=== PATIENT | female | born 1980 | race Two or more races ===

== ENCOUNTER 2020-09-19 17:23 | Outpatient (REF) | payer OTHER, SELFPAY | END 2020-09-19 17:24 | disposition home or self-care (01) | LOC: HO.LAB 17:23 | PROVIDERS: PCP Internal Medicine; Visit Provider Internal Medicine | DX: Z20.828 Contact with and (suspected) exposure to other viral communicable diseases (principal) | CPT/HCPCS: C9803; U0003 ==

== ENCOUNTER 2020-11-30 11:39 | Outpatient (REF) | payer OTHER, SELFPAY ==
--- NOTE | 2020-11-30 | MM_ITS ---
EXAMINATION: MM SCREENING DIGITAL BREAST TOMOSYNTHESIS, BILATERAL CLINICAL INFORMATION: Screening. Asymptomatic. The lifetime risk of breast cancer based on the Tyrer-Cuzick Model is 7.8%. COMPARISON: Mammography: April 29, 2018 TECHNIQUE: Digital breast tomosynthesis is performed in both the craniocaudal and mediolateral oblique views along with computer-aided detection (CAD). Synthesized 2D images are generated from the tomosynthesis. FINDINGS: There are scattered areas of fibroglandular density (ACR BI-RADS breast composition Category b). There are no significant masses, abnormal calcifications, or other abnormalities. MM/MM tomosynthesis screening BI IMPRESSION: There are no significant changes from prior study. ASSESSMENT: BI-RADS 1: Negative RECOMMENDATION: Routine annual mammography screening. This patient's information was entered into a reminder system with a target due date for their next mammogram.
== END 2020-11-30 11:40 | disposition home or self-care (01) ==
LOC: HO.MAMMO 11:39
PROVIDERS: PCP Internal Medicine; Visit Provider Internal Medicine
DX: Z12.31 Encounter for screening mammogram for malignant neoplasm of breast (principal)
CPT/HCPCS: 77063; 77067

== ENCOUNTER 2021-01-10 13:29 | Outpatient (REF) | payer OTHER, SELFPAY ==
--- NOTE | ~2021-01-10 | XR_ITS ---
EXAMINATION: XR LUMBOSACRAL SPINE CLINICAL INFORMATION: Pain COMPARISON: Previous x-ray January 2016 TECHNIQUE: Three views of the lumbosacral spine. FINDINGS: Bone alignment is normal. No fracture or dislocation is seen. There is soft tissue calcification posterior to the L5-S1 disc space that is stable. Disc spaces are otherwise normal. There is lower lumbar spine facet arthritis, left greater than right. XR/XR lumbar spine 2-3V IMPRESSION: Lower lumbar spine facet arthritis, left greater than right. Soft tissue calcification posterior to the L5-S1 disc space.
[2021-01-10 14:33] LABS: MANUAL DIFF FLAG NO
[2021-01-10 14:36] LABS: Basophils Absolute Auto 0.1 X10*3/uL (0.0-0.2); Basophils Percent Auto 0.7 % (0-2); Eosinophils Absolute Auto 0.1 X10*3/uL (0.0-0.4); Eosinophils Percent Auto 0.7 % (0-4); Hematocrit 25.8 % (37-47); Imm Gran Abs Auto 0.02 X10*3/uL (0.00-0.03); Imm Gran Pct Auto 0.3 % (0.0-0.4); Lymphocytes Absolute Auto 1.8 X10*3/uL (1.2-4.9); Lymphocytes Percent Auto 26.6 % (20-40); Mean Corpuscular HGB Conc 25.6 g/dl (31.0-35.0); Mean Platelet Volume 9.8 fL (9.4-12.3); Monocytes Absolute Auto 0.5 X10*3/uL (0.1-1.2); Monocytes Percent Auto 7.8 % (2-11); Neutrophils Absolute Auto 4.4 X10*3/uL (2.0-8.3); Neutrophils Percent Auto 63.9 % (45-73); Platelet Count 742 X10*3/uL (160-400); Red Blood Count 4.13 X10*6/uL (4.20-5.50); Red Cell Distribution Width 21.3 % (11.0-16.0); White Blood Count 6.9 X10*3/uL (4.8-10.8)
[2021-01-10 14:49] LABS: Hemoglobin 6.6 g/dl (12.0-16.0); Mean Corpuscular Volume 62.5 fL (80-98)
[2021-01-10 14:59] LABS: Alanine Aminotransferase 11 U/L (0-31); Albumin Level 4.2 g/dL (3.5-5.0); Alkaline Phosphatase 54 U/L (39-117); Anion Gap 14 (12-20); Aspartate Amino Transferase 13 U/L (5-31); Bilirubin Total 0.4 mg/dL (0.0-1.0); Blood Urea Nitrogen 11 mg/dL (9-16); Calcium 8.9 mg/dL (8.4-10.2); Carbon Dioxide 22 mmol/L (22-29); Chloride 108 mmol/L (96-108); Cholesterol 127 mg/dL; Estimated Glomerular Filt Rate > 60; Glucose Fasting 87 mg/dL (60-99); HDL Cholesterol 35 mg/dL; LDL Cholesterol Calculated 74 mg/dl; Potassium 4.1 mmol/L (3.3-5.1); Sodium 140 mmol/L (135-145); Total Protein 7.4 g/dL (6.5-8.0); Triglycerides 92 mg/dL
[2021-01-10 15:20] LABS: Thyroid Stimulating Hormone 1.73 uIU/mL (0.32-4.0)
== END 2021-01-10 13:30 | disposition home or self-care (01) ==
LOC: HO.LAB 13:29
PROVIDERS: PCP Internal Medicine; Visit Provider Internal Medicine
DX: Z00.00 Encounter for general adult medical examination without abnormal findings (principal); E11.9 Type 2 diabetes mellitus without complications; M54.5 Low back pain; E03.9 Hypothyroidism, unspecified; Z79.899 Other long term (current) drug therapy
CPT/HCPCS: 36415; 72100; 80053; 80061; 84443; 85025; 85060

== ENCOUNTER 2021-01-10 16:03 | Inpatient (IN) | payer OTHER, SELFPAY ==
[2021-01-10] VITALS (7 sets, daily range): BP systolic 113–147; BP diastolic 69–77; PULSE 67–96; RESP 15–18; TEMP 36.4–37.1; O2SAT 99–100; BMI 35.3
[2021-01-10] MEDS: 0.9 % Sodium Chloride 1,000 ML 999 ML IV (17:15)
[2021-01-10 17:20] LABS: MANUAL DIFF FLAG NO
[2021-01-10 17:22] LABS: Basophils Absolute Auto 0.1 X10*3/uL (0.0-0.2); Basophils Percent Auto 0.7 % (0-2); Eosinophils Absolute Auto 0.1 X10*3/uL (0.0-0.4); Hematocrit 24.2 % (37-47); Imm Gran Abs Auto 0.03 X10*3/uL (0.00-0.03); Imm Gran Pct Auto 0.4 % (0.0-0.4); Lymphocytes Absolute Auto 2.1 X10*3/uL (1.2-4.9); Lymphocytes Percent Auto 30.8 % (20-40); Mean Corpuscular HGB Conc 26.4 g/dl (31.0-35.0); Mean Corpuscular Hemoglobin 16.3 pg (27.0-33.0); Mean Corpuscular Volume 61.6 fL (80-98); Mean Platelet Volume 8.7 fL (9.4-12.3); Monocytes Absolute Auto 0.5 X10*3/uL (0.1-1.2); Monocytes Percent Auto 7.5 % (2-11); Neutrophils Absolute Auto 4.1 X10*3/uL (2.0-8.3); Neutrophils Percent Auto 59.6 % (45-73); Platelet Count 640 X10*3/uL (160-400); Red Blood Count 3.93 X10*6/uL (4.20-5.50); Red Cell Distribution Width 20.6 % (11.0-16.0); White Blood Count 6.8 X10*3/uL (4.8-10.8)
[2021-01-10 17:30] LABS: Hemoglobin 6.4 g/dl (12.0-16.0)
[2021-01-10 17:50] LABS: Alanine Aminotransferase 9 U/L (0-31); Alkaline Phosphatase 51 U/L (39-117); Anion Gap 13 (12-20); Aspartate Amino Transferase 13 U/L (5-31); Bilirubin Total 0.3 mg/dL (0.0-1.0); Blood Urea Nitrogen 10 mg/dL (9-16); Calcium 8.6 mg/dL (8.4-10.2); Carbon Dioxide 23 mmol/L (22-29); Chloride 109 mmol/L (96-108); Creatinine Clr Calc Pharmacy 103.8; Estimated Glomerular Filt Rate > 60; Glucose Random 108 mg/dL (60-115); Potassium 4.1 mmol/L (3.3-5.1); Sodium 141 mmol/L (135-145)
[2021-01-10 17:51] LABS: INTERNATIONAL NORM RATIO 1.2 (0.9-1.1); Prothrombin Time 14.8 SEC (10.8-13.0)
[2021-01-10 17:53] LABS: Partial Thromboplastin Time 32.8 SEC (24.1-38.0)
[2021-01-10 17:57] LABS: HCG Quantitative < 2 mIU/mL
[2021-01-10 19:14] LABS: OBS Int Ctl Valid YES; OBS1 POS (NEG)
--- NOTE | 2021-01-10 19:42 | ED.RECABL ---
HPI - Recheck/Abnormal Lab/Rx General Chief Complaint: Recheck/Abnormal Lab/Rx Stated Complaint: abnormal labs Time Seen by Provider: 01/10/21 16:55 Source: patient Mode of arrival: ambulatory Limitations: no limitations History of Present Illness HPI narrative: Patient presents to the ED for low hemoglobin/hematocrit. Patient was referred by PCP for low blood level. Patient's complaint is dizziness and lightheadedness. Patient denies any rectal bleeding, vomiting blood, black stool, or abdominal pain. Patient states having heavy menstruation for the past 5 months. Patient denies any history of alcohol abuse. Patient states history of anemia. Patient denies ever receiving blood transfusion. Related Data Allergies Allergy/AdvReac Type Severity Reaction Status Date / Time No Known Allergies Allergy Verified 01/10/21 16:06 Review of Systems Review of Systems: Yes all other systems are reviewed and are negative Constitutional: Constitutional: Reports as per HPI, Reports no additional constitutional complaints and Reports weakness Comments: Dizziness Eyes: Eyes: Reports as per HPI and Reports no additional eye complaints ENT: Reports system reviewed and no additional complaints, except as documented and Reports as per HPI Cardiovascular: Cardiovascular: Reports as per HPI, Reports no additional cardiovascular complaints and Reports lightheadedness Respiratory: Respiratory: Reports as per HPI and Reports no additional respiratory complaints Gastrointestinal: Gastrointestinal: Reports as per HPI and Reports no additional gastrointestinal complaints Genitourinary: Genitourinary: Reports no additional female genitourinary complaints and Reports as per HPI Comments: Vaginal bleeding Musculoskeletal: Musculoskeletal: Reports no additional musculoskeletal complaints and Reports as per HPI Integumentary/Breasts: Skin/Breast: Reports system reviewed and no additional complaints, except as docu and Reports as per HPI Neurologic: Reports system reviewed and no additional complaints, except as documented, Reports as per HPI and Reports weakness Psychiatric: Psychiatric: Reports no additional psychiatric complaints and Reports as per HPI Endocrine: Endocrine: Reports no additional endocrine complaints and Reports as per HPI PMFSH Past Medical History Medical History (Updated 01/10/21 @ 21:11 by SHAKIRA Gibson) History of kidney stones Surgical History History of Family History Family History (Updated 01/10/21 @ 13:13 by Meggan Calderón) Mother Diabetes High blood pressure High cholesterol Father High blood pressure Social History Social History (Updated 01/10/21 @ 13:13 by Meggan Calderón) Alcohol intake: never Smoking Status: Never smoker Smoked in Last 30 Days: No Use of substances other than those prescribed or required for medical reasons: No Advance Directives: No Advance Directives Information Provided: No Physical Exam Vital Signs: Vital Signs: Last Vital Signs Temp 98.6 F 01/10/21 20:30 Pulse 67 01/10/21 20:30 Resp 15 01/10/21 20:30 BP 125/74 01/10/21 20:30 Pulse Ox 100 01/10/21 20:04 Body Mass Index 35.3 Const: General: cooperative, healthy appearing, comfortable, no acute distress, well developed, alert, awake and Physically active Orientation/consciousness: patient oriented x3 HENMT: Head: Yes normal to inspection, Yes No palpable skull fracture present, Yes normocephalic, Yes atraumatic, No abrasion, No Andrews's sign, No contusion, No cranial bruits, No hematoma, No laceration, No occipital foramen tenderness, No palpable skull fracture, No raccoon eyes, No scalp lesion, No scalp tenderness, No Temporal artery tenderness present and No periorbital ecchymosis Eyes: General: appearance normal, both eyes and all related structures Neck: Neck: Yes normal visual inspection, Yes full ROM, Yes no lymphadenopathy, Yes no meningeal signs, Yes trachea midline, Yes supple and No tender Chest: Chest palpation & inspection: normal inspection of the chest and normal palpation of entire chest wall Breast/axilla inspection: normal inspection of the breasts Resp: Effort & Inspection: normal respiratory effort and able to speak in complete sentences Auscultation: clear to auscultation bilaterally Cardio: Jugular venous distension: no JVD Heart sounds: S1 normal heart sound present and S2 normal heart sound present GI: Inspection: Yes normal to inspection and No abdominal wall ecchymosis Palpation (GI): Soft to palpation, not firm, nontender, no guarding and not rigid : Other: Rectal exam negative for efrain blood or black stool. Stool is brown General: No CVA tenderness and Yes no CVA tenderness External Female Exam: normal external appearance Speculum Exam - Vagina: vaginal bleeding (Mild. Not hemorrhaging.) Speculum Exam - Cervix: normal appearance of the cervix Bimanual exam- vagina & uterus: normal bimanual exam OB/external & speculum: vaginal bleeding (Mild. Not hemorrhaging.) Back/Spine/Pelvis: Back: no CVA tenderness, No CVA tenderness and No back tenderness Skin: General skin exam: no rashes or lesions noted and elasticity normal Neuro: General: patient oriented x3, no meningeal signs and CN's II-XI intact bilaterally Cranial nerves: Yes CN's II-XII intact bilaterally Extrem: General: Yes normal to inspection and Yes full ROM Psych: Appearance: grossly normal, well kempt and not disheveled Course Course Course Narrative: Patient will have repeat hemoglobin hematocrit, type and screen, and rest of labs. Reevaluation(s) Reevaluation #1: Patient vital signs stable. Patient's hemoglobin/hematocrit came back lower. Two packs of red blood cells ordered. Patient signed consent agreeable to blood transfusion. Stool guaiac came back positive. This indicates more GI bleed and not vaginal bleeding cause of anemia. Once again patient denies any abdominal pain, vomiting blood, rectal bleeding, black stool. Patient denies any history of hemorrhoids. Rectal exam negative for external hemorrhoids. Contacted Dr. Hess of Gastroenterology in a waiting for response. Time: 19:54 Reevaluation #2: Spoke with Dr. Hess of gastroenterology who recommends patient be admitted to the hospital and received Protonix. He agrees with plan for patient to receive 2 L of red blood cells. He also states patient will have endoscope in the morning. Spoke with hospitalist Dr. Boyer who agreed to accept the case. Patient presently have stable vital signs. Most likely patient is having GI bleed and anemia not caused by small amount of vaginal bleeding. Time: 21:09 MDM - Recheck/Abnormal Lab/Rx MDM Narrative Medical decision making narrative: GI bleed Lab Data Result diagrams: 01/10/21 17:14 01/10/21 17:14 Labs: Lab Results 01/10/21 01/10/21 01/10/21 Range/Units 17:14 17:14 17:14 WBC 6.8 (4.8-10.8) X10*3/uL RBC 3.93 L (4.20-5.50) X10*6/uL Hgb 6.4 L* (12.0-16.0) g/dl Hct 24.2 L (37-47) % MCV 61.6 L (80-98) fL MCH 16.3 L (27.0-33.0) pg MCHC 26.4 L (31.0-35.0) g/dl RDW 20.6 H (11.0-16.0) % Plt Count 640 H (160-400) X10*3/uL MPV 8.7 L (9.4-12.3) fL Immature Gran % (Auto) 0.4 (0.0-0.4) % Neut % (Auto) 59.6 (45-73) % Lymph % (Auto) 30.8 (20-40) % [place] % (Auto) 7.5 (2-11) % Eos % (Auto) 1.0 (0-4) % Baso % (Auto) 0.7 (0-2) % Lymph # (Auto) 2.1 (1.2-4.9) X10*3/uL [place] # (Auto) 0.5 (0.1-1.2) X10*3/uL Eos # (Auto) 0.1 (0.0-0.4) X10*3/uL Baso # (Auto) 0.1 (0.0-0.2) X10*3/uL Abs Immat Gran (auto) 0.03 (0.00-0.03) X10*3/uL Absolute Neuts (auto) 4.1 (2.0-8.3) X10*3/uL Absolute Nucleated RBC 0.000 (0.0-0.012) X10*3/uL Nucleated RBC % (auto) 0.0 (0.0-0.2) /100WBC PT 14.8 H (10.8-13.0) SEC INR 1.2 H (0.9-1.1) APTT 32.8 (24.1-38.0) SEC Sodium 141 (135-145) mmol/L Potassium 4.1 (3.3-5.1) mmol/L Chloride 109 H (96-108) mmol/L Carbon Dioxide 23 (22-29) mmol/L Anion Gap 13 (12-20) BUN 10 (9-16) mg/dL Creatinine 0.67 (0.5-1.4) mg/dL Estim Creat Clear Calc 103.8 Estimated GFR > 60 Random Glucose 108 (60-115) mg/dL Calcium 8.6 (8.4-10.2) mg/dL Total Bilirubin 0.3 (0.0-1.0) mg/dL AST 13 (5-31) U/L ALT 9 (0-31) U/L Alkaline Phosphatase 51 (39-117) U/L Total Protein 7.0 (6.5-8.0) g/dL Albumin 4.0 (3.5-5.0) g/dL Beta HCG, Quant mIU/mL Stool Occult Blood (NEG) Blood Type Antibody Screen Crossmatch 01/10/21 01/10/21 01/10/21 Range/Units 17:14 18:35 18:35 WBC (4.8-10.8) X10*3/uL RBC (4.20-5.50) X10*6/uL Hgb (12.0-16.0) g/dl Hct (37-47) % MCV (80-98) fL MCH (27.0-33.0) pg MCHC (31.0-35.0) g/dl RDW (11.0-16.0) % Plt Count (160-400) X10*3/uL MPV (9.4-12.3) fL Immature Gran % (Auto) (0.0-0.4) % Neut % (Auto) (45-73) % Lymph % (Auto) (20-40) % [place] % (Auto) (2-11) % Eos % (Auto) (0-4) % Baso % (Auto) (0-2) % Lymph # (Auto) (1.2-4.9) X10*3/uL [place] # (Auto) (0.1-1.2) X10*3/uL Eos # (Auto) (0.0-0.4) X10*3/uL Baso # (Auto) (0.0-0.2) X10*3/uL Abs Immat Gran (auto) (0.00-0.03) X10*3/uL Absolute Neuts (auto) (2.0-8.3) X10*3/uL Absolute Nucleated RBC (0.0-0.012) X10*3/uL Nucleated RBC % (auto) (0.0-0.2) /100WBC PT (10.8-13.0) SEC INR (0.9-1.1) APTT (24.1-38.0) SEC Sodium (135-145) mmol/L Potassium (3.3-5.1) mmol/L Chloride (96-108) mmol/L Carbon Dioxide (22-29) mmol/L Anion Gap (12-20) BUN (9-16) mg/dL Creatinine (0.5-1.4) mg/dL Estim Creat Clear Calc Estimated GFR Random Glucose (60-115) mg/dL Calcium (8.4-10.2) mg/dL Total Bilirubin (0.0-1.0) mg/dL AST (5-31) U/L ALT (0-31) U/L Alkaline Phosphatase (39-117) U/L Total Protein (6.5-8.0) g/dL Albumin (3.5-5.0) g/dL Beta HCG, Quant < 2 mIU/mL Stool Occult Blood POS (NEG) Blood Type A Positive Antibody Screen NEGATIVE Crossmatch See Detail Discharge Plan Discharge Clinical Impression: Acute GI bleeding Patient Disposition: Admitted As Inpatient
--- NOTE | 2021-01-10 20:32 | P.HPHOSP_ITS ---
History of Present Illness Date of Service: 01/10/21 Chief Complaint: Anemia 40-year-old female with the no significant past medical history except for kidney stones; presented to the hospital with a chief complaint of abnormal labs. Noted to have low hemoglobin on routine labs by the PCP and subsequently sent to the hospital for further evaluation. Patient denies any blood in the stool or blood in the vomitus. Denies any signs of active bleeding. Denies any lightheadedness dizziness. Denies any chest pain palpitations. Denies any fever chills cough. Patient mentions that she has been having heavy menstruations lately. And this time she just started her menstruation today denies any gross bleeding. Review of all other systems is negative except mentioned above ER course: Per ER team patient clinically appears stable, vitals stable, hemoglobin noted to be 6.4. Ordered 2 units of PRBC. On rectal exam patient was guaiac positive. Discussed with Dr. Hess from Gastroenterology who recommended to keep NPO for possible endoscopy tomorrow morning. ER team also mentioned that a pelvic exam that is found minimal blood-attributed to 1st day of menstrual cycle. [facility] Medical History (Updated 01/18/21 @ 00:01 by Tricia Calvillo) Acute GI bleeding Anemia Back pain History of kidney stones Thrombocytosis Family History Mother Diabetes High blood pressure High cholesterol Father High blood pressure Surgical History History of History of lithotripsy S/P cystoscopy with ureteral stent placement S/P tubal ligation Social History Household Members: Family Housing: House Alcohol intake: never Smoking Status: Never smoker service: No Meds Allergies Allergy/AdvReac Type Severity Reaction Status Date / Time No Known Allergies Allergy Verified 01/16/21 14:40 Active Medications: Current Medications Generic Name Dose Route Start Last Admin Trade Name Freq PRN Reason Stop Dose Admin Acetaminophen 650 mg 01/10/21 20:29 Acetaminophen 325 Mg Tablet PO Q6H PRN Pain, Mild (Pain Scale 1-3) Dextrose/Sodium Chloride 1,000 mls @ 100 mls/hr 01/10/21 20:30 D51/2ns IVCONT .Q10H FARZAD Sodium Chloride 3 ml 01/11/21 00:00 0.9 % Sodium Chloride Flush 3 Ml Syringe IVFLUSH QSHIFT [facility] Physical Exam Vital Signs and Narrative: Vital Signs: Last Vital Signs Temp 98.6 F 01/10/21 20:15 Pulse 74 01/10/21 20:15 Resp 15 01/10/21 20:15 BP 134/74 01/10/21 20:15 Pulse Ox 100 01/10/21 20:04 Body Mass Index 35.3 Gen: Appears be in no acute distress HEENT: NCAT, Moist mucosa. Pulmonary: Vesicular breath sounds, fair air entry CVS: Normal S1-S2 Abdomen: BS+, Soft, Nontender Extremities: Warm well perfused Neuro: Alert and awake. Results Labs CBC and Chem 7: 01/12/21 08:23 01/11/21 05:44 Labs: Laboratory Results - last 24 hr 01/10/21 01/10/21 01/10/21 17:14 17:14 17:14 MCV 61.6 L MCH 16.3 L MCHC 26.4 L RDW 20.6 H Plt Count 640 H MPV 8.7 L Immature Gran % (Auto) 0.4 Neut % (Auto) 59.6 Lymph % (Auto) 30.8 Bureau % (Auto) 7.5 Eos % (Auto) 1.0 Baso % (Auto) 0.7 Lymph # (Auto) 2.1 Bureau # (Auto) 0.5 Eos # (Auto) 0.1 Baso # (Auto) 0.1 Abs Immat Gran (auto) 0.03 Absolute Neuts (auto) 4.1 Absolute Nucleated RBC 0.000 Nucleated RBC % (auto) 0.0 PT 14.8 H INR 1.2 H APTT 32.8 Anion Gap 13 Estim Creat Clear Calc 103.8 Estimated GFR > 60 Random Glucose 108 Calcium 8.6 Total Bilirubin 0.3 AST 13 ALT 9 Alkaline Phosphatase 51 Total Protein 7.0 Albumin 4.0 Beta HCG, Quant Stool Occult Blood Blood Type Antibody Screen Crossmatch 01/10/21 01/10/21 01/10/21 17:14 18:35 18:35 MCV MCH MCHC RDW Plt Count MPV Immature Gran % (Auto) Neut % (Auto) Lymph % (Auto) Bureau % (Auto) Eos % (Auto) Baso % (Auto) Lymph # (Auto) Bureau # (Auto) Eos # (Auto) Baso # (Auto) Abs Immat Gran (auto) Absolute Neuts (auto) Absolute Nucleated RBC Nucleated RBC % (auto) PT INR APTT Anion Gap Estim Creat Clear Calc Estimated GFR Random Glucose Calcium Total Bilirubin AST ALT Alkaline Phosphatase Total Protein Albumin Beta HCG, Quant < 2 Stool Occult Blood POS Blood Type A Positive Antibody Screen NEGATIVE Crossmatch See Detail Assessment and Plan (1) Anemia: Problem details: S/p blood transfusion Status: Acute 40-year-old female with a past medical history of kidney stones presented to the hospital with a chief complaint of abnormal labs-noted to have anemia. Admitted for further management. Anemia: Patient is guaiac positive. Also reports heavy menstruations. Today is her 1st day of menstrual cycle for this month. Patient's hemoglobin on presentation was 6.4. Ordered 2 units of PRBC in the ER. Follow-up CBC post transfusion. Gastroenterology consult was notified. Will keep her NPO IV fluids Monitor vitals Seevere Microcytic anemia: will send Iron studies; folate, b12, TSH, LDH,Retic count; Electrophoresis. DVT prophylaxis: SCD boots Code status: Full code
[2021-01-10 21:33] LABS: COVID-19 Test Negative (Negative)
[2021-01-11] VITALS (11 sets, daily range): BP systolic 118–142; BP diastolic 68–81; PULSE 59–72; RESP 16–20; TEMP 36.2–36.9; O2SAT 97–100; BMI 35.3
[2021-01-11] MEDS: 0.9 % Sodium Chloride Flush 3 ML SYRINGE IVFLUSH ×4 (00:02→22:53)
--- NOTE | 2021-01-11 00:05 | PC.NURSE ---
call placed to give report.
[2021-01-11] MEDS: Acetaminophen 325 MG TABLET 650 MG PO ×2 (02:47→17:02)
[2021-01-11] MEDS: Dextrose 5 % and 0.45 % NaCl 1,000 ML 100 ML IVCONT (03:09)
[2021-01-11 06:10] LABS: MANUAL DIFF FLAG NO
[2021-01-11 06:14] LABS: Basophils Absolute Auto 0.1 X10*3/uL (0.0-0.2); Basophils Percent Auto 0.7 % (0-2); Eosinophils Absolute Auto 0.1 X10*3/uL (0.0-0.4); Eosinophils Percent Auto 1.5 % (0-4); Hematocrit 30.3 % (37-47); Hemoglobin 8.6 g/dl (12.0-16.0); Imm Gran Abs Auto 0.02 X10*3/uL (0.00-0.03); Imm Gran Pct Auto 0.3 % (0.0-0.4); Lymphocytes Absolute Auto 2.4 X10*3/uL (1.2-4.9); Lymphocytes Percent Auto 33.1 % (20-40); Mean Corpuscular HGB Conc 28.4 g/dl (31.0-35.0); Mean Corpuscular Hemoglobin 19.4 pg (27.0-33.0); Mean Corpuscular Volume 68.2 fL (80-98); Mean Platelet Volume 9.2 fL (9.4-12.3); Monocytes Absolute Auto 0.6 X10*3/uL (0.1-1.2); Monocytes Percent Auto 8.6 % (2-11); NRBC Pct Auto 0.3 /100WBC (0.0-0.2); Neutrophils Absolute Auto 4.1 X10*3/uL (2.0-8.3); Neutrophils Percent Auto 55.8 % (45-73); Platelet Count 560 X10*3/uL (160-400); Red Blood Count 4.44 X10*6/uL (4.20-5.50); Red Cell Distribution Width 27.3 % (11.0-16.0); White Blood Count 7.3 X10*3/uL (4.8-10.8)
[2021-01-11] MEDS: Pantoprazole Sodium 40 MG/10 ML VIAL IVPUSH ×2 (06:27→17:02)
[2021-01-11 06:49] LABS: Anion Gap 12 (12-20); Blood Urea Nitrogen 6 mg/dL (9-16); Calcium 8.1 mg/dL (8.4-10.2); Carbon Dioxide 23 mmol/L (22-29); Chloride 110 mmol/L (96-108); Creatinine Clr Calc Pharmacy 126.5; Estimated Glomerular Filt Rate > 60; Glucose Random 78 mg/dL (60-115); Iron 152 mcg/dL (30-160); Percent Iron Saturation 37 % (15-50); Sodium 141 mmol/L (135-145); Total Iron Binding Capacity 414 mcg/dL (228-428); Unsaturated Iron Binding 262 ug/dL
[2021-01-11 07:11] LABS: Ferritin 5 ng/mL (10-250)
--- NOTE | 2021-01-11 07:54 | PM.GICN ---
History of Present Illness Data of Consult Service Date: 01/11/21 Requesting physician: Dariusz Ceballos Primary Care Provider: Ellis Diego MD HPI Reason for consult: anemia 40-year-old female with hx kidney stones who I am seeing for assessment of anemia. PCP checked labs and found her HGB to be 6 g/dl so sent to ED. Patient denies any blood in the stool, melena, hematuria, nose bleeds or other signs of overt GI bleeding. Denies any lightheadedness dizziness. Denies any chest pain palpitations. Denies any fever chills cough. She does admit to regular menses may have been heavy 6 months ago but not now. Her appetite is fine and weight is stable Review of Systems Review of Systems: Yes all other systems are reviewed and are negative [facility] Past Medical History Medical History (Updated 01/10/21 @ 21:11 by SHAKIRA Gibson) History of kidney stones Family History Family History (Updated 01/10/21 @ 13:13 by Meggan Calderón) Mother Diabetes High blood pressure High cholesterol Father High blood pressure Surgical History Surgical History History of Social History Social History (Updated 01/10/21 @ 13:13 by Meggan Calderón) Household Members: Family Housing: House Do you presently have visiting nurse or other home services: No Alcohol intake: never Smoking Status: Never smoker Smoked in Last 30 Days: No Use of substances other than those prescribed or required for medical reasons: No Currently Displaying Signs/Symptoms of Drug Intoxication Withdrawal: No Any prior treatment program specific to substance use: No Have you been hit, kicked, punched, or otherwise hurt by someone within the past year? If so, by whom?: No Do you feel safe in your current relationship?: Yes Is there a partner from a previous relationship who is making you feel unsafe now?: No Are you made to feel afraid or neglected: No Advance Directives: No Advance Directives Information Provided: No Do you have thoughts of harming others: None Do you have a plan to hurt others: No Plan Recently lost weight without trying: No service: No Meds Allergies Allergy/AdvReac Type Severity Reaction Status Date / Time No Known Allergies Allergy Verified 01/10/21 16:06 Active Medications: Current Medications Generic Name Dose Route Start Last Admin Trade Name Santo PRN Reason Stop Dose Admin Acetaminophen 650 mg 01/10/21 20:29 01/11/21 02:47 Acetaminophen 325 Mg Tablet PO 650 mg Q6H PRN Administration Pain, Mild (Pain Scale 1-3) Dextrose/Sodium Chloride 1,000 mls @ 100 mls/hr 01/10/21 20:30 01/11/21 06:27 D51/2ns IVCONT 100 mls/hr .Q10H FARZAD Infusion Pantoprazole Sodium 40 mg 01/11/21 06:30 01/11/21 06:27 Pantoprazole Sodium 40 Mg/10 Ml Vial IVPUSH 40 mg BID@0630,1630 [facility] Administration Pharmacy Consult 1 each 01/10/21 20:50 Consult Rx Perform Med Rec MISCELLANE ONCE PRN Consult order Sodium Chloride 3 ml 01/11/21 00:00 01/11/21 00:02 0.9 % Sodium Chloride Flush 3 Ml Syringe IVFLUSH 3 ml QSHIFT [facility] Administration Home Medications Medication Instructions Recorded Confirmed Last Taken Type No Known Home Meds 01/10/21 01/10/21 Unknown History Physical Exam Vital Signs: Vital Signs: Last Vital Signs Temp 98.1 F 01/11/21 07:09 Pulse 72 01/11/21 07:09 Resp 17 01/11/21 07:09 BP 123/72 01/11/21 07:09 Pulse Ox 99 01/11/21 07:09 Body Mass Index 35.3 EXAM: GENERAL: The patient is well developed and nontoxic. VITAL SIGNS:see above HEENT: Nonicteric sclerae, PERRLA, EOMI. Oropharynx clear. Moist mucous membranes. Conjunctivae appear pale. No thyroid mass. CHEST: Chest wall is nontender. HEART: Regular rate and rhythm without murmurs. LUNGS: Clear to auscultation bilaterally. ABDOMEN: Soft, positive bowel sounds, nontender, no organomegaly.no flank tenderness GENITAL:not done RECTAL: not done SKIN: No rash, no excessive bruising, petechiae, or purpura. NEUROLOGIC: Cranial nerves II-XII intact without motor/sensory deficit. Neck: Neck: Yes normal visual inspection Extrem: General: Yes normal to inspection Psych: Appearance: grossly normal Results Labs CBC & Chem 7: 01/11/21 05:44 01/11/21 05:44 Labs: Short CBC 01/10/21 01/11/21 Range/Units 17:14 05:44 WBC 6.8 7.3 (4.8-10.8) X10*3/uL Hgb 6.4 L* 8.6 L D (12.0-16.0) g/dl Hct 24.2 L 30.3 L D (37-47) % Plt Count 640 H 560 H (160-400) X10*3/uL BMP 01/10/21 01/11/21 17:14 05:44 Sodium 141 141 Potassium 4.1 4.0 Chloride 109 H 110 H Carbon Dioxide 23 23 BUN 10 6 L Creatinine 0.67 0.55 Calcium 8.6 8.1 L Liver Function 01/10/21 Range/Units 17:14 Total Bilirubin 0.3 (0.0-1.0) mg/dL AST 13 (5-31) U/L ALT 9 (0-31) U/L Alkaline Phosphatase 51 (39-117) U/L Albumin 4.0 (3.5-5.0) g/dL Assessment and Plan (1) Acute GI bleeding: Status: Acute (2) Anemia: Status: Acute 1/ Asymptomatic anemia with iron def, no overt signs of GI bleeding ddx; small bowel enteropathy, occult GI blood loss e.g neoplasia, polyp, mass crohns, AVM PLAN: 1 EGD and colonoscopy for further assessment 2/ transfuse for HGB target 8 g/dl 3/ will need iron supplements longer term, possible field auto appraiser review if GI w/u is negative, check UA as well
[2021-01-11 08:58] LABS: Folate 10.1 ng/mL (> or = 4.0); Vitamin B12 309 pg/mL (200-900)
--- NOTE | 2021-01-11 09:10 | P.CDIC_ITS ---
CDI Concurrent Query Service Date: 01/11/21 Documentation Clarification: Please clarify if you are treating a proba ble/suspected/likely or confirmed: Acute blood loss anemia poa Please specify if known Provider Response: Acute Blood Loss Anemia PLEASE DO NOT DELETE/MODIFY EXISTING CONTENT Additional information is needed in order to code to the highest accuracy and appropriate Severity of Illness (SOI). Please clarify the information noted below in your progress notes and discharge summary. Risk Factors/Clinical Indicators/Treatments Ed: rectal exam guaiac positive indicates more GI bleed not vaginal bleed causing anemia. HGB 6.6 6.4 HCT 25.8 24.2 Transfused 2 units PRBC H&P: Severe microcytic anemia CDS: Anjelica Frank CCS, CDIS Contact Number: [phone] Please Review the information above and exercise your independent professional judgment in responding to the query. If you concur, pleas document in the PROGRESS NOTES and DISCHARGE SUMMARY. If you do not agree with the query, please document in the query above. THIS QUERY IS PART OF THE PERMANENT MEDICAL RECORD
--- NOTE | 2021-01-11 09:50 | MHC.CM.PN ---
met with pt who is indepedent she does not anticipate neeing ana morgan pt has own transportaion home
--- NOTE | 2021-01-11 13:35 | P.PNIM_ITS ---
Subjective Subjective Date of Service: 01/11/21 Interval History: Patient seen and examined at bedside Patient was reporting weakness Constitutional Constitutional: Reports as per HPI, Reports no additional constitutional complaints and Reports weakness Eyes Eyes: Reports as per HPI and Reports no additional eye complaints ENT Ears, Nose, Mouth, and Throat: Reports system reviewed and no additional complaints, except as documented and Reports as per HPI Cardiovascular Cardiovascular: Reports as per HPI, Reports no additional cardiovascular complaints and Reports lightheadedness Respiratory Respiratory: Reports as per HPI and Reports no additional respiratory complaints Gastrointestinal Gastrointestinal: Reports as per HPI and Reports no additional gastrointestinal complaints Musculoskeletal Musculoskeletal: Reports no additional musculoskeletal complaints and Reports as per HPI Integumentary/Breasts Skin/Breast: Reports no additional skin complaints and Reports as per HPI Neurologic Neurologic: Reports system reviewed and no additional complaints, except as documented, Reports as per HPI and Reports weakness Psychiatric Psychiatric: Reports no additional psychiatric complaints and Reports as per HPI Endocrine Endocrine: Reports no additional endocrine complaints and Reports as per HPI Physical Exam Vital Signs: Vital Signs: Last Vital Signs Temp 97.7 F 01/11/21 11:23 Pulse 63 01/11/21 11:23 Resp 18 01/11/21 11:23 BP 134/81 01/11/21 11:23 Pulse Ox 99 01/11/21 11:23 Body Mass Index 35.3 Const: General: cooperative, healthy appearing, comfortable, no acute distress, well developed, alert, awake and Physically active Orientation/consciousness: patient oriented x3 HENMT: Head: Yes normal to inspection, Yes No palpable skull fracture present, Yes normocephalic, Yes atraumatic, No abrasion, No Andrews's sign, No contusion, No cranial bruits, No hematoma, No laceration, No occipital foramen tenderness, No palpable skull fracture, No raccoon eyes, No scalp lesion, No scalp tenderness, No Temporal artery tenderness present and No periorbital ecchymosis Eyes: General: appearance normal, both eyes and all related structures Neck: Neck: Yes normal visual inspection, Yes full ROM, Yes no lymphadenopathy, Yes no meningeal signs, Yes trachea midline, Yes supple and No tender Chest: Chest palpation & inspection: normal inspection of the chest and normal palpation of entire chest wall Breast/axilla inspection: normal inspection of the breasts Resp: Effort & Inspection: normal respiratory effort and able to speak in complete sentences Auscultation: clear to auscultation bilaterally Cardio: Jugular venous distension: no JVD Heart sounds: S1 normal heart sound present and S2 normal heart sound present GI: Inspection: Yes normal to inspection and No abdominal wall ecchymosis Palpation (GI): Soft to palpation, not firm, nontender, no guarding and not rigid : Other: Rectal exam negative for efrain blood or black stool. Stool is brown General: No CVA tenderness and Yes no CVA tenderness External Female Exam: normal external appearance Speculum Exam - Vagina: vaginal bleeding (Mild. Not hemorrhaging.) Speculum Exam - Cervix: normal appearance of the cervix Bimanual exam- vagina & uterus: normal bimanual exam OB/external & speculum: vaginal bleeding (Mild. Not hemorrhaging.) Back/Spine/Pelvis: Back: no CVA tenderness, No CVA tenderness and No back tenderness Skin: General skin exam: no rashes or lesions noted and elasticity normal Neuro: General: patient oriented x3, no meningeal signs and CN's II-XI intact bilaterally Cranial nerves: Yes CN's II-XII intact bilaterally Extrem: General: Yes normal to inspection and Yes full ROM Psych: Appearance: grossly normal, well kempt and not disheveled Objective Data Current Medications Generic Name Dose Route Start Last Admin Trade Name Freq PRN Reason Stop Dose Admin Acetaminophen 650 mg 01/10/21 20:29 01/11/21 02:47 Acetaminophen 325 Mg Tablet PO 650 mg Q6H PRN Administration Pain, Mild (Pain Scale 1-3) Pantoprazole Sodium 40 mg 01/11/21 06:30 01/11/21 06:27 Pantoprazole Sodium 40 Mg/10 Ml Vial IVPUSH 40 mg BID@0602,4430 [facility] Administration Pharmacy Consult 1 each 01/10/21 20:50 Consult Rx Perform Med Rec MISCELLANE ONCE PRN Consult order Sodium Chloride 3 ml 01/11/21 00:00 01/11/21 09:52 0.9 % Sodium Chloride Flush 3 Ml Syringe IVFLUSH 3 ml QSHIFT [facility] Administration Labs CBC & Chem 7: 01/11/21 05:44 01/11/21 05:44 Assessment and Plan (1) Anemia: Status: Acute Assessment and Plan: 40-year-old female with a past medical history of kidney stones presented to the hospital with a chief complaint of abnormal labs-noted to have anemia. Admitted for further management. Acute blood loss anemia likely combination of possible GI bleed and menstrutation Gastroenterology consult was notified. Continue PPI Received 2 units of PRBCs hemoglobin improved from 6.8-8.6 Seen by GI plan for EGD and colonoscopy tomorrow NPO from midnight DVT prophylaxis: SCD boots given anemia requiring transfusion
[2021-01-11] MEDS: PEG 3350/Na Sulf,Bicarb,Cl/KCL 4,000 ML SOLN.RECON 4000 ML PO (21:02)
[2021-01-12] VITALS (8 sets, daily range): BP systolic 98–140; BP diastolic 54–86; PULSE 50–84; RESP 16–20; TEMP 36.1–36.9; O2SAT 97–100; BMI 35.3
[2021-01-12] MEDS: Pantoprazole Sodium 40 MG/10 ML VIAL IVPUSH (06:25)
[2021-01-12 08:41] LABS: MANUAL DIFF FLAG NO
[2021-01-12 08:44] LABS: Basophils Percent Auto 0.4 % (0-2); Eosinophils Absolute Auto 0.1 X10*3/uL (0.0-0.4); Eosinophils Percent Auto 1.4 % (0-4); Hematocrit 32.7 % (37-47); Hemoglobin 9.3 g/dl (12.0-16.0); Imm Gran Abs Auto 0.04 X10*3/uL (0.00-0.03); Imm Gran Pct Auto 0.4 % (0.0-0.4); Lymphocytes Absolute Auto 1.9 X10*3/uL (1.2-4.9); Lymphocytes Percent Auto 20.6 % (20-40); Mean Corpuscular HGB Conc 28.4 g/dl (31.0-35.0); Mean Corpuscular Hemoglobin 19.3 pg (27.0-33.0); Mean Corpuscular Volume 67.7 fL (80-98); Mean Platelet Volume 9.2 fL (9.4-12.3); Monocytes Absolute Auto 0.7 X10*3/uL (0.1-1.2); Monocytes Percent Auto 7.3 % (2-11); Neutrophils Absolute Auto 6.4 X10*3/uL (2.0-8.3); Neutrophils Percent Auto 69.9 % (45-73); Platelet Count 622 X10*3/uL (160-400); Red Blood Count 4.83 X10*6/uL (4.20-5.50); Red Cell Distribution Width 27.2 % (11.0-16.0); White Blood Count 9.2 X10*3/uL (4.8-10.8)
--- NOTE | 2021-01-12 09:12 | PC.NURSE ---
To EGD/colonoscpy procedure via WC at 0900. pt aware and agrees with plan of care.
--- NOTE | 2021-01-12 09:30 | HO.ANESPROP2 ---
[facility] Active Problems Active Problems: All Active Problems (Updated 01/10/21 @ 21:11 by SHAKIRA Gibson) Acute GI bleeding (Acute) Anemia (Acute) Physical exam (Acute) Back pain (Acute) Past Medical History Medical History (Updated 01/12/21 @ 09:58 by Michelle aDvis) Acute GI bleeding Anemia Back pain History of kidney stones Thrombocytosis Family History Family History Mother Diabetes High blood pressure High cholesterol Father High blood pressure Family history of problems with anesthesia: No Surgical History Surgical History (Updated 01/12/21 @ 09:48 by Michelle Davis) History of History of lithotripsy S/P cystoscopy with ureteral stent placement S/P tubal ligation History of Problems with Anesthesia: Yes (PONV) Social History Social History Household Members: Family Housing: House Do you presently have visiting nurse or other home services: No Alcohol intake: never Smoking Status: Never smoker Smoked in Last 30 Days: No Use of substances other than those prescribed or required for medical reasons: No Currently Displaying Signs/Symptoms of Drug Intoxication Withdrawal: No Any prior treatment program specific to substance use: No Have you been hit, kicked, punched, or otherwise hurt by someone within the past year? If so, by whom?: No Do you feel safe in your current relationship?: Yes Is there a partner from a previous relationship who is making you feel unsafe now?: No Are you made to feel afraid or neglected: No Advance Directives: No Advance Directives Information Provided: No Do you have thoughts of harming others: None Do you have a plan to hurt others: No Plan Recently lost weight without trying: No service: No Meds Allergies Allergy/AdvReac Type Severity Reaction Status Date / Time No Known Allergies Allergy Verified 01/10/21 16:06 Active Medications: Current Medications Generic Name Dose Route Start Last Admin Trade Name Freq PRN Reason Stop Dose Admin Acetaminophen 650 mg 01/10/21 20:29 01/11/21 17:02 Acetaminophen 325 Mg Tablet PO 650 mg Q6H PRN Administration Pain, Mild (Pain Scale 1-3) Pantoprazole Sodium 40 mg 01/11/21 06:30 01/12/21 06:25 Pantoprazole Sodium 40 Mg/10 Ml Vial IVPUSH 40 mg BID@1804,2714 [facility] Administration Pharmacy Consult 1 each 01/10/21 20:50 Consult Rx Perform Med Rec MISCELLANE ONCE PRN Consult order Sodium Chloride 3 ml 01/11/21 00:00 01/11/21 22:53 0.9 % Sodium Chloride Flush 3 Ml Syringe IVFLUSH 3 ml QSHIFT [facility] Administration Home Medications Medication Instructions Recorded Confirmed Last Taken Type No Known Home Meds 01/10/21 01/10/21 Unknown History Exam Exam Date and Time: January 12, 2021 0930 Height,Weight and Vital Signs: Height 5 ft Weight 82.1 kg Last Vital Signs Temp 97.8 F 01/12/21 08:57 Pulse 78 01/12/21 08:57 Resp 18 01/12/21 08:57 BP 129/67 01/12/21 08:57 Pulse Ox 100 01/12/21 08:57 Pertinent Lab Results Pertinent Lab Results: Laboratory Tests 01/10/21 01/10/21 01/10/21 17:14 17:14 17:14 WBC 6.8 RBC 3.93 L Hgb 6.4 L* Hct 24.2 L MCV 61.6 L MCH 16.3 L MCHC 26.4 L RDW 20.6 H Plt Count 640 H MPV 8.7 L Immature Gran % (Auto) 0.4 Neut % (Auto) 59.6 Lymph % (Auto) 30.8 [place] % (Auto) 7.5 Eos % (Auto) 1.0 Baso % (Auto) 0.7 Lymph # (Auto) 2.1 [place] # (Auto) 0.5 Eos # (Auto) 0.1 Baso # (Auto) 0.1 Abs Immat Gran (auto) 0.03 Absolute Neuts (auto) 4.1 Absolute Nucleated RBC 0.000 Nucleated RBC % (auto) 0.0 Smear Path Review Cancelled PT 14.8 H INR 1.2 H APTT 32.8 Sodium 141 Potassium 4.1 Chloride 109 H Carbon Dioxide 23 Anion Gap 13 BUN 10 Creatinine 0.67 Estim Creat Clear Calc 103.8 Estimated GFR > 60 Random Glucose 108 Calcium 8.6 Iron TIBC % Saturation Unsat Iron Binding Ferritin Total Bilirubin 0.3 AST 13 ALT 9 Alkaline Phosphatase 51 Total Protein 7.0 Albumin 4.0 Vitamin B12 Folate Beta HCG, Quant Stool Occult Blood COVID-19 ([facility]) COVID-19 Clin Com Blood Type Antibody Screen Crossmatch 01/10/21 01/10/21 01/10/21 17:14 18:35 18:35 WBC RBC Hgb Hct MCV MCH MCHC RDW Plt Count MPV Immature Gran % (Auto) Neut % (Auto) Lymph % (Auto) [place] % (Auto) Eos % (Auto) Baso % (Auto) Lymph # (Auto) [place] # (Auto) Eos # (Auto) Baso # (Auto) Abs Immat Gran (auto) Absolute Neuts (auto) Absolute Nucleated RBC Nucleated RBC % (auto) Smear Path Review PT INR APTT Sodium Potassium Chloride Carbon Dioxide Anion Gap BUN Creatinine Estim Creat Clear Calc Estimated GFR Random Glucose Calcium Iron TIBC % Saturation Unsat Iron Binding Ferritin Total Bilirubin AST ALT Alkaline Phosphatase Total Protein Albumin Vitamin B12 Folate Beta HCG, Quant < 2 Stool Occult Blood POS COVID-19 ([facility]) COVID-19 Clin Com Blood Type A Positive Antibody Screen NEGATIVE Crossmatch See Detail 01/10/21 01/11/21 01/11/21 21:08 05:44 05:44 WBC 7.3 RBC 4.44 Hgb 8.6 L D Hct 30.3 L D MCV 68.2 L D MCH 19.4 L MCHC 28.4 L RDW 27.3 H Plt Count 560 H MPV 9.2 L Immature Gran % (Auto) 0.3 Neut % (Auto) 55.8 Lymph % (Auto) 33.1 [place] % (Auto) 8.6 Eos % (Auto) 1.5 Baso % (Auto) 0.7 Lymph # (Auto) 2.4 [place] # (Auto) 0.6 Eos # (Auto) 0.1 Baso # (Auto) 0.1 Abs Immat Gran (auto) 0.02 Absolute Neuts (auto) 4.1 Absolute Nucleated RBC 0.020 H Nucleated RBC % (auto) 0.3 H Smear Path Review PT INR APTT Sodium 141 Potassium 4.0 Chloride 110 H Carbon Dioxide 23 Anion Gap 12 BUN 6 L Creatinine 0.55 Estim Creat Clear Calc 126.5 Estimated GFR > 60 Random Glucose 78 Calcium 8.1 L Iron TIBC % Saturation Unsat Iron Binding Ferritin Total Bilirubin AST ALT Alkaline Phosphatase Total Protein Albumin Vitamin B12 Folate Beta HCG, Quant Stool Occult Blood COVID-19 ([facility]) Negative COVID-19 Clin Com See Note Blood Type Antibody Screen Crossmatch 01/11/21 01/11/21 01/12/21 05:44 05:44 08:23 WBC 9.2 RBC 4.83 Hgb 9.3 L Hct 32.7 L MCV 67.7 L MCH 19.3 L MCHC 28.4 L RDW 27.2 H Plt Count 622 H MPV 9.2 L Immature Gran % (Auto) 0.4 Neut % (Auto) 69.9 Lymph % (Auto) 20.6 [place] % (Auto) 7.3 Eos % (Auto) 1.4 Baso % (Auto) 0.4 Lymph # (Auto) 1.9 [place] # (Auto) 0.7 Eos # (Auto) 0.1 Baso # (Auto) 0.0 Abs Immat Gran (auto) 0.04 H Absolute Neuts (auto) 6.4 Absolute Nucleated RBC 0.000 Nucleated RBC % (auto) 0.0 Smear Path Review PT INR APTT Sodium Potassium Chloride Carbon Dioxide Anion Gap BUN Creatinine Estim Creat Clear Calc Estimated GFR Random Glucose Calcium Iron 152 TIBC 414 % Saturation 37 Unsat Iron Binding 262 Ferritin 5 L Total Bilirubin AST ALT Alkaline Phosphatase Total Protein Albumin Vitamin B12 309 Folate 10.1 Beta HCG, Quant Stool Occult Blood COVID-19 ([facility]) COVID-19 Clin Com Blood Type Antibody Screen Crossmatch Airway Mallampati Class: II TM Dist: >3cm Neck ROM: Full Heart: RRR Lungs: CTAB Assessment and Plan Assessment Anesthesia Assessment: Anesthesia Plan Discussed and Chart Reviewed Final Anesthetic Review NPO: Yes ASA Class: III and Emergency Final Preanesthetic Review: No Changes in Pt Med Stat, Meds/Allgs Chart Reviewed, Consent Obtained/Reviewed and Anes Risks/Benef Reviewed Patient Risk: Intermediate Procedure Risk: Low Assessment/Block/Sedation in SS: Assess/Block/Sedation-SS Anesthetic Plan Anesthetic Plan: MAC: Disposition: Standard PACU
--- NOTE | 2021-01-12 09:32 | P.OP_ITS ---
Operative Note Operative Note Date of Service: 01/12/21 Narrative: Operative Information Procedure Description: EGD, Colonoscopy FLEXIBLE TRANSORAL UPPER GASTROINTESTINAL ENDOSCOPY AND COLONOSCOPY PROCEDURE NOTE UPPER ENDOSCOPY Consent: Indications for the procedure and potential complications of bleeding, perforation, reaction to medications and missed diagnosis were discussed with the patient and informed consent was obtained. Instrument: Olympus GIF H 190 J mid size upper endoscope Monitoring: Vital signs and clinical assessment, continuous EKG monitoring, Pulse oximetry, Carbon Dioxide monitoring and blood pressure monitoring were done throughout the procedure. Procedure: The patient was placed in the left lateral decubitis position and pre-procedure medications were administered and a bite block was placed. The endoscope was inserted into the mouth and advanced under direct vision to the third part of duodenum. A careful inspection was made as the upper endoscope was withdrawn including a retroflexed examination of the proximal stomach; Findings and interventions are described below. Findings: Larynx:normal Esophagus: GE junction at 35 cm, diaphragm hiatus at 35 cm, normal mucosa, non obstructive schatzki ring noted Stomach: Patchy erythema in proximal stomach. Biopsies were obtained. Grade 2 flap valve on retroflexed examination of the cardia. Duodenum: Normal bulb and descending duodenum, bx taken Intervention: Biopsies as noted above COLONOSCOPY Instrument: Olympus variable stiffness pediatric scope 190L Colonoscopy Monitoring: Vital signs and clinical assessment, continuous EKG monitoring, Pulse oximetry, Carbon Dioxide monitoring and blood pressure monitoring were done throughout the procedure. Colon withdrawal time was 8 minutes. Procedure: The patient was placed in the left lateral decubitis position and pre-procedure medications were administered. After a digital rectal examination of the ano-rectum, the video colonoscope was inserted into the rectum and advanced through the colon to the cecum/TI. The colonoscope was slowly withdrawn in a retrograde panoramic fashion and the colon mucosa was carefully examined including a retroflexed view of the rectum. Findings and interventions are described below. Procedure Difficulty:easy Findings: Terminal Ileum-normal Cecum:normal Ascending Colon: normal Transverse Colon -normal Descending Colon:normal Sigmoid Colon: normal Rectum: Retroflexion with small internal hemorrhoids, grade I Anorectum - normal Colon preparation: [place] Bowel Preparation Scale Right colon; 3 Transverse colon: 3 Left colon; 3 (0 = Unprepared colon segment with mucosa not seen due to solid stool that cannot be cleared. 1 = Portion of mucosa of the colon segment seen, but other areas of the colon segment not well seen due to staining, residual stool and/or opaque liquid. 2 = Minor amount of residual staining, small fragments of stool and/or opaque liquid, but mucosa of colon segment seen well. 3 = Entire mucosa of colon segment seen well with no residual staining, small fragments of stool or opaque liquid) Impression and Post Procedure Diagnosis: Endoscopy Findings: gastritis' schatzki ring Colonoscopy Findings: internal hemorrhoids Plan: Await Pathology results Repeat Colonoscopy in 10 years or earlier if clinically indicated High fiber diet leaflet avoid straining at stool, epsom salts and sitz bath, anusol supps or cream as needed o/p capsule endoscopy telecommunications manager review iron replacement can go home today if no other medical issues Above findings were reviewed with the patient and relevant handouts were provided if indicated.
--- NOTE | 2021-01-12 09:32 | MHC.SHP ---
Pre-Procedural Eval Section A The patient is an INPATIENT: Yes The History & Physical has been completed within 30 days and I have reviewed it.: Yes Section B Chief Complaint: Anemia Allergies: Allergies Allergy/AdvReac Type Severity Reaction Status Date / Time No Known Allergies Allergy Verified 01/10/21 16:06 Plan Diagnosis/Plan: Unchanged I have reviewed the history and physical and performed a pertinent physical examination on my patient. No changes have occurred unless specified.
--- NOTE | 2021-01-12 09:32 | PM.OP ---
Brief Operative Note Date of Service: 01/12/21 Pre-op diagnosis: anemia Post-op diagnosis: same Procedure: see op note Surgeon: Bekah Hess MD Anesthesia: MAC Estimated blood loss (mL): 0 Condition: stable Disposition: PACU
--- NOTE | 2021-01-12 11:40 | PC.NURSE ---
returned from procedure. no complaints at this time. awake and alert. no complaints.
[2021-01-12] MEDS: 0.9 % Sodium Chloride Flush 3 ML SYRINGE IVFLUSH (11:41)
--- NOTE | 2021-01-12 12:26 | P.DS_ITS ---
DS: Providers Provider Date of Service: 01/13/21 Date of admission: 01/10/21 20:29 Primary care physician: Ellis Diego MD Consults: 01/10/21 20:30 Consult to Gastroenterology Routine Consulting Provider: Bekah Hess Reason for consultation: Anemia/GI bleed DS: Diagnosis Discharge Diagnosis (1) Acute GI bleeding: Status: Acute (2) Anemia: Status: Acute Problem details: S/p blood transfusion DS: Medications Discharge Medications Home Medications: Previous Rx's Medication Instructions Recorded ferrous sulfate 324 mg PO BID #60 tab 01/12/21 omeprazole 20 mg PO DAILY #20 tab 01/12/21 DS: Summary Hospital Course Hospital Course: HPI 40-year-old female with the no significant past medical history except for kidney stones; presented to the hospital with a chief complaint of abnormal labs. Noted to have low hemoglobin on routine labs by the PCP and subsequently sent to the hospital for further evaluation. Patient denies any blood in the stool or blood in the vomitus. Denies any signs of active bleeding. Denies any lightheadedness dizziness. Denies any chest pain palpitations. Denies any fever chills cough. Patient mentions that she has been having heavy menstruations lately. And this time she just started her menstruation today denies any gross bleeding. Review of all other systems is negative except mentioned above ER course: Per ER team patient clinically appears stable, vitals stable, hemoglobin noted to be 6.4. Ordered 2 units of PRBC. On rectal exam patient was guaiac positive. Discussed with Dr. Hess from Gastroenterology who recommended to keep NPO for possible endoscopy tomorrow morning. ER team also mentioned that a pelvic exam that is found minimal blood-attributed to 1st day of menstrual cycle. Hospital course 40-year-old female admitted with acute blood loss anemia with hemoglobin 6.4 on admission, patient was started on PPI, patient was also reported heavy periods , Patient was seen by Gastroenterology patient underwent EGD and colonoscopy, EGD was unremarkable colonoscopy shows small hemorrhoid, GI recommended supportive management, patient received 2 units of PRBCs hemoglobin improved to 9 and remained stable, patient was stable discharged home on iron tab, patient will follow up obstetrics and gynecology professor as outpatient Time Spent with Patient Time attestation: Total time spent providing and/or coordinating discharge services: Discharge coordination time: Greater than 30 minutes Physical Exam Vital Signs: Vital Signs: Last Vital Signs Temp 97.1 F 01/12/21 11:12 Pulse 50 01/12/21 11:12 Resp 16 01/12/21 11:12 BP 140/64 H 01/12/21 11:12 Pulse Ox 100 01/12/21 11:30 Body Mass Index 35.3 DS: Data Data Completed and Pending Pending studies at discharge: Pending at discharge 01/12/21 10:03 Surgical [PTH] Routine Labs on day of discharge: Laboratory Results - last 24 hr 01/12/21 08:23 WBC 9.2 RBC 4.83 Hgb 9.3 L Hct 32.7 L MCV 67.7 L MCH 19.3 L MCHC 28.4 L RDW 27.2 H Plt Count 622 H MPV 9.2 L Immature Gran % (Auto) 0.4 Neut % (Auto) 69.9 Lymph % (Auto) 20.6 [place] % (Auto) 7.3 Eos % (Auto) 1.4 Baso % (Auto) 0.4 Lymph # (Auto) 1.9 [place] # (Auto) 0.7 Eos # (Auto) 0.1 Baso # (Auto) 0.0 Abs Immat Gran (auto) 0.04 H Absolute Neuts (auto) 6.4 Absolute Nucleated RBC 0.000 Nucleated RBC % (auto) 0.0 Discharge Plan Discharge Anticipated Discharge Date/Time: 01/12/21 12:21 Patient Disposition: Home, Self-Care Referrals: Ellis Diego MD [Primary Care Provider] - Discharge Medications: New ferrous sulfate 324 mg (65 mg iron) tablet,delayed release (DR/EC) 324 mg PO BID Qty: 60 RF: 0 omeprazole 20 mg tablet,delayed release (DR/EC) 20 mg PO DAILY Qty: 20 RF: 0 Discharge Orders: Discharge Order (Routine); Ordered 01/12/21 Ordered By: Dariusz Ceballos Diet: advance to usual diet Activity on Discharge: As tolerated Stand Alone Forms: Patient Portal Discharge page Care Plan Goals: treat anemia Health Concerns: anemia Plan of Treatment: see above Discharge Date/Time: 01/12/21 14:14
--- NOTE | 2021-01-12 12:33 | MHC.CM.PN ---
Patient has been medically cleared for dc to home today, no services.
[2021-01-13 21:32] LABS: Hematocrit 30.7 % (35.0-45.0); Hemoglobin 8.8 g/dL (11.7-15.5); MCH 19.3 pg (27.0-33.0); MCV 67.5 fL (80.0-100.0); RBC 4.55 Million/uL (3.80-5.10); RDW 27.4 % (11.0-15.0)
== END 2021-01-12 14:14 | disposition home or self-care (01) | DRG 241 ==
LOC: HO.ED 21:11 → HO.EDOVER 21:16 → HO.IMC 23:59
PROVIDERS: Internal Medicine Gastroenterology; Physician Assistant; Admitting Provider Hospitalist; Emergency Provider Student in an Organized Health Care Education/Training Program; PCP Internal Medicine; Visit Provider Internal Medicine
DX: K29.71 Gastritis, unspecified, with bleeding (principal); D62 Acute posthemorrhagic anemia; K22.2 Esophageal obstruction; K64.8 Other hemorrhoids; N92.0 Excessive and frequent menstruation with regular cycle; Z20.822 Contact with and (suspected) exposure to COVID-19; Z87.442 Personal history of urinary calculi
CPT/HCPCS: 36415; 80048; 80053; 82272; 82607; 82728; 82746; 83021; 83540; 84702; 85014; 85018; 85025; 85041; 85610; 85730; 86850; 86900; 86923; 87635; 88305; 88342; 96361; 96374; 99285; J2405; P9016

== ENCOUNTER 2021-01-16 15:04 | Outpatient (REF) | payer OTHER, SELFPAY ==
[2021-01-16 15:29] LABS: MANUAL DIFF FLAG NO
[2021-01-16 15:36] LABS: Basophils Percent Auto 0.7 % (0-2); Eosinophils Absolute Auto 0.1 X10*3/uL (0.0-0.4); Eosinophils Percent Auto 2.4 % (0-4); Hematocrit 32.1 % (37-47); Hemoglobin 9.2 g/dl (12.0-16.0); Imm Gran Abs Auto 0.02 X10*3/uL (0.00-0.03); Imm Gran Pct Auto 0.3 % (0.0-0.4); Lymphocytes Absolute Auto 1.6 X10*3/uL (1.2-4.9); Lymphocytes Percent Auto 26.1 % (20-40); Mean Corpuscular HGB Conc 28.7 g/dl (31.0-35.0); Mean Corpuscular Hemoglobin 19.7 pg (27.0-33.0); Mean Corpuscular Volume 68.7 fL (80-98); Mean Platelet Volume 9.9 fL (9.4-12.3); Monocytes Absolute Auto 0.3 X10*3/uL (0.1-1.2); Monocytes Percent Auto 5.6 % (2-11); Neutrophils Absolute Auto 3.9 X10*3/uL (2.0-8.3); Neutrophils Percent Auto 64.9 % (45-73); Platelet Count 506 X10*3/uL (160-400); Red Blood Count 4.67 X10*6/uL (4.20-5.50); Red Cell Distribution Width 28.5 % (11.0-16.0); White Blood Count 5.9 X10*3/uL (4.8-10.8)
[2021-01-16 16:20] LABS: Ferritin 16 ng/mL (10-250)
== END 2021-01-16 15:05 | disposition home or self-care (01) ==
LOC: HO.LAB 15:04
PROVIDERS: PCP Internal Medicine; Visit Provider Internal Medicine
DX: Z00.00 Encounter for general adult medical examination without abnormal findings (principal); D64.9 Anemia, unspecified
CPT/HCPCS: 36415; 82728; 85025

== ENCOUNTER 2021-01-24 08:39 | Outpatient (REF) | payer OTHER, SELFPAY ==
[2021-01-24 14:21] LABS: CT PCR NOT DETECTED (Not Detect.); NG PCR NOT DETECTED (Not Detect.)
[2021-01-25 09:39] LABS: BV Int Neg Control Negative (Negative); BV Int Pos Control Positive (Positive)
[2021-01-27 01:26] LABS: HPV mRNA E6/E7 rflx Not Detected (Not Detected)
== END 2021-01-24 08:40 | disposition home or self-care (01) ==
LOC: HO.LAB 08:39
PROVIDERS: PCP Internal Medicine; Visit Provider Advanced Practice Midwife
DX: Z01.419 Encounter for gynecological examination (general) (routine) without abnormal findings (principal); Z12.4 Encounter for screening for malignant neoplasm of cervix; Z11.51 Encounter for screening for human papillomavirus (HPV); D64.9 Anemia, unspecified; Z20.2 Contact with and (suspected) exposure to infections with a predominantly sexual mode of transmission; Z87.42 Personal history of other diseases of the female genital tract
CPT/HCPCS: 36415; 87480; 87491; 87510; 87591; 87624; 87660; 88141; 88142

== ENCOUNTER 2021-01-30 13:54 | Outpatient (REF) | payer OTHER, SELFPAY ==
--- NOTE | ~2021-01-30 | US_ITS ---
EXAMINATION: ULTRASOUND OF THE PELVIS CLINICAL INFORMATION: Irregular bleeding. COMPARISON: None. TECHNIQUE: Transabdominal and transvaginal pelvic ultrasound. A transvaginal study was performed in addition to the transabdominal study which did not yield an adequate examination of the uterus and ovaries due to superimposed distended gas-filled loops of bowel. FINDINGS: The uterus is normal in size and appearance, measuring 10.7 x 5.8 x 6.4 cm longitudinally, anteroposteriorly and transversely. The endometrial stripe thickness is enlarged, measuring 2.1 cm in thickness. No focal myometrial mass is seen. The ovaries bilaterally are visualized and appear normal, with the right ovary measuring 3.3 x 1.8 x 2.5 cm and the left ovary measuring 3.5 x 2.5 x 3.2 cm. Dominant left ovarian follicle measures 1.9 cm. No adnexal mass or free fluid collection seen. US/US transvaginal IMPRESSION: Abnormal thickening of the endometrium. No uterine or adnexal mass..
--- NOTE | ~2021-01-30 | US_ITS ---
EXAMINATION: ULTRASOUND OF THE PELVIS CLINICAL INFORMATION: Irregular bleeding. COMPARISON: None. TECHNIQUE: Transabdominal and transvaginal pelvic ultrasound. A transvaginal study was performed in addition to the transabdominal study which did not yield an adequate examination of the uterus and ovaries due to superimposed distended gas-filled loops of bowel. FINDINGS: The uterus is normal in size and appearance, measuring 10.7 x 5.8 x 6.4 cm longitudinally, anteroposteriorly and transversely. The endometrial stripe thickness is enlarged, measuring 2.1 cm in thickness. No focal myometrial mass is seen. The ovaries bilaterally are visualized and appear normal, with the right ovary measuring 3.3 x 1.8 x 2.5 cm and the left ovary measuring 3.5 x 2.5 x 3.2 cm. Dominant left ovarian follicle measures 1.9 cm. No adnexal mass or free fluid collection seen. US/US pelvic complete IMPRESSION: Abnormal thickening of the endometrium. No uterine or adnexal mass..
== END 2021-01-30 13:55 | disposition home or self-care (01) ==
LOC: HO.US 13:54
PROVIDERS: PCP Internal Medicine; Visit Provider Advanced Practice Midwife
DX: Z01.419 Encounter for gynecological examination (general) (routine) without abnormal findings (principal); Z87.42 Personal history of other diseases of the female genital tract
CPT/HCPCS: 76830; 76856

== ENCOUNTER 2021-02-09 20:05 | Emergency (ER) | payer OTHER, SELFPAY ==
--- NOTE | ~2021-02-09 | CT_ITS ---
EXAMINATION: CT HEAD WITHOUT CONTRAST CLINICAL INFORMATION: Right-sided headache. COMPARISON: None. TECHNIQUE: Contiguous helical images of the brain were obtained without IV contrast. Multiplanar reconstructions were performed. DLP: 600 mGy-cm. FINDINGS: There are no pathologic extra-axial fluid collections. The lateral, third, fourth ventricles are nondilated and concordant with the appearance of the sulci. There is no evidence for acute intraparenchymal hemorrhage or infarct. There is neither mass nor mass effect. There is no shift of midline structures. The paranasal sinuses and mastoid air cells are clear. There are no osseous lesions. CT/CT head/brain wo con IMPRESSION: No evidence for acute intracranial injury. Automated exposure control (Care Dose) Adjustment of the mA and/or kv according to patient size (this includes techniques or standardized protocols for targeted exams where dose is matched to indication / reason for exam; i.e. extremities or head).
[2021-02-09 20:35] VITALS: BP 167/89; PULSE 83; RESP 18; TEMP 37.1; O2SAT 99; BMI 35.9
[2021-02-09 21:58] LABS: Basophils Percent Auto 0.4 % (0-2); Eosinophils Absolute Auto 0.2 X10*3/uL (0.0-0.4); Eosinophils Percent Auto 1.9 % (0-4); Hematocrit 32.4 % (37-47); Hemoglobin 9.4 g/dl (12.0-16.0); Imm Gran Abs Auto 0.03 X10*3/uL (0.00-0.03); Imm Gran Pct Auto 0.3 % (0.0-0.4); Lymphocytes Absolute Auto 2.3 X10*3/uL (1.2-4.9); MANUAL DIFF FLAG NO; Mean Corpuscular Hemoglobin 20.8 pg (27.0-33.0); Mean Corpuscular Volume 71.5 fL (80-98); Mean Platelet Volume 9.3 fL (9.4-12.3); Monocytes Percent Auto 9.5 % (2-11); Neutrophils Absolute Auto 6.5 X10*3/uL (2.0-8.3); Neutrophils Percent Auto 64.9 % (45-73); Platelet Count 565 X10*3/uL (160-400); Red Blood Count 4.53 X10*6/uL (4.20-5.50); Red Cell Distribution Width 29.2 % (11.0-16.0)
[2021-02-09 22:33] LABS: Alanine Aminotransferase 13 U/L (0-31); Albumin Level 3.8 g/dL (3.5-5.0); Alkaline Phosphatase 61 U/L (39-117); Anion Gap 13 (12-20); Aspartate Amino Transferase 11 U/L (5-31); Bilirubin Total 0.2 mg/dL (0.0-1.0); Blood Urea Nitrogen 9 mg/dL (9-16); Calcium 8.7 mg/dL (8.4-10.2); Carbon Dioxide 21 mmol/L (22-29); Chloride 108 mmol/L (96-108); Creatinine Clr Calc Pharmacy 125.3; Estimated Glomerular Filt Rate > 60; Glucose Random 126 mg/dL (60-115); Potassium 4.1 mmol/L (3.3-5.1); Sodium 138 mmol/L (135-145); Total Protein 7.1 g/dL (6.5-8.0)
[2021-02-09 22:39] VITALS: BP 139/80; PULSE 75; RESP 16; O2SAT 99
--- NOTE | 2021-02-09 23:32 | ED_ITS ---
HPI - General Adult General Chief complaint: General Medical Stated complaint: head numbness Time Seen by Provider: 02/09/21 23:26 Source: patient Mode of arrival: ambulatory Limitations: no limitations History of Present Illness HPI narrative: Patient presents to slight right-sided headache and tingling/numbess on the right side of head. Patient states it has been occurring for the past 2 days. Patient denies any slurred speech, loss of vision, paralysis of extremities, , nausea, vomiting, fever, chills, or any recent head trauma. Patient states no chest pain or shortness of breath. Related Data Previous Rx's Medication Instructions Recorded ferrous sulfate 324 mg PO BID #60 tab 01/12/21 omeprazole 20 mg PO DAILY #20 tab 01/12/21 bismuth subsalicylate 262 mg 2 tab PO QID 14 Days #112 tab 01/18/21 chewable tablet metronidazole 500 mg tablet 500 mg PO TID 14 Days #42 tab 01/18/21 pantoprazole 40 mg tablet,delayed 40 mg PO BID 14 Days #28 tab 01/18/21 release tetracycline 500 mg capsule 500 mg PO Q6H 14 Days #56 cap 01/18/21 bmtqbtagua-aqileumdjgitn-zrqf 1 cap PO Q6H PRN #28 cap 02/10/21 [Fioricet] Allergies Allergy/AdvReac Type Severity Reaction Status Date / Time No Known Allergies Allergy Verified 01/24/21 08:52 Review of Systems Review of Systems: Yes all other systems are reviewed and are negative Constitutional: Constitutional: Reports as per HPI, Reports no additional constitutional complaints and Reports headache(s) Eyes: Eyes: Reports as per HPI and Reports no additional eye complaints ENT: Reports system reviewed and no additional complaints, except as documented, Reports as per HPI and Reports headache(s) Cardiovascular: Cardiovascular: Reports as per HPI and Reports no additional cardiovascular complaints Respiratory: Respiratory: Reports as per HPI and Reports no additional respiratory complaints Gastrointestinal: Gastrointestinal: Reports as per HPI and Reports no additional gastrointestinal complaints Genitourinary: Genitourinary: Reports no additional female genitourinary complaints and Reports as per HPI Musculoskeletal: Musculoskeletal: Reports no additional musculoskeletal complaints, Reports as per HPI and Reports numbness (Right side of forehead) Integumentary/Breasts: Skin/Breast: Reports system reviewed and no additional complaints, except as docu and Reports as per HPI Neurologic: Reports system reviewed and no additional complaints, except as documented, Reports as per HPI, Reports headache(s) and Reports numbness (Right side of forehead) Psychiatric: Psychiatric: Reports no additional psychiatric complaints and Reports as per HPI [facility] Past Medical History Medical History (Updated 02/10/21 @ 01:43 by SHAKIRA Gibson) Acute GI bleeding Anemia Back pain History of kidney stones Iron deficiency Thrombocytosis Surgical History History of History of lithotripsy S/P cystoscopy with ureteral stent placement S/P tubal ligation Family History Family History Mother Diabetes High blood pressure High cholesterol Father High blood pressure Social History Social History (Updated 01/24/21 @ 08:55 by Fredy Driscoll CMA) Household Members: Family Housing: House Alcohol intake: never Smoking Status: Never smoker Use of substances other than those prescribed or required for medical reasons: No Advance Directives: No Advance Directives Information Provided: No service: No Gender identity: female Physical Exam Vital Signs: Vital Signs: Last Vital Signs Temp 98.7 F 02/09/21 20:35 Pulse 69 02/10/21 01:09 Resp 16 02/10/21 01:09 BP 134/68 02/10/21 01:09 Pulse Ox 99 02/10/21 01:09 Body Mass Index 35.9 Const: General: cooperative, healthy appearing, comfortable, no acute distress, well developed, alert, awake and Physically active Orientation/consciousness: patient oriented x3 HENMT: Head: Yes normal to inspection, Yes No palpable skull fracture present, Yes normocephalic, Yes atraumatic, No abrasion, No Acrocyanosis present, No Andrews's sign, No contusion, No cranial bruits, No hematoma, No laceration, No occipital foramen tenderness, No palpable skull fracture, No raccoon eyes, No scalp lesion, No scalp tenderness, No Temporal artery tenderness present and No periorbital ecchymosis Eyes: General: appearance normal, both eyes and all related structures Neck: Neck: Yes normal visual inspection, Yes full ROM, Yes no lymphadenopathy, Yes no meningeal signs, Yes trachea midline, Yes supple and No tender Chest: Chest palpation & inspection: normal inspection of the chest and normal palpation of entire chest wall Resp: Effort & Inspection: normal respiratory effort and able to speak in complete sentences Auscultation: clear to auscultation bilaterally Cardio: Jugular venous distension: no JVD Heart sounds: S1 normal heart sound present and S2 normal heart sound present GI: Inspection: Yes normal to inspection and No abdominal wall ecchymosis Palpation (GI): Soft to palpation, not firm, nontender, no guarding and not rigid : General: No CVA tenderness and Yes no CVA tenderness Back/Spine/Pelvis: Back: no CVA tenderness, No CVA tenderness and No back tenderness Skin: General skin exam: no rashes or lesions noted and elasticity normal Neuro: Other: Negative facial droop. Negative slurred speech. Negative pronator drift. All extremities equal strength and 5+. Gobzaa-wh-vrpc rapid hand movement intact. Negative Romberg General: patient oriented x3, no meningeal signs and CN's II-XI intact bilaterally Cranial nerves: Yes CN's II-XII intact bilaterally Extrem: General: Yes normal to inspection and Yes full ROM Psych: Appearance: grossly normal, well kempt and not disheveled Course Course Course Narrative: History physical exam indicates tension headache versus migraine. Very unlikely patient having stroke. We will do basic labs. Was sent patient's head CT to rule out any bleed although very unlikely. not suspecting meningitis Reevaluation(s) Reevaluation #1: Patient labs are baseline. Patient sent for head CT scan which came back negative for bleed. Patient given Fioricet. Diagnosis migraine vs tension headache. Not suspecting temporal arthritis. Not suspecting atypical PR. Patient is not having any nausea, chest pain, shortness of breath, dizziness, vomiting, or epigastric pain Medical Decision Making MDM Narrative Medical decision making narrative: Migraine tension headache Lab Data Result diagrams: 02/09/21 21:50 02/09/21 21:50 Labs: Lab Results 02/09/21 02/09/21 Range/Units 21:50 21:50 WBC 10.0 (4.8-10.8) X10*3/uL RBC 4.53 (4.20-5.50) X10*6/uL Hgb 9.4 L (12.0-16.0) g/dl Hct 32.4 L (37-47) % MCV 71.5 L (80-98) fL MCH 20.8 L (27.0-33.0) pg MCHC 29.0 L (31.0-35.0) g/dl RDW 29.2 H (11.0-16.0) % Plt Count 565 H (160-400) X10*3/uL MPV 9.3 L (9.4-12.3) fL Immature Gran % (Auto) 0.3 (0.0-0.4) % Neut % (Auto) 64.9 (45-73) % Lymph % (Auto) 23.0 (20-40) % Ritchie % (Auto) 9.5 (2-11) % Eos % (Auto) 1.9 (0-4) % Baso % (Auto) 0.4 (0-2) % Lymph # (Auto) 2.3 (1.2-4.9) X10*3/uL Ritchie # (Auto) 1.0 (0.1-1.2) X10*3/uL Eos # (Auto) 0.2 (0.0-0.4) X10*3/uL Baso # (Auto) 0.0 (0.0-0.2) X10*3/uL Abs Immat Gran (auto) 0.03 (0.00-0.03) X10*3/uL Absolute Neuts (auto) 6.5 (2.0-8.3) X10*3/uL Absolute Nucleated RBC 0.000 (0.0-0.012) X10*3/uL Nucleated RBC % (auto) 0.0 (0.0-0.2) /100WBC Sodium 138 (135-145) mmol/L Potassium 4.1 (3.3-5.1) mmol/L Chloride 108 (96-108) mmol/L Carbon Dioxide 21 L (22-29) mmol/L Anion Gap 13 (12-20) BUN 9 (9-16) mg/dL Creatinine 0.56 (0.5-1.4) mg/dL Estim Creat Clear Calc 125.3 Estimated GFR > 60 Random Glucose 126 H D (60-115) mg/dL Calcium 8.7 D (8.4-10.2) mg/dL Magnesium 2.1 (1.6-2.6) mg/dL Total Bilirubin 0.2 (0.0-1.0) mg/dL AST 11 (5-31) U/L ALT 13 (0-31) U/L Alkaline Phosphatase 61 (39-117) U/L Total Protein 7.1 (6.5-8.0) g/dL Albumin 3.8 (3.5-5.0) g/dL Beta HCG, Quant < 2 mIU/mL Discharge Plan Discharge Clinical Impression: Migraine, Paresthesia Patient Disposition: Home, Self-Care Instructions: Migraine Headache (ED), Acute Headache (ED), Paresthesia (ED) Additional Instructions: Return to the ED for slurred speech, facial droop, paralysis of extremities, loss of vision, severe headache, nausea, vomiting, chest pain, shortness of breath, dizziness, or any other concerning symptoms. Prescriptions: New mvfdtznizt-ossepfojfsfst-hwrv [Fioricet] 50-300-40 mg capsule 1 cap PO Q6H PRN (Reason: headache) Qty: 28 RF: 0 No Action tetracycline 500 mg capsule 500 mg PO Q6H 14 Days Qty: 56 RF: 0 metronidazole 500 mg tablet 500 mg PO TID 14 Days Qty: 42 RF: 0 pantoprazole 40 mg tablet,delayed release (DR/EC) 40 mg PO BID 14 Days Qty: 28 RF: 0 bismuth subsalicylate 262 mg tablet,chewable 2 tab PO QID 14 Days Qty: 112 RF: 0 ferrous sulfate 324 mg (65 mg iron) tablet,delayed release (DR/EC) 324 mg PO BID Qty: 60 RF: 0 omeprazole 20 mg tablet,delayed release (DR/EC) 20 mg PO DAILY Qty: 20 RF: 0 Referrals: Ellis Diego MD [Primary Care Provider] - 2 days (Labs came back at baseline. Head CT scan negative for mass or stroke. Electrolytes are normal. Hemoglobin/hematocrit at baseline.) Discharge Date/Time: 02/10/21 02:00 Print Language: Slovenian
[2021-02-09 23:56] LABS: HCG Quantitative < 2 mIU/mL
[2021-02-10 01:05] LABS: Magnesium 2.1 mg/dL (1.6-2.6)
[2021-02-10 01:09] VITALS: BP 134/68; PULSE 69; RESP 16; O2SAT 99
[2021-02-10] MEDS: Butalb/Acetamin/Caff 50/325/40 TABLET 1 TAB PO (01:52)
--- NOTE | 2021-02-10 01:56 | PC.NURSE ---
Pt medicated per MAR, awaiting discharge.
== END 2021-02-10 02:00 | disposition home or self-care (01) ==
PROVIDERS: Physician Assistant; Emergency Provider Internal Medicine; PCP Internal Medicine
DX: G43.909 Migraine, unspecified, not intractable, without status migrainosus (principal); R20.2 Paresthesia of skin
CPT/HCPCS: 36415; 70450; 80053; 83735; 84702; 85025; 99284

== ENCOUNTER → 2021-02-14 14:48 | Outpatient (BNVA) | payer OTHER, SELFPAY | PROVIDERS: Visit Provider Advanced Practice Midwife ==

== ENCOUNTER 2021-02-22 13:52 | Outpatient (REF) | payer OTHER, SELFPAY ==
--- NOTE | ~2021-02-22 | US_ITS ---
EXAMINATION: US PELVIS TRANSVAGINAL CLINICAL INFORMATION: Abnormal thickening of the endometrium seen on previous ultrasound study of 01/30/2021. COMPARISON: 01/30/2021 TECHNIQUE: Transcutaneous and transvaginal pelvic ultrasound. Transvaginal scanning was performed after voiding to better evaluate the endometrium and adnexa. FINDINGS: The uterus measures 11.7 x 5.3 x 5.8 cm. The uterus is anteverted. No suspicious abnormalities region of the cervix. Nabothian cysts are present. The uterine contour is smooth. The endometrium measures 2.0 cm. No focal abnormalities within the myometrium. The right ovary measures approximately 3.6 x 2.3 x 1.7 cm. The calculated right ovarian volume is approximately 7.4 mL. No suspicious right adnexal findings identified. Normal vascular flow present. The left ovary measures 3.1 x 2.3 x 1.8 cm. The calculated left ovarian volume is approximately 6.7 mL. No abnormal left adnexal findings. Small calcification present. There is a small amount of free pelvic fluid. US/US pelvic and transvaginal IMPRESSION: Abnormally thickened endometrium without significant change from study of 12/30/2020.
== END 2021-02-22 13:53 | disposition home or self-care (01) ==
LOC: HO.US 13:52
PROVIDERS: Visit Provider Advanced Practice Midwife
DX: R93.89 Abnormal findings on diagnostic imaging of other specified body structures (principal); Z87.42 Personal history of other diseases of the female genital tract
CPT/HCPCS: 76830; 76856

== ENCOUNTER → 2021-02-28 10:41 | Outpatient (BNVA) | payer OTHER, SELFPAY | PROVIDERS: Referring Provider Internal Medicine; Visit Provider Internal Medicine Gastroenterology ==

== ENCOUNTER 2021-02-28 11:50 | Outpatient (REF) | payer OTHER, SELFPAY ==
[2021-03-02 14:52] LABS: H Pylori Breath Test NOT DETECTED (NOT DETECTED)
== END 2021-02-28 11:51 | disposition home or self-care (01) ==
LOC: HO.LNP 11:50
PROVIDERS: Visit Provider Physician Assistant
DX: A04.8 Other specified bacterial intestinal infections (principal); K21.9 Gastro-esophageal reflux disease without esophagitis
CPT/HCPCS: 83013

== ENCOUNTER → 2021-03-01 12:54 | Outpatient (BNVA) | payer OTHER, SELFPAY | PROVIDERS: Visit Provider Advanced Practice Midwife ==

== ENCOUNTER 2021-03-13 10:59 | Outpatient (REF) | payer OTHER, SELFPAY | END 2021-03-13 11:00 | disposition home or self-care (01) | LOC: HO.LAB 10:59 | PROVIDERS: PCP Internal Medicine; Visit Provider Advanced Practice Midwife | DX: R93.89 Abnormal findings on diagnostic imaging of other specified body structures (principal); N93.9 Abnormal uterine and vaginal bleeding, unspecified; Z87.42 Personal history of other diseases of the female genital tract | CPT/HCPCS: 58100; 81025; 88305; 88341; 88342; 88360; 99212 ==

== ENCOUNTER → 2021-03-17 13:24 | Outpatient (BNVA) | payer OTHER, SELFPAY | PROVIDERS: Visit Provider Obstetrics & Gynecology | DX: C54.1 Malignant neoplasm of endometrium (principal) | CPT/HCPCS: 99212 ==

== ENCOUNTER 2021-03-24 14:10 | Outpatient (REF) | payer OTHER, SELFPAY ==
--- NOTE | ~2021-03-24 | XR_ITS ---
EXAMINATION: XR CHEST CLINICAL INFORMATION: Malignant neoplasm of endometrium. COMPARISON: None TECHNIQUE: Frontal view of the chest was obtained. FINDINGS: No significant abnormality is noted involving the heart, lungs, mediastinum, bony thorax or soft tissues. There is a very mild upper thoracic dextroscoliosis. XR/XR chest 1V IMPRESSION: Unremarkable examination.
[2021-03-25 09:25] LABS: CA-125 11 U/mL (<35)
== END 2021-03-24 14:11 | disposition home or self-care (01) ==
LOC: HO.LAB 14:10
PROVIDERS: PCP Internal Medicine; Visit Provider Obstetrics & Gynecology
DX: C54.1 Malignant neoplasm of endometrium (principal)
CPT/HCPCS: 36415; 71045; 86304

== ENCOUNTER 2021-04-03 13:18 | Outpatient (REF) | payer OTHER, SELFPAY ==
[2021-04-03 14:57] LABS: Blood Urea Nitrogen 11 mg/dL (9-16); Estimated Glomerular Filt Rate > 60
== END 2021-04-03 13:19 | disposition home or self-care (01) ==
LOC: HO.LAB 13:18
PROVIDERS: PCP Internal Medicine; Visit Provider Obstetrics & Gynecology
DX: C54.1 Malignant neoplasm of endometrium (principal)
CPT/HCPCS: 36415; 82565; 84520

== ENCOUNTER 2021-04-06 09:13 | Outpatient (REF) | payer OTHER, SELFPAY | END 2021-04-06 09:14 | disposition home or self-care (01) | LOC: HO.CT 09:13 | PROVIDERS: PCP Internal Medicine; Visit Provider Obstetrics & Gynecology | DX: Z13.89 Encounter for screening for other disorder (principal) ==

== ENCOUNTER 2021-07-18 13:11 | Outpatient (REF) | payer OTHER, SELFPAY ==
[2021-07-18 13:58] LABS: MANUAL DIFF FLAG NO
[2021-07-18 14:04] LABS: Basophils Percent Auto 0.4 % (0-2); Eosinophils Absolute Auto 0.1 X10*3/uL (0.0-0.4); Eosinophils Percent Auto 1.2 % (0-4); Hematocrit 34.1 % (37-47); Hemoglobin 10.3 g/dl (12.0-16.0); Imm Gran Abs Auto 0.02 X10*3/uL (0.00-0.03); Imm Gran Pct Auto 0.2 % (0.0-0.4); Lymphocytes Percent Auto 25.5 % (20-40); Mean Corpuscular HGB Conc 30.2 g/dl (31.0-35.0); Mean Corpuscular Hemoglobin 22.9 pg (27.0-33.0); Mean Corpuscular Volume 75.9 fL (80-98); Monocytes Absolute Auto 0.6 X10*3/uL (0.1-1.2); Monocytes Percent Auto 7.5 % (2-11); Neutrophils Absolute Auto 5.2 X10*3/uL (2.0-8.3); Neutrophils Percent Auto 65.2 % (45-73); Platelet Count 509 X10*3/uL (160-400); Red Blood Count 4.49 X10*6/uL (4.20-5.50); Red Cell Distribution Width 19.9 % (11.0-16.0)
[2021-07-18 14:34] LABS: Iron 48 mcg/dL (30-160); Percent Iron Saturation 10 % (15-50); Total Iron Binding Capacity 501 mcg/dL (228-428); Unsaturated Iron Binding 453 ug/dL
== END 2021-07-18 13:12 | disposition home or self-care (01) ==
LOC: HO.LAB 13:11
PROVIDERS: PCP Internal Medicine; Visit Provider Internal Medicine
DX: Z00.00 Encounter for general adult medical examination without abnormal findings (principal); C64.1 Malignant neoplasm of right kidney, except renal pelvis
CPT/HCPCS: 36415; 83540; 85025

== ENCOUNTER 2021-10-02 09:24 | Emergency (ER) | payer OTHER, SELFPAY ==
[2021-10-02 10:51] VITALS: BP 147/80; PULSE 64; RESP 18; TEMP 36.1; O2SAT 100; BMI 37.5
[2021-10-02] MEDS: Ketorolac Tromethamine 30 MG/ML VIAL IM (11:09)
--- NOTE | 2021-10-02 11:23 | ED.BACK ---
HPI - Back Pain/Injury General Chief Complaint: Back Pain/Injury Stated Complaint: Back pain Time Seen by Provider: 10/02/21 10:48 Source: patient Mode of arrival: ambulatory History of Present Illness HPI Narrative: 41-year-old female with a past medical history is abnormal uterine bleeding, anemia, back pain, , obesity, presenting to the ED complaining of acute on chronic thoracic/low back pain x years worsening over the past few months. Reports pain radiates up back and down legs. Denies known injury/trauma or fall. Denies numbness, tingling, weakness, urinary incontinence/retention, hematuria/dysuria MD elicited complaint: back pain Onset (ago): year(s) Timing: constant Severity: moderate Similar Symptoms Previously: Yes Associated symptoms: denies other symptoms Related Data Previous Rx's Medication Instructions Recorded ferrous sulfate 324 mg (65 mg 324 mg PO BID #60 tab 01/12/21 iron) tablet,delayed release gomabvsxwj-mwhpzyjcgtoxz-srpgndrr 1 cap PO Q6H PRN #28 cap 02/10/21 50 mg-300 mg-40 mg capsule (Fioricet) acetaminophen 500 mg tablet 500 mg PO Q6H PRN #20 tab 10/02/21 (Tylenol Extra Strength) cyclobenzaprine 5 mg tablet 5 mg PO Q8H PRN 5 Days #14 tab 10/02/21 lidocaine 5 % topical patch 1 patch TOPICAL DAILY PRN #30 ea 10/02/21 (Lidoderm) MDD remove after 12 hours naproxen 500 mg tablet 500 mg PO BID PRN 10 Days #20 tab 10/02/21 Allergies Allergy/AdvReac Type Severity Reaction Status Date / Time No Known Allergies Allergy Verified 07/26/21 11:25 Review of Systems Review of Systems: Constitutional: No Fever, No Chills ENT/Mouth: No Ear Pain, No sore throat, No Rhinorrhea Cardiovascular: No Chest Pain, No SOB Respiratory: No Cough Gastrointestinal: No Nausea, No Vomiting, No Abdominal pain Genitourinary: No Dysuria, No Urinary Frequency, No Hematuria, No Urinary Incontinence/retention Musculoskeletal: + joint pain, No Myalgias, No Joint Swelling Skin: No Skin Lesions, No rash Neuro: No Weakness, No Numbness, No Paresthesias Yes all other systems are reviewed and are negative Neurologic: Denies Sensory deficit (Neuro) [facility] Past Medical History Attestation statement: The following information was validated with the patient. Medical History Abnormal uterine bleeding (AUB) Acid reflux Acute GI bleeding Anemia Back pain Endometrial adenocarcinoma History of kidney stones Iron deficiency Obesity Thrombocytosis Surgical History History of History of lithotripsy S/P cystoscopy with ureteral stent placement S/P tubal ligation Family History Family History Mother Diabetes High blood pressure High cholesterol Father High blood pressure Social History Social History Household Members: Family Housing: House Do you presently have visiting nurse or other home services: No Alcohol intake: never Patient Tobacco Use Status: Never used Tobacco e-Cigarette/Vaping Use: Never Used Second Hand Smoke Exposure: No Advance Directives: No Advance Directives Information Provided: No Patient : No service: No Current occupational status: unemployed Gender identity: Female Physical Exam Vital Signs: Vital Signs: Last Vital Signs Temp 97.0 F 10/02/21 10:51 Pulse 64 10/02/21 10:51 Resp 18 10/02/21 10:51 BP 147/80 H 10/02/21 10:51 Pulse Ox 100 10/02/21 10:51 BMI result Body Mass Index 37.5 Const: General: cooperative, healthy appearing and no acute distress Orientation/consciousness: patient oriented x3 Limitations: no limitations HENMT: Head: Yes normal to inspection, Yes normocephalic and Yes atraumatic Ears: hearing grossly normal bilaterally General nose exam: Normal external nose present Face and sinus: Yes normal facial exam Eyes: General: appearance normal, both eyes and all related structures EOM: EOMs intact bilaterally Neck: Neck: Yes normal visual inspection and Yes no meningeal signs Resp: Effort & Inspection: normal respiratory effort and no respiratory distress Cardio: Rate: regular rate Heart sounds: S1 normal heart sound present and S2 normal heart sound present GI: Inspection: Yes normal to inspection Palpation (GI): Soft to palpation, nontender, no guarding and not rigid : General: Yes no CVA tenderness Back/Spine/Pelvis: Other: No midline thoracic/lumbar spinous tenderness/step-off or deformity. Bilateral thoracic MSK tenderness to palpation. Back: no CVA tenderness Skin: Rashes: no rashes Wounds: no wounds Neuro: Other: No saddle anesthesia. Ambulating with steady gait. Strength intact throughout General: patient oriented x3, gait normal, tone normal, moves all extremities, no meningeal signs and no focal motor deficits Gait exam (Neuro): Normal gait present Motor exam (neuro): 5/5 motor strength present throughout Sensory Exam: No Sensory deficit (Neuro) Extrem: General: Yes normal to inspection MDM - Back Pain/Injury MDM Narrative Medical decision making narrative: 41-year-old female with a past medical history is abnormal uterine bleeding, anemia, back pain, , obesity, presenting to the ED complaining of acute on chronic thoracic/low back pain x years worsening over the past few months. On exam vital signs stable, NAD/nontoxic, physical exam as above, no midline spinous tenderness, no red flag symptoms. Likely MSK pain/muscle spasming. Low concern for cauda equina/cord compression or fracture Medical Records Attestation: I reviewed the patient's medical records. Lab Data Attestation: I reviewed the patient's lab results. Discharge Plan Discharge Clinical Impression: Thoracic back pain Patient Disposition: Home, Self-Care Instructions: Back Pain (ED) Additional Instructions: Your pain is likely musculoskeletal Flexeril is a muscle relaxer, take at night as it makes you drowsy, do not drive, drink alcohol, or operate machinery while taking it Naproxen as an anti-inflammatory / pain medication, take with food Lidoderm patches are numbing patches, apply to painful area In addition take Tylenol at home If symptoms persist or worsen, pain becomes unbearable, you developed urinary retention or incontinence, or weakness return to the ED Prescriptions: New acetaminophen [Tylenol Extra Strength] 500 mg tablet 500 mg PO Q6H PRN (Reason: pain or fever) Qty: 20 RF: 0 lidocaine [Lidoderm] 5 % adhesive patch,medicated 1 patch topical DAILY MDD remove after 12 hours PRN (Reason: pain) Qty: 30 RF: 0 naproxen 500 mg tablet 500 mg PO BID PRN (Reason: pain) 10 Days Qty: 20 RF: 0 cyclobenzaprine 5 mg tablet 5 mg PO Q8H PRN (Reason: pain (scale score 7-10)) 5 Days Qty: 14 RF: 0 No Action ferrous sulfate 324 mg (65 mg iron) tablet,delayed release (DR/EC) 324 mg PO BID Qty: 60 RF: 0 yapepjzkru-ljemeimyfpzpk-vtuz [Fioricet] 50-300-40 mg capsule 1 cap PO Q6H PRN (Reason: headache) Qty: 28 RF: 0 Referrals: Ellis Diego MD [Primary Care Provider] - 2 days
[2021-10-02 11:33] VITALS: RESP 17
== END 2021-10-02 11:34 | disposition home or self-care (01) ==
PROVIDERS: Emergency Provider Emergency Medicine; PCP Internal Medicine
DX: M54.6 Pain in thoracic spine (principal)
CPT/HCPCS: 96372; 99283; 99284; J1885

== ENCOUNTER 2021-10-12 13:15 | Emergency (ER) | payer OTHER, SELFPAY ==
--- NOTE | ~2021-10-12 | XR_ITS ---
EXAMINATION: XR CHEST CLINICAL INFORMATION: SOB COMPARISON: None TECHNIQUE: 2 views of the chest were obtained. FINDINGS: No significant abnormality is noted involving the heart, lungs, mediastinum, bony thorax or soft tissues. XR/XR chest 2V IMPRESSION: Unremarkable chest examination.
[2021-10-12 13:41] VITALS: BP 144/89; PULSE 82; RESP 18; TEMP 36.8; O2SAT 98; BMI 37.8
[2021-10-12 16:17] LABS: COVID-19 Test Positive (Negative); IDNOW Serial# 9DD0AD1C
--- NOTE | 2021-10-12 16:37 | ED.URI ---
HPI - URI/Sore Throat General Chief Complaint: Upper Respiratory Symptoms Stated Complaint: chest tightness fever chills headache Time Seen by Provider: 10/12/21 16:33 Source: patient Mode of arrival: ambulatory Limitations: no limitations History of Present Illness MD elicited complaint: fever, cough, sore throat and other Onset (ago): day(s) (2) Consistency: constant and progressively worsening Severity: mild Able to tolerate fluids by mouth: Yes Exacerbating factors: swallowing and deep breaths Relieving factors: nothing Context: other(s) with similar symptoms (Son started having a sore throat today he works at [employer] and she was recently at [employer] although no sick contacts that she is aware of) Associated symptoms: fever, chills, myalgias, headache, sore throat, cough and shortness of breath Treatments prior to arrival: none Related Data Previous Rx's Medication Instructions Recorded ferrous sulfate 324 mg (65 mg 324 mg PO BID #60 tab 01/12/21 iron) tablet,delayed release [id number]-bkmcfezvejpbd-[id number] 1 cap PO Q6H PRN #28 cap 02/10/21 50 mg-300 mg-40 mg capsule (Fioricet) acetaminophen 500 mg tablet 500 mg PO Q6H PRN #20 tab 10/02/21 (Tylenol Extra Strength) cyclobenzaprine 5 mg tablet 5 mg PO Q8H PRN 5 Days #14 tab 10/02/21 lidocaine 5 % topical patch 1 patch TOPICAL DAILY PRN #30 ea 10/02/21 (Lidoderm) MDD remove after 12 hours naproxen 500 mg tablet 500 mg PO BID PRN 10 Days #20 tab 10/02/21 azithromycin 250 mg tablet See Rx Instructions .ROUTE 10/12/21 .COMPLEX #6 tab codeine 10 mg-guaifenesin 100 mg/5 5 ml PO Q6H PRN #120 ml 10/12/21 mL oral liquid (Guaifenesin AC) cyclobenzaprine 10 mg tablet 10 mg PO Q8H PRN #14 tab 10/12/21 Allergies Allergy/AdvReac Type Severity Reaction Status Date / Time No Known Allergies Allergy Verified 07/26/21 11:25 Review of Systems Review of Systems: Constitutional : No Weight loss, + Fever, + Chills, No Night Sweats, + Fatigue, + Malaise ENT/Mouth : No Hearing loss, No Ear Pain, No Nasal Congestion, No Sinus Pain, No Hoarseness, + sore throat, No Rhinorrhea, No Swallowing Difficulty Eyes: No Eye Pain, No Swelling, No Redness, No Foreign Body, No Discharge, No Vision Changes Cardiovascular : No Chest Pain, + SOB, No Dyspnea on Exertion, No Orthopnea, No Edema, No Palpitations Respiratory : + Cough, No Sputum, No Wheezing, No Smoke Exposure, + Dyspnea Gastrointestinal : No Nausea, No Vomiting, No Diarrhea, No Constipation, No abdominal Pain, No Hematochezia, No Melena Genitourinary : no irregular bleeding, No Dysuria, No Urinary Frequency, No Hematuria, No Urinary Incontinence, No Urgency, No Flank Pain, No Urinary Flow Changes, No Hesitancy Musculoskeletal : No joint pain, + Myalgias, No Joint Swelling Skin : No Skin Lesions, No rash Neuro : No Weakness, No Numbness, No Paresthesias, No Loss of Consciousness, No Dizziness, No Headache Psych : No Anxiety/Panic, No Depression, No SI/HI/AH/VH, No Social Issues, Heme/Lymph: No Bruising, No Bleeding,No Lymphadenopathy Endocrine : No Polyuria, No Polydipsia, No Temperature Intolerance Yes all other systems are reviewed and are negative [facility] Past Medical History Attestation statement: The following information was validated with the patient. Medical History Abnormal uterine bleeding (AUB) Acid reflux Acute GI bleeding Anemia Back pain Endometrial adenocarcinoma History of kidney stones Iron deficiency Obesity Thrombocytosis Surgical History History of History of lithotripsy S/P cystoscopy with ureteral stent placement S/P tubal ligation Family History Family History Mother Diabetes High blood pressure High cholesterol Father High blood pressure Social History Social History Household Members: Family Housing: House Do you presently have visiting nurse or other home services: No Alcohol intake: never Patient Tobacco Use Status: Never used Tobacco e-Cigarette/Vaping Use: Never Used Second Hand Smoke Exposure: No Advance Directives: Yes Advance Directives Information Provided: Yes Advance Directives on File: No service: No Current occupational status: unemployed Gender identity: Female Physical Exam Vital Signs: Vital Signs: Last Vital Signs Temp 98.2 F 10/12/21 13:41 Pulse 82 10/12/21 13:41 Resp 18 10/12/21 13:41 BP 144/89 H 10/12/21 13:41 Pulse Ox 98 10/12/21 13:41 BMI result Body Mass Index 37.8 vital signs have been reviewed as normal and appeared to be correct. Blood pressure normal. Heart rate normal. Respiration rate normal. Temperature normal. Oxygen saturation normal. Appearance: Alert. Oriented X3. No acute distress. Head: Normal external exam. Normocephalic. Atraumatic. No Andrews signs noted. No raccoon eyes noted Eyes: PERRLA. EOMI. Conjunctiva and sclera normal. Eyelids normal. ENT: EAC normal. TM's Normal. Pharynx normal. Uvula midline. Moist mucous membranes. No trismus noted. No drooling noted. No muffled voice noted. Neck: Normal inspection. Neck supple. FROM. No adenopathy. Thyroid Normal. No meningeal signs. No neck mass noted. CVS: Normal heart rate and rhythm. Heart sound normal. Pulses normal throughout. No murmurs/rales/gallops. Respiratory: No respiratory distress. Painless inspiration. Breath sounds normal. No wheezes/rales/rhonchi noted. Chest nontender. No accessory muscle usage noted or decreased air movement noted. Abdomen: Soft and nontender. Bowel sounds normal in all 4 quadrants. No distention noted. No organomegaly noted. No visible injury noted. Back: No CVA tenderness. Full range of motion noted. No rashes/lesion/induration/fluctuance or signs of infection noted. Skin: Skin warm and dry. Normal skin color. Normal skin turgor. No rashes/lesions/lacerations noted. Extremities: No lower extremity edema. Extremities exhibit normal range of motion. Extremities nontender. Neuro: Oriented X 3. No motor deficit. No sensory deficit. Reflexes normal. Normal steady gait. No focal neuro deficits noted. Vascular: + radial pulses/+ 2 distal pedal pulses/+2 dorsalis pedis b/l. Normal cap refill. No cyanosis noted to upper extremity nails and lower extremity toes nails. Course Course Course Narrative: 41-year-old female presenting to the ED with URI symptoms for the past 2 days worse today which includes subjective fevers, chills, myalgias, fatigue, body aches, sore throat, dry cough and intermittent shortness of breath. Reports that she is fully vaccinated. Denies recent travel. Reports that she was recently at [employer] although is not aware of any sick contacts there. Her son works at [employer] and he started having a sore throat today. She denies any other symptoms complaints or concerns. She is positive for COVID. Negative for RSV/flu. Her chest x-ray is negative. Therefore I explained to her that she needs to self isolate for at least 10 days or at least 72 hours where her symptoms have improved and to return if any new or worsening symptoms to follow-up with her primary care provider. Patient understands agrees with this plan. MDM - URI/Sore Throat Medical Records Attestation: I reviewed the patient's medical records. Lab Data Attestation: I reviewed the patient's lab results. Labs: Lab Results 10/12/21 Range/Units 15:54 COVID-19 (AUBREY) Positive A (Negative) COVID-19 Clin Com See Note Discharge Plan Discharge Clinical Impression: COVID-19 Patient Disposition: Home, Self-Care Instructions: COVID-19 (Coronavirus Disease 2019) (ED) Additional Instructions: You can call [facility] monoclonal antibody therapy clinic see if you qualify for the antibody monoclonal therapy. If not just continue to monitor oxygen levels and return if any new or worsening symptoms follow up with her primary care provider Prescriptions: New cyclobenzaprine 10 mg tablet 10 mg PO Q8H PRN (Reason: Muscle spasm) Qty: 14 RF: 0 azithromycin 250 mg tablet See Rx Instructions .ROUTE .COMPLEX Qty: 6 RF: 0 codeine-guaifenesin [Guaifenesin AC] 10-100 mg/5 mL liquid 5 ml PO Q6H PRN (Reason: cold symptoms) Qty: 120 RF: 0 No Action ferrous sulfate 324 mg (65 mg iron) tablet,delayed release (DR/EC) 324 mg PO BID Qty: 60 RF: 0 [id number]-dkmvcgzitfubp-jvxs [Fioricet] 50-300-40 mg capsule 1 cap PO Q6H PRN (Reason: headache) Qty: 28 RF: 0 acetaminophen [Tylenol Extra Strength] 500 mg tablet 500 mg PO Q6H PRN (Reason: pain or fever) Qty: 20 RF: 0 lidocaine [Lidoderm] 5 % adhesive patch,medicated 1 patch topical DAILY MDD remove after 12 hours PRN (Reason: pain) Qty: 30 RF: 0 naproxen 500 mg tablet 500 mg PO BID PRN (Reason: pain) 10 Days Qty: 20 RF: 0 cyclobenzaprine 5 mg tablet 5 mg PO Q8H PRN (Reason: pain (scale score 7-10)) 5 Days Qty: 14 RF: 0 Referrals: Ellis Diego MD [Primary Care Provider] - 2 days Stand Alone Forms: Work/School Release Print Language: Georgian
== END 2021-10-12 16:54 | disposition home or self-care (01) ==
PROVIDERS: Emergency Provider Emergency Medicine; PCP Internal Medicine
DX: U07.1 COVID-19 (principal); R50.9 Fever, unspecified
CPT/HCPCS: 36415; 71046; 87635; 99283

== ENCOUNTER 2021-12-11 15:10 | Outpatient (REF) | payer OTHER, SELFPAY ==
--- NOTE | ~2021-12-11 | MM_ITS ---
EXAMINATION: MM SCREENING DIGITAL BREAST TOMOSYNTHESIS, BILATERAL CLINICAL INFORMATION: Screening. Asymptomatic. The lifetime risk of breast cancer based on the Tyrer-Cuzick Model is 7%. COMPARISON: Mammography: 11/30/2020, 04/29/2018 (baseline) TECHNIQUE: Digital breast tomosynthesis is performed in both the craniocaudal and mediolateral oblique views along with computer-aided detection (CAD). Synthesized 2D images are generated from the tomosynthesis. FINDINGS: There are scattered areas of fibroglandular density (ACR BI-RADS breast composition Category b). There are no significant masses, abnormal calcifications, or other abnormalities. Parenchymal pattern is similar to prior studies. Fine nodularity central anterior right breast unchanged. There are 2 low right axillary tail nodes also unchanged. No developing densities. No significant changes from prior studies. MM/MM tomosynthesis screening BI IMPRESSION: No mammographic evidence of malignancy. ASSESSMENT: BI-RADS 2: Benign RECOMMENDATION: Routine annual mammography screening. This patient's information was entered into a reminder system with a target due date for their next mammogram.
== END 2021-12-11 15:11 | disposition home or self-care (01) ==
LOC: HO.MAMMO 15:10
PROVIDERS: PCP Internal Medicine; Visit Provider Internal Medicine
DX: Z12.31 Encounter for screening mammogram for malignant neoplasm of breast (principal)
CPT/HCPCS: 77063; 77067

== ENCOUNTER 2021-12-29 08:54 | Emergency (ER) | payer MEDICAID, SELFPAY ==
--- NOTE | ~2021-12-29 | US_ITS ---
EXAMINATION: US VENOUS ULTRASOUND WITH DOPPLER LOWER EXTREMITY, RIGHT CLINICAL INFORMATION: Pain COMPARISON: None TECHNIQUE: Ultrasound of the deep veins is performed from the hip to the calf with compression sonography and color and pulse Doppler assessment. Spectral analysis with color-flow imaging is performed. FINDINGS: There is normal venous compression and respiratory variation and augmented flow. The visualized common femoral vein, superficial femoral vein, profunda femoral vein, popliteal vein, and the trifurcation region shows no evidence of deep venous thrombosis. Palpable painful lump in the posterior fossa represents superficial thrombophlebitis/ thrombosed varicosity. There is no popliteal fossa cyst. US/US venous duplex LE RT IMPRESSION: No DVT demonstrated in the right lower extremity. Palpable lump in the popliteal fossa corresponds to the superficial thrombophlebitis/thrombosed varicosity.
--- NOTE | ~2021-12-29 | CT_ITS ---
EXAMINATION: CT ABDOMEN AND PELVIS WITHOUT CONTRAST CLINICAL INFORMATION: Back pain. History of cancer. Rule out mass. COMPARISON: Previous CT of the abdomen and pelvis September 2016 and pelvic ultrasound most recent January 2021 TECHNIQUE: Multidetector volumetric imaging was performed from the superior aspect of the liver through the pubic symphysis. Sagittal and coronal reformatted images were obtained on the technologist's workstation. This CT examination was performed using dose optimization techniques as appropriate, variously including the following: *Automated exposure control *Adjustment of mA and/or kV according to patient size (this includes techniques or standardized protocols for targeted exams where dose is matched to indication/reason for exam; i.e. extremities or head) *Use of iterative reconstruction technique DLP: 733 mGy-cm FINDINGS: LUNG BASES: The visualized lung bases are unremarkable. LIVER, GALLBLADDER, AND BILIARY TREE: The liver is normal in size, shape, and attenuation. No focal hepatic lesion or biliary ductal dilatation is present. The gallbladder is unremarkable with no evidence of radiopaque gallstones, gallbladder wall thickening, or obvious pericholecystic inflammatory changes. PANCREAS: Unremarkable. SPLEEN: Unremarkable. ADRENAL GLANDS: Unremarkable. KIDNEYS AND URETERS: There are small bilateral renal stones. Largest stone measures 3 mm in the lower pole of the left kidney. No hydronephrosis, ureteral dilatation or ureteral stone. BLADDER: Unremarkable. GASTROINTESTINAL TRACT: The small and large bowel are unremarkable. The appendix is unremarkable. ABDOMINAL WALL: There is a large umbilical hernia containing fat. Small right spigelian hernia containing fat. LYMPH NODES: Normal. VASCULAR: Unremarkable. PELVIC VISCERA: The uterus appears to have been removed. No pelvic mass. OSSEOUS STRUCTURES: Unremarkable. CT/CT abdomen pelvis wo con IMPRESSION: Small bilateral renal stones. Large umbilical hernia containing fat and small spigelian hernia containing fat. Fleischner guidelines were followed.
[2021-12-29 09:05] VITALS: BP 146/103; PULSE 71; RESP 18; TEMP 35.5; O2SAT 99; BMI 36.1
--- NOTE | 2021-12-29 11:44 | ED.GENADULT ---
HPI - General Adult General Chief complaint: Back Pain/Injury Stated complaint: Back pain Time Seen by Provider: 12/29/21 10:12 History of Present Illness HPI narrative: Patient complains of worsening back pain over the last several months, she does have is a history of mild back pain throughout years, she denies any numbness weakness or tingling no radiation of pain no abdominal pain no chest pain no changes to bowel or bladder She did have a hysterectomy for endometrial cancer in 2020 and was told that likely the cancer was fully removed In addition she also complains of a small swollen vein or lump behind her right knee which has been there for about a week she denies any calf swelling or pain Related Data Previous Rx's Medication Instructions Recorded ferrous sulfate 324 mg (65 mg 324 mg PO BID #60 tab 01/12/21 iron) tablet,delayed release [id number]-stmmsnwbjegjq-xbwxdsdi 1 cap PO Q6H PRN #28 cap 02/10/21 50 mg-300 mg-40 mg capsule (Fioricet) acetaminophen 500 mg tablet 500 mg PO Q6H PRN #20 tab 10/02/21 (Tylenol Extra Strength) lidocaine 5 % topical patch 1 patch TOPICAL DAILY PRN #30 ea 10/02/21 (Lidoderm) MDD remove after 12 hours naproxen 500 mg tablet 500 mg PO BID PRN 10 Days #20 tab 10/02/21 codeine 10 mg-guaifenesin 100 mg/5 5 ml PO Q6H PRN #120 ml 10/12/21 mL oral liquid (Guaifenesin AC) acetaminophen 500 mg tablet 1,000 mg PO QID PRN #30 tab 12/29/21 cyclobenzaprine 5 mg tablet 5 mg PO TID PRN #10 tab 12/29/21 ibuprofen 600 mg tablet 600 mg PO Q6H PRN #20 tab 12/29/21 oxycodone 5 mg tablet 5 mg PO Q6H PRN #14 tab 12/29/21 Allergies Allergy/AdvReac Type Severity Reaction Status Date / Time No Known Allergies Allergy Verified 12/29/21 09:05 Review of Systems Review of Systems: Positive for back pain negatives are no fever no chills no dizziness no weakness no fainting no feeling faint no neck pain no chest pain no shortness of breath no abdominal pain no nausea or vomiting no changes to bowel or bladder no incontinence no frequency no dysuria, no skin rash, no numbness weakness or tingling Yes all other systems are reviewed and are negative [facility] Past Medical History Source: nursing notes reviewed Medical History Abnormal uterine bleeding (AUB) Acid reflux Acute GI bleeding Anemia Back pain Endometrial adenocarcinoma History of kidney stones Iron deficiency Obesity Thrombocytosis Surgical History History of History of lithotripsy S/P cystoscopy with ureteral stent placement S/P tubal ligation Family History Family History Mother Diabetes High blood pressure High cholesterol Father High blood pressure Social History Social History Household Members: Family Housing: House Do you presently have visiting nurse or other home services: No Alcohol intake: never Patient Tobacco Use Status: Never used Tobacco e-Cigarette/Vaping Use: Never Used Second Hand Smoke Exposure: No Advance Directives: No Advance Directives Information Provided: No service: No Current occupational status: unemployed Gender identity: Female Physical Exam ED Vital Signs: Vital Signs - 24 hr 12/29/21 09:05 Temperature 96 F L Pulse Rate 71 Respiratory Rate 18 Blood Pressure 146/103 H Pulse Oximetry 99 BMI result Body Mass Index 36.1 General appearance is no acute distress Head is normocephalic atraumatic Neck is supple nontender Chest clear to auscultation bilateral Heart no murmur Abdomen soft nontender The back and lower lumbar bilateral tenderness no CVA tenderness no focal bony tenderness, pain is reproduced with movement No skin abnormalities Extremities full range of motion x4 , the right leg had no redness no significant swelling no calf swelling but behind the knee was a swollen vein, palpable cord, neurovascular intact distal Neuro no focal motor sensory deficits Course Course Course Narrative: Patient with the complaint of back pain with a history of endometrial cancer had no neurologic deficits no incontinence no fever Due to the history of cancer she was sent for CT scan to look for any obvious mass, none was seen and there were incidental findings of a MAC come Piela cul hernia and bilateral renal stones In addition or complaint of a small lump behind her right knee was identified as a superficial thrombosed varicosity Well-appearing patient was discharged home with treatment for back pain and recommended to follow with primary doctor Discharge Plan Discharge Clinical Impression: Back pain, Superficial thrombophlebitis Patient Disposition: Home, Self-Care Additional Instructions: CT scan did not show any spread of cancer or any other dangerous finding Follow with primary doctor for further evaluation and possible referral for physical therapy or other workup for your back pain Ultrasound of your leg showed a thrombosed varicose superficial vein which is treated with a warm cloth and Motrin As you do have a history of cancer which was treated with surgery you should check in with her cancer doctor just to be sure that you do not need any other treatment for this superficial thrombosed vein Because you are no longer being treated for cancer and are not believed to have any active cancer you probably do not need any further treatment for it but it is a good idea to check with the specialist Return to the ER any time any worse condition or any concerns Prescriptions: New cyclobenzaprine 5 mg tablet 5 mg PO TID PRN (Reason: muscle spasm) Qty: 10 0RF ibuprofen 600 mg tablet 600 mg PO Q6H PRN (Reason: pain) Qty: 20 0RF oxycodone 5 mg tablet 5 mg PO Q6H PRN (Reason: pain) Qty: 14 0RF Rx Instructions: Narcotic, no driving for 6 hours after taking this medication acetaminophen 500 mg tablet 1,000 mg PO QID PRN (Reason: pain) Qty: 30 0RF No Action ferrous sulfate 324 mg (65 mg iron) tablet,delayed release (DR/EC) 324 mg PO BID Qty: 60 0RF [id number]-nrpktamjvvbbd-opbt [Fioricet] 50-300-40 mg capsule 1 cap PO Q6H PRN (Reason: headache) Qty: 28 0RF acetaminophen [Tylenol Extra Strength] 500 mg tablet 500 mg PO Q6H PRN (Reason: pain or fever) Qty: 20 0RF lidocaine [Lidoderm] 5 % adhesive patch,medicated 1 patch topical DAILY MDD remove after 12 hours PRN (Reason: pain) Qty: 30 0RF Rx Instructions: leave on most painful area for up to 12 hrs naproxen 500 mg tablet 500 mg PO BID PRN (Reason: pain) 10 Days Qty: 20 0RF codeine-guaifenesin [Guaifenesin AC] 10-100 mg/5 mL liquid 5 ml PO Q6H PRN (Reason: cold symptoms) Qty: 120 0RF Interventions: ED Discharge Assessment Last Done: 12/29/21 12:40 Discharge Date/Time: 12/29/21 12:41
[2021-12-29 12:02] VITALS: BP 136/77; PULSE 69; RESP 18; TEMP 36.3
== END 2021-12-29 12:41 | disposition home or self-care (01) ==
PROVIDERS: Emergency Provider Emergency Medicine
DX: M54.50 Low back pain, unspecified (principal); R60.0 Localized edema; I80.9 Phlebitis and thrombophlebitis of unspecified site; Z79.899 Other long term (current) drug therapy
CPT/HCPCS: 74176; 93971; 99284

== ENCOUNTER 2022-03-22 09:44 | Outpatient (REF) | payer MEDICAID, SELFPAY ==
[2022-03-29 06:47] LABS: HPV mRNA E6/E7 rflx Not Detected (Not Detected)
== END 2022-03-22 09:45 | disposition home or self-care (01) ==
LOC: HO.LAB 09:44
PROVIDERS: Visit Provider Advanced Practice Midwife
DX: Z01.419 Encounter for gynecological examination (general) (routine) without abnormal findings (principal); Z11.51 Encounter for screening for human papillomavirus (HPV)
CPT/HCPCS: 87624; 88142

== ENCOUNTER 2022-04-25 12:49 | Emergency (ER) | payer MEDICAID, SELFPAY ==
--- NOTE | ~2022-04-25 | XR_ITS ---
EXAMINATION: XR KNEE, RIGHT CLINICAL INFORMATION: Right knee pain and swelling. COMPARISON: None TECHNIQUE: Four views of the right knee. FINDINGS: Mild medial femoral-tibial joint space narrowing is seen. There is no acute fracture, dislocation or joint effusion. The soft tissues are unremarkable. XR/XR knee RT 4V IMPRESSION: Mild medial femoral-tibial joint space narrowing suggesting mild osteoarthritis without acute abnormality.
[2022-04-25 13:40] VITALS: BP 137/85; PULSE 70; RESP 18; TEMP 36.2; O2SAT 96; BMI 36.9
--- NOTE | 2022-04-25 18:17 | ED.EXTPRO ---
HPI - Extremity Problem General Chief complaint: Extremity Problem Stated complaint: r knee pain swollen Source: patient Mode of arrival: ambulatory Limitations: no limitations History of Present Illness HPI Narrative: 42-year-old female presents with 5 days of worsening right knee pain. Pain is worse on the initiation of movement, or when she is sitting for long periods of time and then stands. She has had knee pain for several months but over the past 5 days she has been unable to control it with Tylenol. She has not lost balance, and does not experience any numbness or tingling. Does not report any twisting or injury. MD Complaint: extremity pain Onset (ago): day(s) (5) Pain Consistency: constant Location: right and knee Severity scale (1-10): 7 Quality: aching Radiation: none Relieving factors: rest Exacerbating factors: range of motion, weight bearing, walking and palpation Associated symptoms: denies other symptoms Related Data Previous Rx's Medication Instructions Recorded acetaminophen 500 mg tablet 500 mg PO Q6H PRN pain or fever 10/02/21 (Tylenol Extra Strength) #20 tabs lidocaine 5 % topical patch 1 patch topical DAILY PRN pain #30 10/02/21 (Lidoderm) ea ibuprofen 600 mg tablet 600 mg PO Q6H PRN pain #60 tabs 04/25/22 Allergies Allergy/AdvReac Type Severity Reaction Status Date / Time No Known Allergies Allergy Verified 03/22/22 09:45 Review of Systems Review of Systems: Constitutional: No Fever, No Chills ENT/Mouth: No Ear Pain, No Hoarseness, No sore throat Eyes: No Eye Pain, No Swelling, No Redness, No Foreign Body Cardiovascular: No Chest Pain, No SOB Respiratory: No Cough, No Dyspnea Gastrointestinal: No Nausea, No Vomiting, No Diarrhea, No abdominal Pain Genitourinary: No Dysuria, No Hematuria Musculoskeletal: positive right knee pain, No Myalgias, No Joint Swelling Skin: No Skin lacerations, No rash Neuro: No Weakness, No Numbness, No Paresthesias, No Loss of Consciousness, No Dizziness, No Headache Psych: No Anxiety/Panic, No Depression Heme/Lymph: no easy bruising, no Lymphadenopathy Endocrine: No Polyuria, No Polydipsia Yes all other systems are reviewed and are negative PMFSH Past Medical History Attestation statement: The following information was validated with the patient. Source: old records reviewed Medical History Abnormal uterine bleeding (AUB) Acid reflux Acute GI bleeding Anemia Back pain Endometrial adenocarcinoma History of kidney stones Iron deficiency Obesity Thrombocytosis Surgical History H/O: hysterectomy History of History of lithotripsy S/P cystoscopy with ureteral stent placement S/P tubal ligation Family History Family History Mother Diabetes High blood pressure High cholesterol Father High blood pressure Social History Social History Household Members: Family Housing: House Do you presently have visiting nurse or other home services: No Alcohol intake: never Patient Tobacco Use Status: Never used Tobacco e-Cigarette/Vaping Use: Never Used Second Hand Smoke Exposure: No Advance Directives: No Advance Directives Information Provided: No service: No Current occupational status: unemployed Gender identity: Female Physical Exam Vital Signs: Vital Signs: Last Vital Signs Temp 97.1 F 04/25/22 13:40 Pulse 70 04/25/22 13:40 Resp 18 04/25/22 13:40 BP 137/85 04/25/22 13:40 Pulse Ox 96 04/25/22 13:40 O2 Del Method 04/25/22 13:40 BMI result Body Mass Index 36.9 Appearance: Alert. Oriented X3. No acute distress. Eyes: Pupils equal, round and reactive to light. ENT: Pharynx normal. Neck: Normal inspection. Neck supple. CVS: Normal heart rate and rhythm. Pulses normal. Respiratory: No respiratory distress. Breath sounds normal. Abdomen: Soft and nontender. Skin: Skin warm and dry. Normal skin color. Normal skin turgor. Extremities: No lower extremity edema. Full range of motion to all extremities. Negative anterior-posterior drawer. Brisk capillary refill and equal pulses. Neuro: No motor deficit. No sensory deficit. Cranial nerves 2-12 intact. Course Course Course Narrative: 42-year-old female presents with worsening right knee pain over the past 5 days. Has had chronic knee pain for the past few months however worsened over the past days. She does not report any injury or trauma. Has full range of motion and is ambulatory. Denies fevers and chills. Site does not have any appreciable swelling or erythema. Negative Homans. Low likelihood of DVT. X-rays completed while she was in the emergency department waiting room. X-rays indicate osteoarthritis. Will refer to orthopedics for evaluation. Patient does understand that she must call and request an appointment. Plan is for Motrin rest ice and elevation. Patient verbalized understanding of and agrees to plan of care discharge home. Verbalized understanding of signs and symptoms indicating need for emergent intervention. MDM - Extremity (Nontraumatic) MDM Narrative Medical decision making narrative: Effusion, dislocation, tendon injury Differential Diagnosis Differential diagnosis: Likely cellulitis, deep venous thrombosis of upper extremity and lower extremity edema Medical Records Attestation: I reviewed the patient's medical records. Imaging Data Right knee x-ray: Attestation: I personally reviewed and interpreted this imaging study as follows: Radiologist's impression: EXAMINATION: XR KNEE, RIGHT? CLINICAL INFORMATION: Right knee pain and swelling.? COMPARISON: None? TECHNIQUE: Four views of the right knee. FINDINGS: Mild medial femoral-tibial joint space narrowing is seen. There is no acute fracture, dislocation or joint effusion. The soft tissues are unremarkable. XR/XR knee RT 4V IMPRESSION: Mild medial femoral-tibial joint space narrowing suggesting mild osteoarthritis without acute abnormality. Discharge Plan Discharge Clinical Impression: Osteoarthritis of right knee Patient Disposition: Home, Self-Care Instructions: Osteoarthritis (ED), R.I.C.E. Treatment (ED) Additional Instructions: You were evaluated for right knee pain. X-rays indicate right osteoarthritis. Please take Motrin 600 mg every 6 hours as needed for pain management. Rest, ice and elevate the extremity to help reduce pain and swelling. Follow-up with Orthopedics, I referred you to Gayathri ROSENBERG. please call and request an appointment for evaluation. Thank you for choosing this emergency department for evaluation. Please follow-up with primary care physician as needed. Return to the emergency department for any new, concerning, or worsening symptoms. Prescriptions: New ibuprofen 600 mg tablet 600 mg PO Q6H PRN (Reason: pain) Qty: 60 0RF No Action acetaminophen [Tylenol Extra Strength] 500 mg tablet 500 mg PO Q6H PRN (Reason: pain or fever) Qty: 20 0RF lidocaine [Lidoderm] 5 % adhesive patch,medicated 1 patch topical DAILY MDD remove after 12 hours PRN (Reason: pain) Qty: 30 0RF Rx Instructions: leave on most painful area for up to 12 hrs Referrals: Gayathri Gomez PA-C [Physician [facility]] - 1 week (Right knee osteoarthritis) Stand Alone Forms: Work/School Release
== END 2022-04-25 18:45 | disposition home or self-care (01) ==
PROVIDERS: Emergency Provider Emergency Medicine; PCP Internal Medicine
DX: M17.11 Unilateral primary osteoarthritis, right knee (principal); M25.561 Pain in right knee
CPT/HCPCS: 73564; 99282; 99283

== ENCOUNTER 2022-05-31 05:50 | Outpatient (REF) | payer MEDICAID, SELFPAY ==
--- NOTE | ~2022-05-31 | XR_ITS ---
EXAMINATION: XR KNEES, STANDING AP XR KNEE, RIGHT CLINICAL INFORMATION: Right knee pain COMPARISON: Radiographs right knee 04/25/2022 TECHNIQUE: Standing AP view of both knees is performed along with lateral and axial patella views of the right knee. FINDINGS: Right: Normal bony mineralization. No fracture, dislocation, destructive process, or suprapatellar effusion. Hoffa's fat pad appears normal. No focal definite joint narrowing and no erosive change or chondrocalcinosis. No lateralization patella. There may be mild lateral tilting. AP view shows serpiginous soft tissue densities lateral thigh suggesting varicose veins. Left: Normal bony mineralization. No joint narrowing or erosive change or chondrocalcinosis. XR/XR knee standing BI IMPRESSION: Right: -No definite joint narrowing. No erosive change or effusion. -Probable borderline lateral tilting patella. No lateralization. -Suspect varicose veins lateral thigh soft tissues. Left: -Unremarkable.
--- NOTE | ~2022-05-31 | XR_ITS ---
EXAMINATION: XR KNEES, STANDING AP XR KNEE, RIGHT CLINICAL INFORMATION: Right knee pain COMPARISON: Radiographs right knee 04/25/2022 TECHNIQUE: Standing AP view of both knees is performed along with lateral and axial patella views of the right knee. FINDINGS: Right: Normal bony mineralization. No fracture, dislocation, destructive process, or suprapatellar effusion. Hoffa's fat pad appears normal. No focal definite joint narrowing and no erosive change or chondrocalcinosis. No lateralization patella. There may be mild lateral tilting. AP view shows serpiginous soft tissue densities lateral thigh suggesting varicose veins. Left: Normal bony mineralization. No joint narrowing or erosive change or chondrocalcinosis. XR/XR knee RT 2V IMPRESSION: Right: -No definite joint narrowing. No erosive change or effusion. -Probable borderline lateral tilting patella. No lateralization. -Suspect varicose veins lateral thigh soft tissues. Left: -Unremarkable.
== END 2022-05-31 05:51 | disposition home or self-care (01) ==
LOC: HO.HOSX 05:50
PROVIDERS: Visit Provider Physician Assistant
DX: M21.062 Valgus deformity, not elsewhere classified, left knee (principal); M17.11 Unilateral primary osteoarthritis, right knee; M76.30 Iliotibial band syndrome, unspecified leg; M25.562 Pain in left knee
CPT/HCPCS: 73560; 73565; 99202

== ENCOUNTER 2022-07-10 17:52 | Emergency (ER) | payer MEDICAID, SELFPAY ==
[2022-07-10 21:47] VITALS: BP 122/74; PULSE 74; RESP 14; TEMP 36.5; O2SAT 100; BMI 34.9
--- NOTE | 2022-07-11 01:09 | ED.SKABFB ---
HPI - Skin/Abscess/Foreign Bdy General Chief complaint: Skin/Abscess/Foreign Body Stated complaint: rash all over body Time Seen by Provider: 07/11/22 01:06 Source: patient Mode of arrival: ambulatory Limitations: no limitations History of Present Illness HPI narrative: 42-year-old female presents with a rash x 1 day. The patient reports that upon waking up this morning she noticed an itchy, red rash on her thighs that spread to her entire body and became worse throughout the day. The patient denies using any new detergents, soaps, lotions, medications, eating new foods, contact with new plants/animals. She states that she has had a normal few days and has not a done anything out of the ordinary. Aside from the rash, the patient tells me that she is feeling well. She denies any difficulty breathing, difficulty swallowing, changes in voice, sore throat, chest pain, fevers, chills, abdominal pain, nausea, or vomiting. 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 Knee brace #1 ea 06/01/22 epinephrine 0.3 mg/0.3 mL 0.3 mg (0.3 mL) IM Q4H PRN 07/11/22 injection, auto-injector (EpiPen anaphylaxis #2 ea 2-Luis) hydroxyzine HCl 25 mg tablet 25 mg PO BID PRN itching #14 tabs 07/11/22 prednisone 20 mg tablet 40 mg PO DAILY 5 days #10 tabs 07/11/22 Allergies Allergy/AdvReac Type Severity Reaction Status Date / Time No Known Allergies Allergy Verified 05/31/22 11:44 Review of Systems Review of Systems: Constitutional : No Fever, No Chills, Cardiovascular : No Chest Pain, No SOB Respiratory : No Dyspnea Gastrointestinal : No abdominal pain Musculoskeletal : No Joint Swelling Skin : + rash, No skin laceration Neuro : No Weakness, No Numbness Psych : No SI/HI Yes all other systems are reviewed and are negative [facility] Past Medical History Attestation statement: The following information was validated with the patient. Source: old records reviewed and nursing notes reviewed Medical History Abnormal uterine bleeding (AUB) Acid reflux Acute GI bleeding Anemia Back pain Endometrial adenocarcinoma History of kidney stones Iron deficiency Obesity Thrombocytosis Surgical History H/O: hysterectomy History of History of lithotripsy S/P cystoscopy with ureteral stent placement S/P tubal ligation Family History Family History Mother Diabetes High blood pressure High cholesterol Father High blood pressure Social History Social History Household Members: Family Housing: House Do you presently have visiting nurse or other home services: No Alcohol intake: never Patient Tobacco Use Status: Never used Tobacco e-Cigarette/Vaping Use: Never Used Second Hand Smoke Exposure: No Use of substances other than those prescribed or required for medical reasons: No Patient : No service: No Current occupational status: unemployed Gender identity: Female Physical Exam Vital Signs: Vital Signs: Last Vital Signs Temp 97.1 F 07/11/22 01:19 Pulse 77 07/11/22 01:19 Resp 18 07/11/22 01:19 BP 126/96 H 07/11/22 01:19 Pulse Ox 97 07/11/22 01:19 O2 Del Method 07/11/22 01:19 BMI result Body Mass Index 34.9 vss Appearance: Alert.? Oriented X3.? No acute distress.? Patient speaking in full sentences, controlling secretions well. Appears to be in no acute distress. Head: Normocephalic, atraumatic, no step-offs or deformities Eyes: Pupils equal, round and reactive to light.? ENT: Pharynx normal.? No edema to lips, soft palate, hard palate, tongue, uvula. Neck: Normal inspection.? Neck supple.? CVS: Normal heart rate and rhythm.? Pulses normal.? Respiratory: No respiratory distress.? Breath sounds normal.? No stridor. Abdomen: Soft and nontender.? Skin: Skin warm and dry.? Normal skin color.? Normal skin turgor.? + diffuse rash throughout body appears to be urticaria. Spares palms and soles Extremities: No lower extremity edema.? No calf ttp. 5/5 strength to bilateral upper and lower extremities Neuro: Oriented X 3.? No motor deficit.? No sensory deficit. CN 2-12 intact Course Reevaluation(s) Reevaluation #1: Patient will be discharged home on prednisone and Atarax, will also send her home with epi pens. Advised her to follow-up with her PCP and return new or worsening symptoms. Sign out given to Dr. Meneses pending reevaluation Time: 01:11 MDM - Skin/Abscess/Foreign Bdy MDM Narrative Medical decision making narrative: 0110 42-year-old female presents for evaluation of rash throughout her body that started today, reports rash is itchy. Call physical examination significant for rash. Plan at this time is for patient to be discharged home. Medical Records Attestation: I reviewed the patient's medical records. Lab Data Attestation: I reviewed the patient's lab results. Critical Care Time Critical Care Time Critical Care Time: No Discharge Plan Discharge Clinical Impression: Urticaria, Allergic reaction Patient Disposition: Home, Self-Care Instructions: Acute Rash (ED), Cold Compress or Soak (ED) Additional Instructions: Take your medications as prescribed. If you were prescribed antibiotics today, it is important that you take your medication to their entirety, do not skip any doses, do not finish them early. Follow-up with your primary care provider this week. Return to the emergency department with new or worsening symptoms. Such as fevers, chills, chest pain, shortness of breath, nausea, vomiting, dizziness, headache, vision changes, lethargy In case of emergency call 911 I have educated you on proper use of an EpiPen, you experience difficulty speaking, shortness of breath, or you feel like her throat is closing, you should use this as instructed. Please note that if you use an EpiPen you should seek medical attention afterwards. If you have questions on proper use feel free to speak to the pharmacist about it. AIANE: [facility] Office [address] [place] [facility] [id number] Prescriptions: New prednisone 20 mg tablet 40 mg PO DAILY 5 Days Qty: 10 0RF hydroxyzine HCl 25 mg tablet 25 mg PO BID PRN (Reason: itching) Qty: 14 0RF epinephrine [EpiPen 2-Luis] 0.3 mg/0.3 mL auto-injector 0.3 mg IM Q4H PRN (Reason: anaphylaxis) Qty: 2 0RF No Action acetaminophen [Tylenol Extra Strength] 500 mg tablet 500 mg PO Q6H PRN (Reason: pain or fever) Qty: 20 0RF lidocaine [Lidoderm] 5 % adhesive patch,medicated 1 patch topical DAILY MDD remove after 12 hours PRN (Reason: pain) Qty: 30 0RF Rx Instructions: leave on most painful area for up to 12 hrs ibuprofen 600 mg tablet 600 mg PO Q6H PRN (Reason: pain) Qty: 60 0RF (DME) Medial Invoice Control Clerk Knee brace See Rx Instructions .ROUTE .MEDSUPPLY Qty: 1 0RF Rx Instructions: n/a Referrals: Physician,Unknown J [Primary Care Provider] - 2 days
[2022-07-11 01:19] VITALS: BP 126/96; PULSE 77; RESP 18; TEMP 36.2; O2SAT 97
[2022-07-11] MEDS: diphenhydrAMINE HCL 25 MG TABLET PO (01:25)
[2022-07-11] MEDS: dexAMETHasone sod phosphate 4 MG/ML VIAL 8 MG IVPUSH (01:25)
--- NOTE | 2022-07-11 01:33 | PC.NURSE ---
Assumed care of pt. from waiting room at 1:15. Pt. is alert and oriented with no SOB or difficulty breathing. Pt. c/o itchy and rash is present all over body. Medicated per MAR. Will continue to monitor.
--- NOTE | 2022-07-11 02:21 | PC.NURSE ---
Pt. sitting in bed in room. States that the itching is starting to calm down a bit.
--- NOTE | 2022-07-11 02:48 | PC.NURSE ---
Pt. resting quietly in bed. Reports more relief from the itching.
== END 2022-07-11 02:50 | disposition home or self-care (01) ==
PROVIDERS: Emergency Provider Internal Medicine; PCP Internal Medicine
DX: L50.0 Allergic urticaria (principal); R21 Rash and other nonspecific skin eruption; Z79.899 Other long term (current) drug therapy
CPT/HCPCS: 96374; 99284; J1100; Q0163

== ENCOUNTER 2022-11-19 11:51 | Emergency (ER) | payer MEDICAID, SELFPAY ==
[2022-11-19 11:57] VITALS: BP 147/94; PULSE 84; RESP 16; TEMP 37; O2SAT 95; BMI 35.5
--- NOTE | 2022-11-19 11:57 | ED_ITS ---
HPI - Back Pain/Injury General Chief Complaint: Back Pain/Injury <SHAKIRA Mccarthy - Last Filed: 11/19/22 12:00> Stated Complaint: Lower back pain <SHAKIRA Mccarthy - Last Filed: 11/19/22 12:00> Time Seen by Provider: 11/19/22 13:45 <SHAKIRA Mccarthy - Last Filed: 11/19/22 12:00> Source: patient <SHAKIRA Zuniga Last Filed: 11/19/22 16:07> Mode of arrival: ambulatory <SHAKIRA Zuniga Last Filed: 11/19/22 16:07> Limitations: no limitations <SHAKIRA Zuniga Last Filed: 11/19/22 16:07> History of Present Illness HPI Narrative: Patient is a 42 year old assigned female at with a history of anemia and chronic back pain presenting to the emergency department today with low back pain. Patient states that she has always had a bit of back pain over the last 12 years since having her son however it has started to get worse over the last few months. Patient denies any dizziness, lightheadedness, abdominal pain, nausea, vomiting, fever, chills, blurry vision, double vision, loss of vision, chest pain, difficulty breathing, shortness of breath, night sweats, pain with urination, increased urinary frequency, increased urinary urgency, blood in her urine or stool, syncope or a near syncopal episode, recent trauma or falls, bowel incontinence, bladder incontinence, bowel retention, bladder retention, or any other complaints at this time. <SHAKIRA Zuniga - Last Filed: 11/19/22 16:07> MD elicited complaint: back pain <SHAKIRA Zuniga - Last Filed: 11/19/22 16:07> Onset (ago): year(s) (12) <SHAKIRA Zuniga Last Filed: 11/19/22 16:07> Timing: intermittent <SHAKIRA Zuniga Last Filed: 11/19/22 16:07> Severity: mild <SHAKIRA Zuniga Last Filed: 11/19/22 16:07> Pain scale (0-10): 3 <SHAKIRA Zuniga Last Filed: 11/19/22 16:07> Similar Symptoms Previously: Yes <SHAKIRA Zuniga - Last Filed: 11/19/22 16:07> Quality: dull <SHAKIRA Zuniga - Last Filed: 11/19/22 16:07> Location: lumbar spine <SHAKIRA Zuniga - Last Filed: 11/19/22 16:07> Radiation: none <SHAKIRA Zuniga - Last Filed: 11/19/22 16:07> Exacerbating factors: none <SHAKIRA Zuniga - Last Filed: 11/19/22 16:07> Relieving factors: none <SHAKIRA Zuniga - Last Filed: 11/19/22 16:07> Associated symptoms: denies other symptoms <SHAKIRA Zuniga - Last Filed: 11/19/22 16:07> Work related injury: No <SHAKIRA Zuniga - Last Filed: 11/19/22 16:07> Related Data Home Medications: Previous Rx's Medication Instructions Recorded acetaminophen 500 mg tablet 500 mg PO Q6H PRN pain or fever 10/02/21 (Tylenol Extra Strength) #20 tabs lidocaine 5 % topical patch 1 patch topical DAILY PRN pain #30 10/02/21 (Lidoderm) ea ibuprofen 600 mg tablet 600 mg PO Q6H PRN pain #60 tabs 04/25/22 Medial [employer] Knee brace #1 ea 06/01/22 epinephrine 0.3 mg/0.3 mL 0.3 mg (0.3 mL) IM Q4H PRN 07/11/22 injection, auto-injector (EpiPen anaphylaxis #2 ea 2-Luis) hydroxyzine HCl 25 mg tablet 25 mg PO BID PRN itching #14 tabs 07/11/22 prednisone 20 mg tablet 40 mg PO DAILY 5 days #10 tabs 07/11/22 prednisone 20 mg tablet 20 mg PO DAILY 7 days #7 tabs 11/19/22 <SHAKIRA Mccarthy - Last Filed: 11/19/22 12:00> Allergies/Adverse Reactions: Allergies Allergy/AdvReac Type Severity Reaction Status Date / Time No Known Allergies Allergy Verified 11/19/22 11:59 <SHAKIRA Mccarthy - Last Filed: 11/19/22 12:00> Review of Systems Constitutional: Constitutional: Reports no additional constitutional complaints, Denies chills, Denies fever(s) and Denies night sweats <SHAKIRA Zuniga - Last Filed: 11/19/22 16:07> Eyes: Eyes: Reports no additional eye complaints, Denies blurry vision, Denies change in vision, Denies diplopia, Denies eye discharge, Denies loss of vision and Denies eye pain <SHAKIRA Zuniga - Last Filed: 11/19/22 16:07> ENT: Denies dizziness <SHAKIRA Zuniga - Last Filed: 11/19/22 16:07> Cardiovascular: Cardiovascular: Reports no additional cardiovascular complaints, Denies chest pain, Denies lightheadedness, Denies Loss of Consciousness and Denies dyspnea <SHAKIRA Zuniga - Last Filed: 11/19/22 16:07> Respiratory: Respiratory: Reports no additional respiratory complaints and Denies dyspnea <SHAKIRA Zuniga - Last Filed: 11/19/22 16:07> Gastrointestinal: Gastrointestinal: Reports no additional gastrointestinal complaints, Denies abdominal pain, Denies melena, Denies hematochezia, Denies change in bowel habits and Denies change in stool character <SHAKIRA Zuniga - Last Filed: 11/19/22 16:07> Genitourinary: Genitourinary: Denies hematuria, Denies urinary frequency, Denies dysuria, Denies urinary incontinence, Denies urinary hesitancy and Denies urinary urgency <SHAKIRA Zuniga - Last Filed: 11/19/22 16:07> Musculoskeletal: Musculoskeletal: Reports no additional musculoskeletal complaints, Reports back pain, Denies numbness and Denies tingling <SHAKIRA Zuniga - Last Filed: 11/19/22 16:07> Neurologic: Denies dizziness, Denies loss of vision, Denies numbness and Denies tingling <SHAKIRA Zuniga - Last Filed: 11/19/22 16:07> Psychiatric: Psychiatric: Reports no additional psychiatric complaints <SHAKIRA Zuniga - Last Filed: 11/19/22 16:07> Endocrine: Endocrine: Reports no additional endocrine complaints <SHAKIRA Zuniga - Last Filed: 11/19/22 16:07> Hematologic/Lymphatic: Hematologic/Lymphatic: Reports no additional hematologic/lymphatic complaints <SHAKIRA Zuniga - Last Filed: 11/19/22 16:07> Allergic/Immunologic: Allergic/Immunologic: Reports no additional allergic/immunologic complaints <SHAKIRA Zuniga - Last Filed: 11/19/22 16:07> [facility] Past Medical History Attestation statement: The following information was validated with the patient. <SHAKIRA Vivas - Last Filed: 11/19/22 16:07> Source: old records reviewed and nursing notes reviewed <SHAKIRA Zuniga - Last Filed: 11/19/22 16:07> Medical History: Medical History Abnormal uterine bleeding (AUB) Acid reflux Acute GI bleeding Anemia Back pain Endometrial adenocarcinoma History of kidney stones Iron deficiency Obesity Thrombocytosis <SHAKIRA Mccarthy - Last Filed: 11/19/22 12:00> Surgical History: Surgical History H/O: hysterectomy History of History of lithotripsy S/P cystoscopy with ureteral stent placement S/P tubal ligation <SHAKIRA Mccarthy - Last Filed: 11/19/22 12:00> Family History Family History: Family History Mother Diabetes High blood pressure High cholesterol Father High blood pressure <SHAKIRA Mccarthy - Last Filed: 11/19/22 12:00> Social History Social History: Social History Household Members: Family Housing: House Do you presently have visiting nurse or other home services: No Alcohol intake: never Patient Tobacco Use Status: Never used Tobacco e-Cigarette/Vaping Use: Never Used Second Hand Smoke Exposure: No Advance Directives: No Advance Directives Information Provided: Yes service: No Current occupational status: unemployed Gender identity: Female <SHAKIRA Mccarthy - Last Filed: 11/19/22 12:00> Physical Exam Vital Signs: Vital Signs: Last Vital Signs Temp 98.6 F 11/19/22 11:57 Pulse 84 11/19/22 11:57 Resp 16 01/23/23 11:57 BP 147/94 H 11/19/22 11:57 Pulse Ox 95 11/19/22 11:57 O2 Del Method 11/19/22 11:57 BMI result Body Mass Index 35.5 <SHAKIRA Mccarthy - Last Filed: 11/19/22 12:00> Vital Signs: Last Vital Signs Temp 98.6 F 11/19/22 11:57 Pulse 84 11/19/22 11:57 Resp 16 11/19/22 11:57 BP 147/94 H 11/19/22 11:57 Pulse Ox 95 11/19/22 11:57 O2 Del Method 11/19/22 11:57 BMI result Body Mass Index 35.5 <SHAKIRA Zuniga - Last Filed: 11/19/22 16:07> Const: General: cooperative, no acute distress, alert and awake <SHAKIRA Zuniga - Last Filed: 11/19/22 16:07> Nutritional Appearance: well nourished <SHAKIRA Zuniga - Last Filed: 11/19/22 16:07> Orientation/consciousness: patient oriented x3 <SHAKIRA Zuniga - Last Filed: 11/19/22 16:07> Limitations: no limitations <SHAKRIA Zuniga - Last Filed: 11/19/22 16:07> HEENT: Head: Yes normal to inspection and Yes atraumatic <SHAKIRA Zuniga - Last Filed: 11/19/22 16:07> Ears: hearing grossly normal bilaterally and external ears normal <SHAKIRA Zuniga - Last Filed: 11/19/22 16:07> General nose exam: Normal external nose present, no nasal discharge noted and no epistaxis <SHAKIRA Zuniga - Last Filed: 11/19/22 16:07> Face and sinus: Yes normal facial exam, No abrasion and No laceration <SHAKIRA Zuniga - Last Filed: 11/19/22 16:07> Mouth: Normal oral and palatal mucosa present, no drooling and no muffled voice <SHAKIRA Zuniga - Last Filed: 11/19/22 16:07> Eyes: General: appearance normal, both eyes and all related structures <SHAKIRA Zuniga - Last Filed: 11/19/22 16:07> Periorbital: periorbital findings normal <Danna Cobb [place] - Last Filed: 11/19/22 16:07> Eyelids: Yes eyelids normal <Danna Cobb [facility] Last Filed: 11/19/22 16:07> Conjunctivae: conjunctivae normal <Danna Cobb SC - Last Filed: 11/19/22 16:07> Pupils: Equal, round and reactive pupils present <Danna Cobb SC - Last Filed: 11/19/22 16:07> EOM: EOMs intact bilaterally <Danna Cobb SC - Last Filed: 11/19/22 16:07> Neck: Neck: Yes normal visual inspection, Yes full ROM and Yes no lymphadenopathy <Danna Cobb [facility] Last Filed: 11/19/22 16:07> Chest: Chest palpation & inspection: normal inspection of the chest <Danna Cobb [facility] Last Filed: 11/19/22 16:07> Resp: Effort & Inspection: normal respiratory effort and able to speak in complete sentences <Danna Cobb [facility] Last Filed: 11/19/22 16:07> Auscultation: clear to auscultation bilaterally <Danna Cobb SC - Last Filed: 11/19/22 16:07> Cardio: Rate: regular rate <Danna Cobb [facility] Last Filed: 11/19/22 16:07> Rhythm: regular rhythm <Danna Cobb [facility] Last Filed: 11/19/22 16:07> GI: Inspection: Yes normal to inspection <Danna Cobb [facility] Last Filed: 11/19/22 16:07> Palpation (GI): Soft to palpation, not firm, nontender, no guarding and not rigid <Danna Cobb SC - Last Filed: 11/19/22 16:07> : General: Yes no CVA tenderness <Danna Cobb SC - Last Filed: 11/19/22 16:07> Back/Spine/Pelvis: Back: no CVA tenderness <Danna Cobb SC - Last Filed: 11/19/22 16:07> Cervical Spine: normal cervical lordosis and cervical ROM normal <Danna Cobb SC - Last Filed: 11/19/22 16:07> Thoracic/Lumbar Spine: thoracic and lumbar spine normal to inspection and thoraco-lumbar ROM normal <Danna AshtonSHAKIRA denson - Last Filed: 11/19/22 16:07> Pelvis: no pain with anterior-posterior compression <Danna Ashtonjarett PA - Last Filed: 11/19/22 16:07> Neuro: General: patient oriented x3 and moves all extremities <Dannaalicia AshtonSHAKIRA denson - Last Filed: 11/19/22 16:07> Cranial nerves: Yes Equal, round and reactive pupils present <Danna Ashtonjarett PA - Last Filed: 11/19/22 16:07> Cognition (Neuro): normal cognition <Dannaalicia AshtonSHAKIRA denson - Last Filed: 11/19/22 16:07> Motor exam (neuro): 5/5 motor strength present throughout <Danna Ashtonjarett PA - Last Filed: 11/19/22 16:07> Sensory Exam: Normal double simultaneous stimulation for sensation <Danna Jordyn SC - Last Filed: 11/19/22 16:07> Coordination: [id number] test normal <Dannaalicia Ashtonjarett PA - Last Filed: 11/19/22 16:07> Extrem: General: Yes normal to inspection, Yes full ROM and Yes capillary refill normal <Danna AshtonSHAKIRA denson - Last Filed: 11/19/22 16:07> Psych: Appearance: grossly normal <Danna SHAKIRA Cobb - Last Filed: 0 11/19/22 16:07> Mental Status: mental status grossly normal <Danna SHAKIRA Cobb - Last Filed: 11/19/22 16:07> Affect: normal affect <Danna Jordyn PA - Last Filed: 11/19/22 16:07> Attitude: cooperative <SHAKIRA Zuniga - Last Filed: 11/19/22 16:07> Thought process: Normal thought process present <SHAKIRA Zuniga - Last Filed: 11/19/22 16:07> Thought content: Normal thought content present <SHAKIRA Zuniga - Last Filed: 11/19/22 16:07> Insight: Good insight present (Psych) <SHAKIRA Zuniga - Last Filed: 11/19/22 16:07> Course Course Course Narrative: RME - 42 yo female presenting with acute on chronic nontraumatic low back pain that has been going for 12 years after epidural. Pain is across the entire lower back, worse with movement. Hx kidney stones, does not feel the same. No red flag symptoms of LBP. Will check UA, plan to treat for MSK back pain if negative. <SHAKIRA Mccarthy - Last Filed: 11/19/22 12:00> Medical Decision Making Medical Decision Making [facility] Narrative: Patient is a 42 year old assigned female at with a history of anemia and chronic back pain presenting to the emergency department today with low back pain. Patient's physical exam was unremarkable. Patient's urine showed no acute process. I explained my physical exam findings as well as all test results to the patient. I answered all questions asked by the patient. I stressed the importance of the patient taking her medication as prescribed. I stressed the importance of the patient following up with her primary care provider and a recruiting specialist. I stressed the importance of the patient returning to the emergency department immediately if her symptoms were to worsen or if she were to develop any dizziness, shortness of breath, difficulty breathing, chest pain, blurry vision, loss of vision, nausea, vomiting, abdominal pain, fever, chills, back pain, or any other complaints. Patient verbalized agreement and understanding with this treatment plan and discharge. <SHAKIRA Zuniga - Last Filed: 11/19/22 16:07> Differential Diagnosis Differential Diagnoses: The differential diagnosis associated with the presentation includes <SHAKIRA Zuniga - Last Filed: 11/19/22 16:07> low back pain, chronic back pain <SHAKIRA Zuniga - Last Filed: 11/19/22 16:07> Lab Data [facility] Lab Attestation statement: I reviewed the patient's lab results. <SHAKIRA Zuniga - Last Filed: 11/19/22 16:07> Labs: Lab Results 11/19/22 Range/Units 13:30 Urine Color Yellow Urine Appearance Clear Urine pH 7.5 (5.0-9.0) Ur Specific [place] 1.020 (1.005-1.025) Urine Protein Negative (Neg-Trace) mg/dL Urine Glucose (UA) Negative (Negative) mg/dL Urine Ketones Negative (Negative) mg/dL Urine Blood Negative (Negative) Urine Nitrite Negative (Negative) Ur Leukocyte Esterase Small (1+) H (Negative) Urine RBC 0-2 (0-2) /HPF Urine WBC 0-5 (0-5) /HPF Ur Squamous Epith Cells 3-5 (0-2) /HPF Urine Bacteria None Seen (None Seen) Hyaline Casts 0-2 (0-2) /LPF <SHAKIRA Mccarthy - Last Filed: 11/19/22 12:00> Lab Results 11/19/22 Range/Units 13:30 Urine Color Yellow Urine Appearance Clear Urine pH 7.5 (5.0-9.0) Ur Specific [place] 1.020 (1.005-1.025) Urine Protein Negative (Neg-Trace) mg/dL Urine Glucose (UA) Negative (Negative) mg/dL Urine Ketones Negative (Negative) mg/dL Urine Blood Negative (Negative) Urine Nitrite Negative (Negative) Ur Leukocyte Esterase Small (1+) H (Negative) Urine RBC 0-2 (0-2) /HPF Urine WBC 0-5 (0-5) /HPF Ur Squamous Epith Cells 3-5 (0-2) /HPF Urine Bacteria None Seen (None Seen) Hyaline Casts 0-2 (0-2) /LPF <SHAKIRA Zuniga - Last Filed: 11/19/22 16:07> Discharge Plan Discharge Clinical Impression: Back pain <SHAKIRA Mccarthy - Last Filed: 11/19/22 12:00> Patient Disposition: Home, Self-Care <SHAKIRA Mccarthy - Last Filed: 11/19/22 12:00> Instructions: Chronic Back Pain (DC) <SHAKIRA Mccarthy - Last Filed: 11/19/22 12:00> Additional Instructions: Follow up with your primary care provider and a recruiting specialist. Return to the emergency department immediately if your symptoms worsen or if you develop any dizziness, shortness of breath, difficulty breathing, chest pain, blurry vision, loss of vision, nausea, vomiting, abdominal pain, fever, chills, back pain, or any other complaints. <SHAKIRA Mccarthy - Last Filed: 11/19/22 12:00> Prescriptions: New prednisone 20 mg tablet 20 mg PO DAILY 7 Days Qty: 7 0RF No Action acetaminophen [Tylenol Extra Strength] 500 mg tablet 500 mg PO Q6H PRN (Reason: pain or fever) Qty: 20 0RF lidocaine [Lidoderm] 5 % adhesive patch,medicated 1 patch topical DAILY MDD remove after 12 hours PRN (Reason: pain) Qty: 30 0RF Rx Instructions: leave on most painful area for up to 12 hrs ibuprofen 600 mg tablet 600 mg PO Q6H PRN (Reason: pain) Qty: 60 0RF prednisone 20 mg tablet 40 mg PO DAILY 5 Days Qty: 10 0RF hydroxyzine HCl 25 mg tablet 25 mg PO BID PRN (Reason: itching) Qty: 14 0RF epinephrine [EpiPen 2-Luis] 0.3 mg/0.3 mL auto-injector 0.3 mg IM Q4H PRN (Reason: anaphylaxis) Qty: 2 0RF (DME) Medial Farmer [employer] Knee brace See Rx Instructions .ROUTE .MEDSUPPLY Qty: 1 0RF Rx Instructions: n/a <SHAKIRA Mccarthy - Last Filed: 11/19/22 12:00> Referrals: [facility] [Provider Group] Zita Gibbs MD [Primary Care Provider] - <SHAKIRA Mccarthy - Last Filed: 11/19/22 12:00> Interventions: ED Discharge Assessment Last Done: 11/19/22 14:29 <SHAKIRA Mccarthy - Last Filed: 11/19/22 12:00> Discharge Date/Time: 11/19/22 14:30 <SHAKIRA Mccarthy - Last Filed: 11/19/22 12:00> Print Language: [place] <SHAKIRA Mccarthy - Last Filed: 11/19/22 12:00>
[2022-11-19 13:43] LABS: Appearance Urine Clear; Color Urine Yellow; Glucose Urine UA Negative (Negative); Leukocyte Esterase Urine Small (1+) (Negative); Nitrite Urine Negative (Negative); PH 7.5 (5.0-9.0); UMIC TRIGGER UACC YES; Urine Blood Negative (Negative); Urine Ketones Negative (Negative); Urine Protein Negative (Neg-Trace)
[2022-11-19 14:19] LABS: Bacteria Urine None Seen (None Seen); Hyaline Casts Urine 0-2 /LPF (0-2); RBC Urine 0-2 /HPF (0-2); UACC Culture Trigger YES; WBC Urine 0-5 /HPF (0-5)
== END 2022-11-19 14:30 | disposition home or self-care (01) ==
PROVIDERS: Physician Assistant; Emergency Provider Emergency Medicine; PCP Internal Medicine
DX: M54.50 Low back pain, unspecified (principal)
CPT/HCPCS: 81001; 87086; 99282; 99283

== ENCOUNTER → 2022-11-22 09:24 | Outpatient (BNVA) | payer MEDICAID, SELFPAY | PROVIDERS: PCP Internal Medicine; Visit Provider Physician Assistant | DX: M17.11 Unilateral primary osteoarthritis, right knee (principal) | CPT/HCPCS: 99212 ==

== ENCOUNTER 2022-11-27 12:33 | Outpatient (REF) | payer MEDICAID, SELFPAY ==
--- NOTE | ~2022-11-27 | XR_ITS ---
EXAMINATION: XR LUMBOSACRAL SPINE CLINICAL INFORMATION: Low back pain. COMPARISON: None. TECHNIQUE: 3 views of the lumbosacral spine. FINDINGS: There is normal lumbar lordosis. The vertebral heights, alignment and disc heights are normal. No visible acute fracture, dislocation or lytic process seen. The paravertebral soft tissues are normal. The SI joints are symmetrical and normal. XR/XR lumbar spine 2-3V IMPRESSION: Unremarkable lumbar spine exam.
== END 2022-11-27 12:34 | disposition home or self-care (01) ==
LOC: HO.XRAY 12:33
PROVIDERS: PCP Internal Medicine; Visit Provider Nurse Practitioner Primary Care
DX: M54.50 Low back pain, unspecified (principal)
CPT/HCPCS: 72100

== ENCOUNTER 2022-12-13 09:45 | Outpatient (REF) | payer MEDICAID, SELFPAY ==
--- NOTE | ~2022-12-13 | MM_ITS ---
EXAMINATION: MM SCREENING DIGITAL BREAST TOMOSYNTHESIS, BILATERAL CLINICAL INFORMATION: Screening. Asymptomatic. The lifetime risk of breast cancer based on the Tyrer-Cuzick Model is 6%. COMPARISON: Mammography: 12/11/2021, 11/30/2020, 04/29/2018 (baseline). TECHNIQUE: Digital breast tomosynthesis is performed in both the craniocaudal and mediolateral oblique views along with computer-aided detection (CAD). Synthesized 2D images are generated from the tomosynthesis. FINDINGS: There are scattered areas of fibroglandular density (ACR BI-RADS breast composition Category b). There are no significant masses, abnormal calcifications, or other abnormalities. No architectural abnormality or developing density or significant change from prior studies. There are 2 incidental nodes posterior upper right breast again noted. The skin contours are smooth. There are no significant changes. MM/MM tomosynthesis screening BI IMPRESSION: No mammographic evidence of malignancy. ASSESSMENT: BI-RADS 2: Benign RECOMMENDATION: Routine annual mammography screening. This patient's information was entered into a reminder system with a target due date for their next mammogram.
== END 2022-12-13 09:46 | disposition home or self-care (01) ==
LOC: HO.MAMMO 09:45
PROVIDERS: PCP Internal Medicine; Visit Provider Internal Medicine
DX: Z12.31 Encounter for screening mammogram for malignant neoplasm of breast (principal)
CPT/HCPCS: 77063; 77067

== ENCOUNTER 2023-05-15 15:05 | Outpatient (AMB) | payer MEDICAID, SELFPAY ==
[2023-05-15 15:31] VITALS: BP 130/73; PULSE 71; BMI 38.1
--- NOTE | 2023-05-15 15:31 | A.OFFVIS_ITS ---
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 cm, diaphragm hiatus at 35 cm, normal mucosa, non obstructive schatzki ring noted Stomach: Patchy erythema in proximal stomach. Biopsies were obtained. Grade 2 flap valve on retroflexed examination of the cardia. Duodenum: Normal bulb and descending duodenum, bx taken Intervention: Biopsies as noted above Findings: Terminal Ileum-normal Cecum:normal Ascending Colon: normal Transverse Colon -normal Descending Colon:normal Sigmoid Colon: normal Rectum: Retroflexion with small internal hemorrhoids, grade I Anorectum - normal Colon preparation: Jefferson Bowel Preparation Scale Right colon; 3 Transverse colon: 3 Left colon; 3 (0 = Unprepared colon segment with mucosa not seen due to solid stool that cannot be cleared. 1 = Portion of mucosa of the colon segment seen, but other areas of the colon segment not well seen due to staining, residual stool and/or opaque liquid. 2 = Minor amount of residual staining, small fragments of stool and/or opaque liquid, but mucosa of colon segment seen well. 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 Send to our office for colonoscopy. Colonoscopy was recommended to be repeated in 10 years. No polyps found. Patient at the same time was diagnosed with endometrial adenocarcinoma and underwent surgery and seen [facility]. Patient reports that she is constipated. Uses her bowels every 2-3 days. Patient denies melena, hematochezia, unintentional weight loss or ribbon like stools. Patient denies any dyspepsia, dysphagia or odynophagia. [facility] Medical History Abnormal uterine bleeding (AUB) Acid reflux Acute GI bleeding Anemia Back pain Endometrial adenocarcinoma History of kidney stones Iron deficiency Obesity Thrombocytosis Surgical History H/O: hysterectomy History of History of lithotripsy S/P cystoscopy with ureteral stent placement S/P tubal ligation Family History Mother Diabetes High blood pressure High cholesterol Father High blood pressure Social History Household Members: Family Housing: House Do you presently have visiting nurse or other home services: No Alcohol intake: never Patient Tobacco Use Status: Never used Tobacco e-Cigarette/Vaping Use: Never Used Second Hand Smoke Exposure: No service: No Current occupational status: unemployed Gender identity: Female Female Reproductive History Menstrual Age of Menarche: 11 Review of Systems Const Denies weight gain and Denies weight loss ENT Reports no additional complaints, Denies dysphagia and Denies odynophagia Card Reports no additional complaints Resp Reports no additional complaints GI Denies abdominal pain, Denies belching, Denies melena, Denies bloating, Reports constipation, Denies dysphagia, Denies excessive flatus, Denies dyspepsia, Denies heartburn, Denies diarrhea, Denies loose stools, Denies nausea, Denies odynophagia and Denies vomiting Reports no additional complaints Musc Reports no additional complaints Neuro Reports no additional complaints Psych Reports no additional complaints Endo Reports no additional complaints Physical Exam Vital Signs: Last Vital Signs Pulse 71 05/15/23 15:31 BP 130/73 05/15/23 15:31 BMI result Body Mass Index 38.1 Const General: healthy appearing, no acute distress and well developed Nutritional Appearance: obese Orientation/consciousness: patient oriented x3 HEENT Head: Yes normal to inspection, Yes normocephalic and Yes atraumatic Face and sinus: Yes normal facial exam Mouth: Normal oral and palatal mucosa present Throat: Yes posterior oropharynx normal, Yes tonsils normal and Yes uvula midline Eyes General: appearance normal, both eyes and all related structures Neck Neck: Yes normal visual inspection, Yes full ROM and Yes trachea midline Thyroid: Thyroid normal Resp Effort & Inspection: normal respiratory effort, able to speak in complete sentences, no tracheal deviation and symmetric chest movement Auscultation: clear to auscultation bilaterally Cardio Rate: regular rate Heart sounds: S1 normal heart sound present and S2 normal heart sound present GI Inspection: Yes normal to inspection and No distended Palpation (GI): Soft to palpation, not firm, nontender and No hepatosplenomegaly present Auscultation: normal bowel sounds General: Yes no CVA tenderness Back/Spine/Pelvis Back: no CVA tenderness Skin General skin exam: elasticity normal, turgor normal and dry skin Neuro General: patient oriented x3 Psych Appearance: grossly normal Mental Status: mental status grossly normal Speech and movement: Normal speech and movement present Affect: normal affect Assessment & Plan Assessment & Plan (1) Constipation: Code(s): K59.00 - Constipation, unspecified Qualifiers: Constipation type: slow transit constipation Qualified Code(s): K59.01 - Slow transit constipation Plan: Patient will start MiraLax daily. Patient will return for colorectal screen in 2030, sooner if clinically necessary. Patient will follow-up with our office on as needed basis. She is agreeable to this plan and verbalizes understanding of instructions. She was given the opportunity to ask questions and all questions answered. Thank you for allowing me to participate in her care Medications: New polyethylene glycol 3350 (Miralax) 17 grams PO DAILY 510 grams 2RF Coding Level of Care Code New Pt Level 3 (85487) Diagnoses Constipation K59.01 Constipation type: slow transit constipation Time Spent (min) 40 Comment 30 minutes spent with patient and additional 10 minutes spent reviewing her records
== END 2023-05-15 16:00 | disposition home or self-care (01) ==
PROVIDERS: PCP Internal Medicine; Visit Provider Nurse Practitioner Family
DX: K59.01 Slow transit constipation (principal)
CPT/HCPCS: 99203

== ENCOUNTER → 2023-05-15 15:05 | Outpatient (BNVA) | payer MEDICAID, SELFPAY | PROVIDERS: PCP Internal Medicine; Visit Provider Nurse Practitioner Family | DX: K92.2 Gastrointestinal hemorrhage, unspecified (principal); D64.9 Anemia, unspecified | CPT/HCPCS: 99203 ==

== ENCOUNTER 2023-05-28 14:35 | Outpatient (AMB) | payer MEDICAID, SELFPAY ==
--- NOTE | 2023-05-28 14:37 | A.OFFVIS_ITS ---
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 Right LE worse than Left LE. 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 Complaints include pain over varicosities, swelling of lower extremities, cramping, fatigue, and heaviness of the lower extremities. 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 It is noted more so in right leg. Patient denies any previous venous surgery or injections. Patient denies any history of DVT/ PE. Patient denies any history of phlebitis. Trial of compression includes - [id number] They now present for vascular evaluation regarding their varicose veins. [facility] Medical History Abnormal uterine bleeding (AUB) Acid reflux Acute GI bleeding Anemia Back pain Endometrial adenocarcinoma History of kidney stones Iron deficiency Obesity Thrombocytosis Surgical History H/O: hysterectomy History of History of lithotripsy S/P cystoscopy with ureteral stent placement S/P tubal ligation Family History Mother Diabetes High blood pressure High cholesterol Father High blood pressure Social History Household Members: Family Housing: House Do you presently have visiting nurse or other home services: No Alcohol intake: never Patient Tobacco Use Status: Never used Tobacco e-Cigarette/Vaping Use: Never Used Second Hand Smoke Exposure: No service: No Current occupational status: unemployed Gender identity: Female Female Reproductive History Menstrual Age of Menarche: 11 Review of Systems Const Reports as per HPI ENT Reports no additional complaints Card Denies chest pain, Denies chest pain at rest and Denies chest pain with activity Resp Denies chest congestion and Denies cough GI Reports no additional complaints Musc Details: pain over varicosities, aching of lower extremities, swelling, cramping, heaviness and tiredness, itching Denies abnormal gait Skin/Breast Reports pruritus and Denies wounds Neuro Reports no additional complaints and Denies abnormal gait Psych Denies no additional complaints Physical Exam Vital Signs: BMI result Body Mass Index 38.1 Const General: cooperative, healthy appearing and comfortable Orientation/consciousness: oriented to person, oriented to place and oriented to time Neck Carotids: no bruits Chest Chest palpation & inspection: normal inspection of the chest and normal palpation of entire chest wall Resp Effort & Inspection: normal respiratory effort and able to speak in complete sentences Cardio Rate: regular rate Heart sounds: S1 normal heart sound present and S2 normal heart sound present Peripheral pulses: Peripheral pulses 2+ throughout GI Inspection: Yes normal to inspection Skin Other: +2 edema, large rope-like varicosities greater than 4 mm right knee CEAP Classification C4 - skin color changes Ep - Etiology Primary As - superficial veins P - reflux General skin exam: dry skin Neuro General: oriented to person, oriented to place and oriented to time Extrem Right lower extremity: full ROM, normal capillary refill and edema Left lower extremity: full ROM, normal capillary refill and edema Psych Mental Status: mental status grossly normal Assessment & Plan Assessment & Plan (1) Varicose veins of right lower extremity with inflammation: Code(s): I83.11 - Varicose veins of right lower extremity with inflammation Plan: In short, the patient has evidence of venous insufficiency. I have discussed the pathophysiology with the patient. In addition I have provided informational material regarding venous disease to the patient. We have discussed conservative measures including compression, elevation, and exercise. I have also provided a handout regarding appropriate use of compression stockings and where to purchase good compression stockings as well. I have taken the liberty of ordering venous insufficiency testing with the patient. They will follow up with me after testing. The patient had an opportunity to ask questions regarding the treatment plan. All questions were answered. Imaging studies, laboratory studies and physical exam results were discussed and reviewed in detail. No major barriers to understanding were identified. The patient expressed understanding and agreeme nt with the above treatment plan. The patient is aware they should contact our office by phone for worsening of the current condition or the appearance of new symptoms. Thank you for allowing me to participate in the vascular care of this patient. If you have any questions or concerns regarding the treatment for the above condition please do not hesitate to contact me. The office telephone cont act is [phone]. This note is constructed using voice recognition software. While every effort has been made to ensure accuracy, culinary assistant errors may have been included. Thank you for allowing me to participate in the care of your patient. Yours sincerely, Elmo Garcia MD, FACS, R.P.V.I. Orders: Orders US venous duplex LE BI 1 Week I83.11 - Varicose veins of right lower extremity with inflammation Coding Level of Care Code New Pt Level 4 (19812) Diagnoses Varicose veins of right lower extremity with inflammation I83.11
[2023-05-28 14:38] VITALS: BMI 38.1
== END 2023-05-28 15:01 | disposition home or self-care (01) ==
PROVIDERS: PCP Internal Medicine; Visit Provider Surgery Vascular Surgery
DX: I83.11 Varicose veins of right lower extremity with inflammation (principal)
CPT/HCPCS: 99203

== ENCOUNTER → 2023-05-28 14:35 | Outpatient (BNVA) | payer MEDICAID, SELFPAY | PROVIDERS: PCP Internal Medicine; Visit Provider Surgery Vascular Surgery ==

== ENCOUNTER 2023-06-12 12:58 | Outpatient (REF) | payer MEDICAID, SELFPAY ==
--- NOTE | ~2023-06-12 | US_ITS ---
EXAMINATION: US LOWER EXTREMITY VENOUS (REFLUX EXAM), BILATERAL CLINICAL INDICATION: Varicose veins of the right lower extremity COMPARISON: None. TECHNIQUE: Color flow triplex imaging and compression Doppler was performed to evaluate both the deep and the superficial systems bilaterally. To evaluate the superficial system, the examination was performed in the upright position. Color-flow Doppler ultrasound and compression ultrasound were utilized. In addition, maneuvers were utilized to demonstrate reflux. FINDINGS: RIGHT: 1. DEEP VENOUS ULTRASOUND OF THE RIGHT LOWER EXTREMITY: Common Femoral Vein: Compressible, normal respiratory variation and augmented flow. Popliteal Vein: Compressible, normal augmentation. Deep Venous Reflux: There is no evidence of reflux in the deep system in either the common femoral vein or the popliteal vein. There is no evidence of a Conroy's cyst. 2. SUPERFICIAL ULTRASOUND WITH DOPPLER OF RIGHT LOWER EXTREMITY: RIGHT GREAT SAPHENOUS VEIN: Saphenofemoral Junction: 6 mm. No reflux. Proximal Thigh: 6 mm. No reflux. Mid Thigh: 5 mm. 964 ms reflux. Above Knee: 4 mm. No reflux. Below Knee: 4 mm. No reflux. Mid Calf: 2 mm. No reflux. Ankle: 2 mm. No reflux. DUPLICATED GREAT SAPHENOUS VEIN: None RIGHT SMALL SAPHENOUS VEIN: Proximal: 2 mm. No reflux. Distal: 2 mm. No reflux. PERFORATORS: None. LEFT: 1. DEEP VENOUS ULTRASOUND OF THE LEFT LOWER EXTREMITY: Common Femoral Vein: Compressible, normal respiratory variation and augmented flow. Popliteal Vein: Compressible, normal augmentation. Deep Venous Reflux: There is no evidence of reflux in the deep system in either the common femoral vein or the popliteal vein. There is no evidence of a Conroy's cyst. 2. SUPERFICIAL ULTRASOUND WITH DOPPLER OF LEFT LOWER EXTREMITY: LEFT GREAT SAPHENOUS VEIN: Saphenofemoral Junction: 7 mm. No reflux. Proximal Thigh: 9 mm. No reflux. Mid Thigh: 4 mm. No reflux. Above Knee: 4 mm. No reflux. Below Knee: 4 mm. No reflux. Mid Calf: 2 mm. No reflux. Ankle: 2 mm. 820 ms reflux. DUPLICATED GREAT SAPHENOUS VEIN: None LEFT SMALL SAPHENOUS VEIN: Proximal: 2 mm. No reflux. Distal: 2 mm. No reflux. PERFORATORS: None. US/US venous duplex LE BI IMPRESSION: 1. Prolonged segmental reflux within the left great saphenous vein at the level of the ankle and right great saphenous vein at the level of the mid thigh. 2. No evidence of lower extremity DVT. Abnormal lower extremity venous reflux times: Superficial and deep calf veins: >500 ms Femoropopliteal veins: >1000 ms Perforating veins: >350 ms Patrick N, Jose E J, Matteo L, Blade AK, Naseem SS, Wendie Moran, Marycarmen WH. Definition of venous reflux in lower-extremity veins.J Vasc Surg. 2003; [id number].
== END 2023-06-12 12:59 | disposition home or self-care (01) ==
LOC: HO.US 12:58
PROVIDERS: PCP Internal Medicine; Visit Provider Surgery Vascular Surgery
DX: I83.11 Varicose veins of right lower extremity with inflammation (principal)
CPT/HCPCS: 93970

== ENCOUNTER 2023-07-09 14:11 | Outpatient (AMB) | payer MEDICAID, SELFPAY ==
--- NOTE | 2023-07-09 14:12 | MHC.OFFVIS ---
Intake Vital Signs 07/09/23 14:14 Height 5 ft Weight 195 lb BMI 38.1 Intake Visit Reasons: follow up s/p US 06/12/23 Intake Note: follow up US 06/12/23 for bilateral LE VV Right LE worse than Left LE, does have a cluster of VV on Right calf. Pt states she gets LE swelling. States her legs feel worse when she is on her feet all day and elevation only helps slightly. Pt has been wearing compression stockings. Pt also has discoloration on her Right ankle that has been there for many years Accompanied by: Self / Same As Patient Allergies No Known Allergies Allergy (Verified 07/09/23 14:17) HPI follow up s/p US 06/12/23 HPI Details Very pleasant 43-year-old female presents for follow-up regarding lower extremity swelling and discomfort. She has had venous insufficiency testing. She has been using compression with minimal relief. 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 Also in particular she complains of focal pain on the right knee. She now presents for follow-up. [facility] Medical History Obesity Endometrial adenocarcinoma Abnormal uterine bleeding (AUB) Acid reflux Iron deficiency Thrombocytosis Acute GI bleeding Anemia Back pain History of kidney stones Surgical History H/O: hysterectomy History of lithotripsy S/P cystoscopy with ureteral stent placement S/P tubal ligation History of Family History Mother Diabetes High blood pressure High cholesterol Father High blood pressure Social History Household Members: Family Housing: House Do you presently have visiting nurse or other home services: No Alcohol intake: never Patient Tobacco Use Status: Never used Tobacco e-Cigarette/Vaping Use: Never Used Second Hand Smoke Exposure: No service: No Current occupational status: unemployed Gender identity: Female Female Reproductive History Menstrual Age of Menarche: 11 Review of Systems Const All systems reviewed & are unremarkable except as noted in HPI and below Reports no additional complaints ENT Reports Normal hearing present Card Denies chest pain, Denies chest pain at rest, Denies chest pain with activity and Denies pedal edema Resp Denies cough GI Denies abdominal pain Musc Denies abnormal gait, Denies muscle cramps and Denies radiating pain into limb Skin/Breast Denies skin ulcer and Denies wounds Neuro Reports Normal hearing present and Denies abnormal gait Psych Reports no additional complaints Physical Exam Vital Signs: BMI result Body Mass Index 38.1 Const General: cooperative, healthy appearing and comfortable Orientation/consciousness: oriented to person, oriented to place and oriented to time HEENT Head: Yes normal to inspection Neck Neck: Yes normal visual inspection Carotids: no bruits Chest Chest palpation & inspection: normal inspection of the chest Resp Effort & Inspection: normal respiratory effort and able to speak in complete sentences Auscultation: clear to auscultation bilaterally, no crackles, no rales, no rhonchi and no wheezes Cardio Rate: regular rate Rhythm: regular rhythm Heart sounds: S1 normal heart sound present and S2 normal heart sound present Bruits: no carotid bruits Peripheral pulses: Peripheral pulses 2+ throughout GI Inspection: Yes normal to inspection Skin Wounds: no wounds Hair: normal Neuro General: oriented to person, oriented to place and oriented to time Cranial nerves: Yes CN's II-XII intact bilaterally and Yes Normal hearing present Cognition (Neuro): normal cognition Motor exam (neuro): 5/5 motor strength present throughout Extrem Other: venous exam: No significant superficial varicosities or spider telangiectasias, minimal edema General: No clubbing, No cyanosis and No edema Psych Appearance: grossly normal Mental Status: mental status grossly normal Speech and movement: Normal speech and movement present Results Reviewed Results Reviewed: Brief summary of venous insufficiency testing is as follows: right great saphenous vein: negative right small saphenous vein: negative right accessory vein: none present left great saphenous vein: negative left small saphenous vein: negative left accessory vein: none present Please note there is no evidence of any venous aneurysms or significant tortuosity Assessment & Plan Assessment & Plan (1) Varicose veins of right lower extremity with inflammation: Code(s): I83.11 - Varicose veins of right lower extremity with inflammation Plan: In short patient is negative for any significant venous insufficiency. She does have some mild superficial varicosities. I do not believe this is the source of her pain. I do feel this is more related to the osteoarthritis of her right knee. We did discuss routine conservative measures including compression elevation and exercise. She will follow up with us on an as-needed basis. Thank you for allowing us to assist in her care. If there are any questions or concerns please do not hesitate to contact us. Coding Level of Care Code Est Pt Level 4 (36623) Diagnoses Varicose veins of right lower extremity with inflammation I83.11
[2023-07-09 14:14] VITALS: BMI 38.1
== END 2023-07-09 14:41 | disposition home or self-care (01) ==
PROVIDERS: PCP Internal Medicine; Visit Provider Surgery Vascular Surgery
DX: I83.11 Varicose veins of right lower extremity with inflammation (principal)
CPT/HCPCS: 99213

== ENCOUNTER → 2023-07-09 14:11 | Outpatient (BNVA) | payer MEDICAID, SELFPAY | PROVIDERS: PCP Internal Medicine; Visit Provider Surgery Vascular Surgery | DX: I83.11 Varicose veins of right lower extremity with inflammation (principal) | CPT/HCPCS: 99212 ==

== ENCOUNTER 2024-02-03 11:16 | Outpatient (REF) | payer MEDICAID, SELFPAY | END 2024-02-03 11:17 | disposition home or self-care (01) | LOC: HO.MAMMO 11:16 | PROVIDERS: PCP Internal Medicine; Visit Provider Internal Medicine | DX: Z12.31 Encounter for screening mammogram for malignant neoplasm of breast (principal) | CPT/HCPCS: 77063; 77067 ==

== ENCOUNTER → 2024-02-03 11:45 | Outpatient (BNV) | payer MEDICAID, SELFPAY | PROVIDERS: PCP Internal Medicine; Visit Provider Radiology Diagnostic Radiology | DX: Z12.31 Encounter for screening mammogram for malignant neoplasm of breast (principal) | CPT/HCPCS: 77063; 77067 ==

== ENCOUNTER 2024-02-07 10:39 | Outpatient (REF) | payer MEDICAID, SELFPAY ==
[2024-02-13 23:29] LABS: HPV mRNA E6/E7 rflx Not Detected (Not Detected)
== END 2024-02-07 10:40 | disposition home or self-care (01) ==
LOC: HO.LNP 10:39
PROVIDERS: PCP Internal Medicine; Visit Provider Advanced Practice Midwife
DX: Z12.4 Encounter for screening for malignant neoplasm of cervix (principal); Z11.51 Encounter for screening for human papillomavirus (HPV)
CPT/HCPCS: 87624; 88142; 99396

== ENCOUNTER 2024-02-07 10:39 | Outpatient (AMB) | payer MEDICAID, SELFPAY ==
[2024-02-07 10:46] VITALS: BP 126/80; BMI 37.9
--- NOTE | 2024-02-07 10:46 | A.OFFVIS_ITS ---
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 She is feeling well and doing well. She had hysterectomy in 2020 for endometrial carcinoma. The surgery was done at [facility] she says she just had a follow-up with the surgeon last week and she said that everything was good and she is going to be seeing her again in 6 months. She had a history of abnormal Pap smears the Pap smear with [facility]US was just prior to the endometrial biopsy that diagnosed her cancer. Last year's Pap smear was negative (vaginal cuff we will do a Pap again this year. She just had her mammogram on Saturday. She does need to work on losing weight her knee is giving her trouble but she can walk on it. She is going to be making another appointment with Dr. Steiner, her primary care provider she could not see her because her [facility] got messed up but now it is back. [facility] Medical History Obesity Endometrial adenocarcinoma Abnormal uterine bleeding (AUB) Acid reflux Iron deficiency Thrombocytosis Acute GI bleeding Anemia Back pain History of kidney stones Surgical History H/O: hysterectomy History of lithotripsy S/P cystoscopy with ureteral stent placement S/P tubal ligation History of Family History Mother Diabetes High blood pressure High cholesterol Father High blood pressure Social History Household Members: Family Housing: House Do you presently have visiting nurse or other home services: No Alcohol intake: never Patient Tobacco Use Status: Never used Tobacco e-Cigarette/Vaping Use: Never Used Second Hand Smoke Exposure: No service: No Current occupational status: unemployed Gender identity: Female Female Reproductive History Menstrual Age of Menarche: 11 control method: permanent sterilization Total pregnancies: 3 Full term: 2 Number of Living Children: 2 Ab spontaneous: 1 Date of last pap smear: 03/23/22 (negative) History of abnormal pap smear: Yes (2020 [facility]) Physical Exam Vital Signs: Last Vital Signs BP 126/80 02/07/24 10:46 BMI result Body Mass Index 37.9 Const General: healthy appearing, comfortable, no acute distress, well developed and alert Nutritional Appearance: average body habitus and obese (central) Orientation/consciousness: patient oriented x3 Limitations: no limitations HEENT Head: Yes normocephalic Neck Neck: Yes normal visual inspection Chest Chest palpation & inspection: normal inspection of the chest Breast/axilla inspection: normal inspection of the breasts and normal inspection of the axillae Breast/axilla palpation: normal palpation of the breasts and normal palpation of the axillae Resp Effort & Inspection: normal respiratory effort GI Inspection: Yes normal to inspection, No Abdominal wall edema and No distended Palpation (GI): Soft to palpation and nontender General: Yes bladder normal to palpation External Female Exam: normal external appearance and normal appearance of the urethra Speculum Exam - Vagina: normal appearance of the vagina, normal palpation and normal vaginal discharge Speculum Exam - Cervix: normal appearance of the cervix, normal palpation and nontender Bimanual exam- vagina & uterus: normal bimanual exam, normal palpation, uterine size normal, bladder normal to palpation, consistency normal, normal palpation, uterine mobility normal, uterine shape normal, No Cervical tenderness present, non-tender and no cervical motion tenderness Bimanual Exam- Adnexa, other: normal adnexae, no masses, normal and No adnexal tenderness Neuro General: patient oriented x3 Results Reviewed Results Reviewed: Name: Shaniqua Pardo Age/Sex: 40/F Attending: Antonietta Davis CNM : 1980 Submitted by: Antonietta Davis CNM Copies to: Ellis Diego MD MR #: [id number] Status: DEP REF Collected: 01/24/21 Location: .LAB Received: 01/25/21 Interpretation General Category: Epithelial cell abnormality. Adequacy: Endocervical component present. Interpretation: Atypical squamous cells of undetermined significance. HPV mRNA E6/E7: NOT DETECTED This assay detects E6/E7 viral messenger RNA (mRNA) from 14 high-risk HPV types (16, 18, 31, 33, 35, 39, 45, 51, 52, 56, 58, 59, 66, 68) HPV testing performed by [facility], [place], [place]. See reference laboratory portion of the EMR for entire report. Clinical Information LMP: 01/16/21 Previous PAP test: 2018, Unknown Findings Material Received ThinPrep Cervical Copies To Ellis Diego MD [address] [place] [address] Drive [address] [place] [address] Antonietta Davis CNM [address] [place] [address] Dr. [address] [place] [address] Electronically Signed By: Matheus Ma MD 02/01/21 4449 The Pap Test is a screening procedure with the inherent possibility of both false negative and false positive results. Results should be interpreted in the context of historic and current clinical findings. Reliability of the Pap Test is enhanced by performing the test on a regular repetitive basis. Patient: Shaniqua Pardo Age/Sex: 40/F MR#: [id number] Page 1 of 1 bartolome: Shaniqua Pardo Age/Sex: 42/F Attending: Antonietta Davis CNM : 1980 Submitted by: Antonietta Davis CNM Copies to: MR #: [id number] Status: DEP REF Collected: 03/22/22 Location: [facility] Received: 03/23/22 Interpretation Satisfactory for evaluation. Negative for intraepithelial lesion or malignancy. HPV mRNA E6/E7: NOT DETECTED This assay detects E6/E7 viral messenger RNA (mRNA) from 14 high-risk HPV types (16, 18, 31, 33, 35, 39, 45, 51, 52, 56, 58, 59, 66, 68) HPV testing performed by [facility], [place], [place]. See reference thierry campoverde of the EMR for entire report. Clinical Information LMP: Hysterectomy Previous PAP test: 01/15, Abnormal Material Received ThinPrep-Vaginal Electronically Signed By: GARRY Lopes (ASCP) 04/13/22 1153 The Pap Test is a screening procedure with the inherent possibility of both false negative and false positive results. Results should be interpreted in the context of historic and current clinical findings. Reliability of the Pap Test is enhanced by performing the test on a regular repetitive basis. Patient: Shaniqua Pardo Age/Sex: 42/F MR#: [id number] Page 1 of 1 Name: Shaniqua Pardo Age/Sex: 40/F Attending: Antonietta Davis CNM : 1980 Submitted by: Antonietta Davis CNM Copies to: Ellis Diego MD MR #: [id number] Status: DEP REF Collected: 03/13/21 Location: [facility] Received: 03/13/21 ADDENDUM REPORT Addendum Addendum #1 By immunohistochemistry, MLH1, PMS2, MSH2 and MSH6 are all reactive in the lesional cells; this is considered the wild-type protein expression pattern (proficient MMR status). This finding is highly predictive of a microsatellite stable tumor. Correlation with the patient's presentation and family history is recommended. Technical services for immunohistochemistry studies performed at [facility] [facility] [place], [place] Electronically Signed By: Matheus Ma MD 03/30/21 3548 Diagnosis Endometrium, biopsy: Endometrial adenocarcinoma, endometrioid type, FIGO grade 2. COMMENT: By immunohistochemistry, ER and [place] are variably reactive in the tumor cells, though less so in the solid component. Immunostudies for mismatch repair genes are pending; results will be addended. Clinical History Menorrhagia, thickened endometrium on u/s Microscopic Description Microscopic sections reviewed. Material Received Endometrial biopsy Gross Description The specimen is received in formalin in a single part labeled with patient's name, date of additionally labeled ?EMB?. It consists of an aggregate of poole hemorrhagic soft tissue fragments measuring 1.5 x 1.2 by up to 0.7 cm in aggregate. The specimen is filtered through a biopsy bag and entirely submitted in 1 cassette. Patient: Shaniqua Pardo Age/Sex: 40/F MR#: [id number] Page 1 of 2 Assessment & Plan Assessment & Plan (1) Endometrial adenocarcinoma: Comment: cont to f/u with optical mechanic.. dxd 03/17, hysterectomy 04/17 at [facility]. Code(s): C54.1 - Malignant neoplasm of endometrium (2) Cervical cancer screening: Comment: 01/24/21 pap= ascus, neg hpv.,per [facility]- repeat pap in 3 yrs.,.( see adenocarcinoma -->hysterectomy 04/17./// pap of vag cuff done 03/22/22.= neg w neg HPV Code(s): Z12.4 - Encounter for screening for malignant neoplasm of cervix (3) Well woman exam with routine gynecological exam: Code(s): Z01.419 - Encounter for gynecological examination (general) (routine) without abnormal findings Plan Reviewed self-care the challenges of weight gain and her follow-up with her primary care provider and also the surgeon who did her surgery at [facility]. Discussed that she can choose 1 optical mechanic provider and does not need to what ever is better for her and so she does not end up with more bills. I did a Pap smear of her vaginal cuff area at this time. Patient states the surgeon said her cuff was good last week as well but she did not do a Pap smear. Discussed the challenges of losing weight. She is going to be making an appointment as soon as she can with her primary care provider she has not had fasting blood work in a long time. RTC 1 year unless she seeing the providers at [facility]. Coding Level of Care Code Est Pt Prev Care 40-64y(66220) Diagnoses Endometrial adenocarcinoma C54.1 Cervical cancer screening Z12.4 Well woman exam with routine gynecological exam Z01.419
== END 2024-02-07 11:54 | disposition home or self-care (01) ==
LOC: HO.HWSM 10:39
PROVIDERS: PCP Internal Medicine; Visit Provider Advanced Practice Midwife
DX: C54.1 Malignant neoplasm of endometrium (principal); Z12.4 Encounter for screening for malignant neoplasm of cervix; Z01.419 Encounter for gynecological examination (general) (routine) without abnormal findings
CPT/HCPCS: 99396

== ENCOUNTER 2024-02-12 10:45 | Outpatient (REF) | payer MEDICAID, SELFPAY ==
--- NOTE | ~2024-02-12 | XR_ITS ---
EXAMINATION: XR KNEE, RIGHT CLINICAL INFORMATION: Medial pain of one year's duration. COMPARISON: None available. TECHNIQUE: AP, lateral and tunnel views of the right knee are submitted. FINDINGS: Bony mineralization is normal. There is marked asymmetric narrowing of the medial joint space compartment. The lateral and patellofemoral joint space compartments are well-maintained. There is mild peripheral osteophyte formation of the patellofemoral compartment. No fracture, dislocation or significant joint effusion is seen. There is no foreign body. XR/XR knee RT 3V IMPRESSION: 1. 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 2. No fracture, dislocation or significant joint effusion is seen.
== END 2024-02-12 10:46 | disposition home or self-care (01) ==
LOC: HO.HHCX 10:45
PROVIDERS: Visit Provider Emergency Medicine
DX: M25.561 Pain in right knee (principal); G89.29 Other chronic pain
CPT/HCPCS: 36415; 73562; 84550; 86618

== ENCOUNTER 2024-02-12 11:13 | Outpatient (REF) | payer MEDICAID, SELFPAY ==
[2024-02-12 14:12] LABS: Uric Acid 6.4 mg/dL (2.4-5.7)
[2024-02-13 10:33] LABS: Lyme Abs Screen <0.90 index
== END 2024-02-12 11:14 | disposition home or self-care (01) ==
LOC: HO.HHCL 11:13
PROVIDERS: Visit Provider Emergency Medicine
DX: M25.561 Pain in right knee (principal); G89.29 Other chronic pain
CPT/HCPCS: 36415; 84550; 86617; 86618

== ENCOUNTER 2024-03-10 10:55 | Outpatient (AMB) | payer MEDICAID, SELFPAY ==
[2024-03-10 10:56] VITALS: BMI 37.9
--- NOTE | 2024-03-10 10:56 | A.OFFVIS_ITS ---
Vital Signs 03/10/24 10:56 Height 5 ft Weight 194 lb BMI 37.9 Intake Visit Reasons: OV - Right Knee Pain Intake Note: Shaniqua is a 43 year old female who presents with complaints of progressively worsening right knee pain and giving way. The patient states that her symptoms have gotten worse over the last year in spite of continued non operative treatments. She has failed the last 6 weeks of conservative treatment as well. She has taken Tylenol and ibuprofen which gave her minimal relief. Most of the pain is along the medial aspect of her right knee. She states that her right knee will give out several times per day. She has also used topical creams and patches which gave her no relief. Allergies No Known Allergies Allergy (Verified 03/10/24 11:02) [facility] Medical History (Updated 03/10/24 @ 12:33 by Carlin Schmitz MD) Obesity Endometrial adenocarcinoma Abnormal uterine bleeding (AUB) Acid reflux Iron deficiency Thrombocytosis Acute GI bleeding Anemia Back pain History of kidney stones Surgical History H/O: hysterectomy History of lithotripsy S/P cystoscopy with ureteral stent placement S/P tubal ligation History of Family History Mother Diabetes High blood pressure High cholesterol Father High blood pressure Social History Household Members: Family Housing: House Do you presently have visiting nurse or other home services: No Alcohol intake: never Patient Tobacco Use Status: Never used Tobacco e-Cigarette/Vaping Use: Never Used Second Hand Smoke Exposure: No service: No Current occupational status: unemployed Gender identity: Female Female Reproductive History Menstrual Age of Menarche: 11 Physical Exam Vital Signs: BMI result Body Mass Index 37.9 Const Other: Well-nourished well-developed very friendly female awake alert and oriented x3 in no acute distress Extrem Other: Bilateral lower extremity examination shows good capillary refill, no skin le sions noted, normal sensation light touch Right knee examination shows a minimal effusion, minimal crepitus with range of motion, tenderness along her medial joint line, positive Niraj's test, no i nstability Results Reviewed Results Reviewed: Standing full weight-bearing x-rays of the patient's right knee show mild joint space narrowing, no acute bony abnormalities Assessment & Plan Assessment & Plan (1) Right knee pain: Code(s): M25.561 - Pain in right knee Category: Medical Plan Ms. Pardo presents with progressively worsening right knee pain and mechanical symptoms most likely due to a tear of her medial meniscus. Thus, I will send the patient for an MRI of her right knee for further evaluation. I will see her back once the MRI is completed to discuss the findings and treatment options. Feel free to call me at any time should questions regarding her orthopedic management arise. Thank you very much for asking me to see this very friendly patient. I spent 21 minutes in reviewing the patient's records and imaging studies, seeing the patient and documenting in the medical record. Orders: Orders MR knee RT wo con Today M25.561 - Pain in right knee Coding Level of Care Code New Pt Level 2 (37063) Diagnoses Right knee pain M25.561
== END 2024-03-10 11:15 | disposition home or self-care (01) ==
PROVIDERS: PCP Internal Medicine; Referring Provider Internal Medicine; Visit Provider Orthopaedic Surgery
DX: M25.561 Pain in right knee (principal)
CPT/HCPCS: 99203

== ENCOUNTER → 2024-03-10 10:55 | Outpatient (BNVA) | payer MEDICAID, SELFPAY | PROVIDERS: PCP Internal Medicine; Visit Provider Orthopaedic Surgery | DX: M25.561 Pain in right knee (principal) | CPT/HCPCS: 99202 ==

== ENCOUNTER 2024-04-22 10:29 | Outpatient (REF) | payer MEDICAID, SELFPAY ==
--- NOTE | ~2024-04-22 | MR_ITS ---
EXAMINATION: MR KNEE WITHOUT CONTRAST, RIGHT CLINICAL INFORMATION: Knee pain. Patient reports no prior right knee surgery. COMPARISON: X-ray 02/12/2024. TECHNIQUE: MRI of the knee without contrast was performed using routine sequences on a high-field scanner. FINDINGS: MENISCI: Medial Meniscus: Complex tear of the posterior horn, which is small in caliber and extruded from the joint. Mild fraying of the posterior root. The body is extruded from the joint, with slightly small caliber and inner margin blunting. Lateral Meniscus: Anterior horn degeneration with mild fraying. Fraying of the posterior root/central posterior horn. LIGAMENTS: Cruciate: Intact Collateral: Intact EXTENSOR MECHANISM: Intact ARTICULAR CARTILAGE/BONE: Patellofemoral Compartment: Small marginal osteophytes. Patellar chondral heterogeneity and fissuring foci . Chondral thinning and fissuring in the medial trochlea. Medial Compartment: Joint space loss, marginal osteophytes, nonuniform cartilage loss, including high-grade/full-thickness cartilage loss in the weightbearing compartment, subchondral edema. Lateral Compartment: Mild cartilage irregularity. JOINT FLUID AND BURSAE: Small effusion, with synovitis/debris. Conroy's cyst. MR/MR knee RT wo con IMPRESSION: 1. Complex tear of the posterior horn of the medial meniscus. Mild fraying of the posterior root. The body is extruded from the joint, with slightly small caliber and inner margin blunting. 2. Anterior horn degeneration with mild fraying. Fraying of the posterior root/central posterior horn. 3. Mild patellofemoral and severe medial compartment arthritis. Mild lateral compartment arthritis. 4. Small effusion, with synovitis/debris. Conroy's cyst.
== END 2024-04-22 10:30 | disposition home or self-care (01) ==
LOC: HO.MRI 10:29
PROVIDERS: PCP Internal Medicine; Visit Provider Orthopaedic Surgery
DX: M25.561 Pain in right knee (principal)
CPT/HCPCS: 73721

== ENCOUNTER 2024-05-05 10:53 | Outpatient (AMB) | payer MEDICAID, SELFPAY ==
--- NOTE | 2024-05-05 10:53 | MHC.OFFVIS ---
Intake Visit Reasons: ov- RT knee MRI review Intake Note: Shaniqua is a 43 year old female who presents with complaints of progressively worsening right knee pain and giving way. The patient states that her symptoms have gotten worse over the last year in spite of continued non operative treatments. She has failed the last 6 weeks of conservative treatment as well. She has taken Tylenol and ibuprofen which gave her minimal relief. Most of the pain is along the medial aspect of her right knee. She states that her right knee will give out several times per day. She has also used topical creams and patches which gave her no relief. Allergies No Known Allergies Allergy (Verified 05/05/24 10:54) Medication List - Last Reconciled 05/05/24 by Carlin Schmitz MD acetaminophen (Tylenol Extra Strength) 500 mg PO Q6H PRN [Medial Patternmaker All Around Knee brace n/a] PFSH Medical History Obesity Endometrial adenocarcinoma Abnormal uterine bleeding (AUB) Acid reflux Iron deficiency Thrombocytosis Acute GI bleeding Anemia Back pain History of kidney stones Surgical History H/O: hysterectomy History of lithotripsy S/P cystoscopy with ureteral stent placement S/P tubal ligation History of Family History Mother Diabetes High blood pressure High cholesterol Father High blood pressure Social History Household Members: Family Housing: House Do you presently have visiting nurse or other home services: No Alcohol intake: never Patient Tobacco Use Status: Never used Tobacco e-Cigarette/Vaping Use: Never Used Second Hand Smoke Exposure: No service: No Current occupational status: unemployed Gender identity: Female Female Reproductive History Menstrual Age of Menarche: 11 Physical Exam Const Other: Well-nourished well-developed very friendly female awake alert and oriented x3 in no acute distress Extrem Other: Bilateral lower extremity examination shows good capillary refill, no skin lesions noted, normal sensation light touch Right knee examination shows a minimal effusion, mild crepitus with range of motion, tenderness along her medial joint line, positive Niraj's test, no instability Results Reviewed Results Reviewed: MRI of the patient's right knee shows mild to moderate degenerative changes in the medial compartment, tearing of the medial meniscus, no acute bony abnormalities Assessment & Plan Assessment & Plan (1) Right knee pain: Code(s): M25.561 - Pain in right knee Category: Medical Plan Ms. Pardo presents with right knee pain and mechanical symptoms due to degenerative joint disease as well as a medial meniscus tear. I had a lengthy discussion with the patient regarding the treatment options. We did discuss the possibility of cortisone injection therapy, arthroscopic surgery versus knee replacement surgery such as a partial versus total knee replacement. The patient wishes to hold off on replacement surgery for as long as possible. I agree with this plan. The patient does understand that she may not get 100% relief from an arthroscopic procedure depending on the severity of her degenerative changes. I do feel that the patient's mechanical symptoms would improve following arthroscopic surgery. She wishes to think over her options. If she does decide to undergo arthroscopic surgery the surgery will likely involve right knee diagnostic arthroscopy with partial medial meniscectomy. The patient will continue with her activity modifications in the meantime. Feel free to call me at any time should questions regarding her orthopedic management arise. I spent 20 minutes in reviewing the patient's records and imaging studies, seeing the patient and documenting in the medical record. Coding Level of Care Code Est Pt Level 3 (35279) Diagnoses Right knee pain M25.561
== END 2024-05-05 11:16 | disposition home or self-care (01) ==
PROVIDERS: PCP Internal Medicine; Visit Provider Orthopaedic Surgery
DX: M25.561 Pain in right knee (principal); S83.241A Other tear of medial meniscus, current injury, right knee, initial encounter
CPT/HCPCS: 99213

== ENCOUNTER → 2024-05-05 10:53 | Outpatient (BNVA) | payer MEDICAID, SELFPAY | PROVIDERS: PCP Internal Medicine; Visit Provider Orthopaedic Surgery | DX: M17.11 Unilateral primary osteoarthritis, right knee (principal); S83.241A Other tear of medial meniscus, current injury, right knee, initial encounter | CPT/HCPCS: 99212 ==

== ENCOUNTER 2024-05-11 14:45 | Outpatient (REF) | payer MEDICAID, SELFPAY ==
[2024-05-11 16:09] LABS: MANUAL DIFF FLAG NO
[2024-05-11 16:12] LABS: Basophils Absolute Auto 0.1 X10*3/uL (0.0-0.2); Basophils Percent Auto 0.5 % (0-2); Eosinophils Absolute Auto 0.1 X10*3/uL (0.0-0.4); Eosinophils Percent Auto 1.4 % (0-4); Hematocrit 36.9 % (37.0-47.0); Hemoglobin 12.5 g/dl (12.0-16.0); Imm Gran Abs Auto 0.03 X10*3/uL (0.00-0.03); Imm Gran Pct Auto 0.3 % (0.0-0.4); Lymphocytes Absolute Auto 2.7 X10*3/uL (1.2-4.9); Lymphocytes Percent Auto 27.4 % (20-40); Mean Corpuscular HGB Conc 33.9 g/dl (31.0-35.0); Mean Corpuscular Hemoglobin 30.8 pg (27.0-33.0); Mean Corpuscular Volume 90.9 fL (80.0-98.0); Mean Platelet Volume 10.2 fL (9.4-12.3); Monocytes Absolute Auto 0.9 X10*3/uL (0.1-1.2); Monocytes Percent Auto 9.3 % (2-11); Neutrophils Absolute Auto 6.1 x10*3/uL (2.0-8.3); Neutrophils Percent Auto 61.1 % (45-73); Platelet Count 373 X10*3/uL (160-400); Red Blood Count 4.06 X10*6/uL (4.20-5.50); Red Cell Distribution Width 12.8 % (11.0-16.0)
[2024-05-11 16:42] LABS: Estimated Average Glucose 111 mg/dL; Hemoglobin A1c % 5.5 % (<6.0)
[2024-05-11 17:29] LABS: Alanine Aminotransferase 16 U/L (0-31); Alkaline Phosphatase 53 U/L (39-117); Anion Gap 14 (12-20); Aspartate Amino Transferase 13 U/L (5-31); Bilirubin Total 0.2 mg/dL (0.0-1.0); Blood Urea Nitrogen 10 mg/dL (9-16); Carbon Dioxide 21 mmol/L (22-29); Chloride 107 mmol/L (96-108); Estimated Glomerular Filt Rate > 60; Glucose Random 87 mg/dL (60-115); Potassium 3.5 mmol/L (3.3-5.1); Sodium 138 mmol/L (135-145); Total Protein 7.2 g/dL (6.5-8.0)
[2024-05-11 17:34] LABS: TSH reflex Free T4 1.62 uIU/mL (0.32-4.0); Vitamin D 25-OH Total 31.6 ng/mL (>30)
== END 2024-05-11 14:46 | disposition home or self-care (01) ==
LOC: HO.HHCL 14:45
PROVIDERS: Visit Provider Internal Medicine
DX: Z00.00 Encounter for general adult medical examination without abnormal findings (principal)
CPT/HCPCS: 36415; 80053; 82306; 83036; 84443; 85025

== ENCOUNTER 2024-07-12 17:28 | Emergency (ER) | payer MEDICAID, SELFPAY ==
--- NOTE | ~2024-07-12 | CT_ITS ---
EXAMINATION: CT ABDOMEN AND PELVIS WITH CONTRAST CLINICAL INFORMATION: abdominal discomfort. COMPARISON: CT abdomen and pelvis 12/29/2021 TECHNIQUE: Multidetector volumetric images were obtained from the superior aspect of the liver through the pubic symphysis following administration 85 mL of Omnipaque 350 intravenous contrast. Sagittal and coronal reformatted images were obtained on the technologist's workstation. Oral contrast: No This CT examination was performed using dose optimization techniques as appropriate, variously including the following: *Automated exposure control *Adjustment of mA and/or kV according to patient size (this includes techniques or standardized protocols for targeted exams where dose is matched to indication/reason for exam; i.e. extremities or head) *Use of iterative reconstruction technique DLP: 709 mGy-cm FINDINGS: LUNG BASES: The visualized lung bases are unremarkable. LIVER, GALLBLADDER, AND BILIARY TREE: The liver is normal in size, shape, and attenuation. No focal hepatic lesion or biliary ductal dilatation is present. The gallbladder is unremarkable with no evidence of radiopaque gallstones, gallbladder wall thickening, or obvious pericholecystic inflammatory changes. PANCREAS: Unremarkable. SPLEEN: Unremarkable. ADRENAL GLANDS: Unremarkable. KIDNEYS AND URETERS: The kidneys are normal in size, shape, and attenuation. No hydronephrosis, hydroureter, or calculi seen. No perinephric stranding. BLADDER: Unremarkable. GASTROINTESTINAL TRACT: There is scattered stool and gas seen throughout the colon without distention. The small bowel loops are normal caliber. Appendix is not visualized. The stomach is nondistended. No free air or free fluid seen ABDOMINAL WALL: There is a small umbilical hernia containing fat.. There is a lateral abdominal wall moderate size hernia containing peritoneal fat. This could have been previous site of colostomy. LYMPH NODES: There are small left para-aortic lymph nodes. VASCULAR: Unremarkable. PELVIC VISCERA: Unremarkable. OSSEOUS STRUCTURES: No aggressive lytic or sclerotic process seen. There is posterior bridging osteophyte and spondylosis. CT/CT abdomen pelvis w IV con IMPRESSION: 1. No acute intra-abdominal process seen. 2. Mild constipation. 3. Small umbilical hernia containing fat. 4. Right lateral abdominal wall herniation of mesenteric fat. There could have been a previous colostomy tract. Correlate with clinical exam. Fleischner guidelines were followed. Electronically signed by: Shailesh Holguin MD 07/12/2024 09:55 PM EDT RP
--- NOTE | 2024-07-12 17:40 | ED_ITS ---
HPI - Abdominal Pain General Chief Complaint: Abdominal Pain Stated Complaint: shapr abd pain to lower back Time Seen by Provider: 07/12/24 19:01 Source: patient Mode of arrival: ambulatory Limitations: no limitations History of Present Illness ED Provider: Grisel HPI narrative: 44 yo F with PMHx endometrial adenocarcinoma s/p hysterectomy 3 years ago, H. pylori, LEA presenting with a 1 day history of 7/10 periumbilical abdominal pain that radiates to the back and associated with nausea and constipation. Last BM this morning, small and hard. States her oncologist mentioned an umbilical hernia in the past. Endorses chills last night but denies fevers, vomiting, diarrhea, CP, SOB, sick contacts. Related Data Previous Rx's ?Medication ?Instructions ?Recorded acetaminophen 500 mg tablet 500 mg PO Q6H PRN pain or fever 10/02/21 (Tylenol Extra Strength) #20 tabs Medial Ironworker Wire Fence Erector Knee brace #1 ea 11/22/22 ketorolac 10 mg tablet 10 mg PO TID PRN pain 5 days #15 07/12/24 tabs Allergies Allergy/AdvReac Type Severity Reaction Status Date / Time No Known Allergies Allergy Verified 07/12/24 17:46 Review of Systems Review of Systems Yes all other systems are reviewed and are negative [facility] Past Medical History Attestation statement: The following information was validated with the patient. [facility] Narrative: Laparoscopic hysterectomy 3 years ago Source: old records reviewed and nursing notes reviewed Medical History Obesity Endometrial adenocarcinoma Abnormal uterine bleeding (AUB) Acid reflux Iron deficiency Thrombocytosis Acute GI bleeding Anemia Back pain History of kidney stones Surgical History H/O: hysterectomy History of lithotripsy S/P cystoscopy with ureteral stent placement S/P tubal ligation History of Family History Family History Mother Diabetes High blood pressure High cholesterol Father High blood pressure Social History Social History Household Members: Family Housing: House Do you presently have visiting nurse or other home services: No Alcohol intake: never Patient Tobacco Use Status: Never used Tobacco e-Cigarette/Vaping Use: Never Used Second Hand Smoke Exposure: No Advance Directives: No Advance Directives Information Provided: No Do you have a plan to hurt others: No Plan service: No Current occupational status: unemployed Gender identity: Female Physical Exam ED Vital Signs: Vital Signs - 24 hr 07/12/24 17:42 07/12/24 22:20 07/12/24 23:38 Temperature 98.4 F 98.5 F 98.5 F Pulse Rate 102 H 64 64 Respiratory Rate 18 20 20 Blood Pressure 150/102 H 127/87 127/87 Pulse Oximetry 98 98 98 Oxygen Delivery Method Room Air Room Air Room Air BMI result Body Mass Index 37.1 VSS Appearance: Alert. Oriented X3. No acute distress. ? No accessory muscle use Head: Normal external exam. Normocephalic. Atraumatic. ? Eyes: PERRLA. EOMI. Conjunctiva and sclera normal. Eyelids normal. ? Neck: ?Soft full range of motion, no JVD CVS: ?Heart regular rate and rhythm no murmurs and rubs Respiratory: ?Breath sounds are clear to auscultation bilaterally. No wheezing or stridor.? No accessory muscle use noted. Abdomen: ?Soft, positive bowel sounds. Mild TTP periumbilicus. No hernia present. Skin: Skin warm and dry.? Normal skin color.? Normal skin turgor. No rashes/lesions/lacerations noted. Extremities: No lower extremity edema. ? Extremities exhibit normal range of motion.? Extremities nontender. Neuro: Oriented X 3.? No motor deficit.? No sensory deficit.? Reflexes normal Course Course Course Narrative: This is an RME performed by Ziggy Whitley CNP: Additional HPI, ROS, PE not included below will be deferred to primary provider. Patient 44-year-old female past medical history of uterine cancer S/P hysterectomy 3 years ago who presents to the emergency department for evaluation, she is Complaining of periumbilical abdominal pain radiating to her lower back, associated nausea but no vomiting denies dysuria, hematuria, urinary frequency/urgency/hesitancy. Has been experiencing constipation, last bowel movement this morning very small amount. Endorses chills last night but denies any known fever. Plan: Labs, urinalysis, KUB Reevaluation(s) Reevaluation #1: CBC unremarkable. Chemistry no acute findings needing intervention. Troponin negative. UA without infection. CT abdomen pelvis with no acute intra- abdominal process seen mild constipation small umbilical hernia containing fat right lateral abdominal wall herniation mesenteric fat there could have been a previous colostomy tract, I did discuss this with my attending who will evaluate patient at the bedside at this time. Waiting for my attending input Time: 22:57 Reevaluation #2: My attending evaluated patient small umbilical hernia pinpoint where pateint has pain. Will give her PCP and gen surgery fu. Educated patient on diagnosis and treatment plan, answered all question, patient verbalizes understanding. At this time patient will be discharged home, advised to return with new or worsening symptoms. Educated on worrisome signs and symptoms and when to return. At this time I feel comfortable discharge home. Time: 23:08 Reevaluation #3: Dr. Jesse Segura's note: I did obtain a history from the patient, she states that the pain started while she was watching television then got progressively worse. Pain is worse with bending over and with movement . She points to her umbilical area when asked to localize the pain. On exam the patient does have a small nontender umbilical hernia but just anterior to the hernia there is a small defect in the patient's abdominal muscle wall which is extremely tender to palpation. When she stands and does a Valsalva this area becomes more painful. This is consistent with a small abdominal wall hernia just above the umbilicus and I believe that this is the cause of her pain. Given the CT scan finding of no incarcerated hernia I suspect that the patient has herniation of fat. I did discuss this with the patient and the patient's . Medical Decision Making Medical Decision Making [facility] Narrative: 44 yo F presents with a 1 day history of 7/10 periumbilical abdominal pain that radiates to the back and associated with nausea and constipation. PE: abdomen soft, positive bowel sounds. Mild TTP periumbilicus. No hernia present. Hx and PE concerning for H. pylori vs. gastroenteritis vs viral illness . Less likely, incarcerated hernia, acute abdomen, perforation, obstruction, cholecysitits, appendicitis. Plan: labs, pain control, imaging\ Differential Diagnosis Differential Diagnoses: The differential diagnosis associated with the presentation includes (Hx and PE concerning for H. pylori vs. gastroenteritis. Less likely, incarcerated hernia, acute abdomen, perforation, obstruction) Admission/Observation Consideration of admission/observation: Escalation of care including admission/observation considered Lab Data MDM Lab Attestation statement: I reviewed the patient's lab results. 07/12/24 17:53 07/12/24 17:53 Labs: Lab Results 07/12/24 07/12/24 Range/Units 17:53 20:06 WBC 9.8 (4.8-10.8) X10*3/uL RBC 4.32 (4.20-5.50) X10*6/uL Hgb 13.2 (12.0-16.0) g/dl Hct 39.0 (37.0-47.0) % MCV 90.3 (80.0-98.0) fL MCH 30.6 (27.0-33.0) pg MCHC 33.8 (31.0-35.0) g/dl RDW 12.4 (11.0-16.0) % Plt Count 322 (160-400) X10*3/uL MPV 9.7 (9.4-12.3) fL Immature Gran % (Auto) 0.3 (0.0-0.4) % Neut % (Auto) 71.7 (45-73) % Lymph % (Auto) 18.7 L (20-40) % [place] % (Auto) 7.3 (2-11) % Eos % (Auto) 1.7 (0-4) % Baso % (Auto) 0.3 (0-2) % Lymph # (Auto) 1.8 (1.2-4.9) X10*3/uL [place] # (Auto) 0.7 (0.1-1.2) X10*3/uL Eos # (Auto) 0.2 (0.0-0.4) X10*3/uL Baso # (Auto) 0.0 (0.0-0.2) X10*3/uL Abs Immat Gran (auto) 0.03 (0.00-0.03) X10*3/uL Absolute Neuts (auto) 7.0 (2.0-8.3) x10*3/uL Absolute Nucleated RBC 0.000 (0.0-0.012) X10*3/uL Nucleated RBC % (auto) 0.0 (0.0-0.2) /100WBC Sodium 140 (135-145) mmol/L Potassium 3.9 (3.3-5.1) mmol/L Chloride 110 H (96-108) mmol/L Carbon Dioxide 24 (22-29) mmol/L Anion Gap 10 L (12-20) BUN 8 L (9-16) mg/dL Creatinine 0.57 (0.5-1.4) mg/dL Estim Creat Clear Calc 115.3 Estimated GFR > 60 Random Glucose 93 (60-115) mg/dL Lactic Acid 0.8 (0.5-2.0) mmol/L Calcium 8.9 (8.4-10.2) mg/dL Total Bilirubin 0.3 (0.0-1.0) mg/dL AST 10 (5-31) U/L ALT 11 (0-31) U/L Alkaline Phosphatase 50 (39-117) U/L Troponin I High Sens < 2.7 (<3.5-17.0) ng/L Total Protein 7.3 (6.5-8.0) g/dL Albumin 4.1 (3.5-5.0) g/dL Lipase 27 (8-78) U/L Urine Color Yellow Urine Appearance Clear Urine pH 6.5 (5.0-9.0) Ur Specific [place] 1.020 (1.005-1.025) Urine Protein Negative (Neg-Trace) mg/dL Urine Glucose (UA) Negative (Negative) mg/dL Urine Ketones Negative (Negative) mg/dL Urine Blood Negative (Negative) Urine Nitrite Negative (Negative) Ur Leukocyte Esterase Negative (Negative) Independent Interpretation I performed an independent interpretation of an: CT Scan ( CT/CT abdomen pelvis w IV con IMPRESSION: 1. No acute intra-abdominal process seen. 2. Mild constipation. 3. Small umbilical hernia containing fat. 4. Right lateral abdominal wall herniation of mesenteric fat. There could have been a previous colostomy tract. Correlate with clinical exam. ) Radiology Impression Discussion of test interpretation with radiology: I have reviewed the radiologist's reading. External Record Review External record reviewed: Inpatient record, Office record, Outpatient record, Prior outpatient labs, Prior outpatient radiology, Primary care record and Outside ED record Chronic Conditions Patient?s care impacted by: Cancer and Other (obesity, hpylori) Medications Administered Discontinued Medications Generic Name Dose Route Start Last Admin Trade Name Freq PRN Reason Stop Dose Admin Iohexol 85 ml 07/12/24 21:18 07/12/24 21:19 Iohexol 350 Mg/Ml 100 Ml Infus..Btl IV 07/12/24 21:19 85 ml ONCE ONE Administration Ketorolac Tromethamine 30 mg 07/12/24 21:48 07/12/24 22:11 Ketorolac Tromethamine 15 Mg/Ml Vial IVPUSH 07/12/24 21:49 30 mg ONCE ONE Administration Discharge Plan Discharge Clinical Impression: Abdominal pain, Nausea, Hernia, umbilical Patient Disposition: Home, Self-Care Instructions: Umbilical Hernia (ED), Acute Nausea and Vomiting (ED), Abdominal Pain (ED) Additional Instructions: Take your medications as prescribed. If you were prescribed antibiotics today, it is important that you take your medication to their entirety, do not skip any doses, do not finish them early. Follow-up with your primary care provider this week. Return to the emergency department with new or worsening symptoms. Such as fevers, chills, chest pain, shortness of breath, nausea, vomiting, dizziness, headache, vision changes, lethargy In case of emergency call 911 CT/CT abdomen pelvis w IV con IMPRESSION: 1. No acute intra-abdominal process seen. 2. Mild constipation. 3. Small umbilical hernia containing fat. 4. Right lateral abdominal wall herniation of mesenteric fat. There could have been a previous colostomy tract. Correlate with clinical exam. Fleischner guidelines were followed. Follow-up with your PCP and General surgery in regards to the hernias noted in your abdomen. Toradol has been sent for pain control. Toradol has been sent to your pharmacy, you tolerated this well in the department. Please take this as prescribed do not take this with ibuprofen, or other NSAIDs, do not mix this with alcohol. Side effects of this medication including increased risk for bleeding and possible kidney injury. Prescriptions: New ketorolac 10 mg tablet 10 mg PO TID PRN (Reason: pain) 5 Days Qty: 15 0RF Rx Instructions: Tolerated IM or IV in department No Action acetaminophen [Tylenol Extra Strength] 500 mg tablet 500 mg PO Q6H PRN (Reason: pain or fever) Qty: 20 0RF (DME) Medial Ironworker Wire Fence Erector Knee brace See Rx Instructions .ROUTE .MEDSUPPLY Qty: 1 0RF Rx Instructions: n/a Referrals: [facility] [place] General Surgeons [Provider Group] - 2 days Zita Gibbs MD [Primary Care Provider] - 2 days Stand Alone Forms: Work/School Release Interventions: ED Discharge Assessment Last Done: 07/12/24 23:38 Discharge Date/Time: 07/12/24 23:39 Print Language: Sinhala
[2024-07-12 17:42] VITALS: BP 150/102; PULSE 102; RESP 18; TEMP 36.9; O2SAT 98; BMI 37.1
[2024-07-12 17:58] LABS: Basophils Percent Auto 0.3 % (0-2); Eosinophils Absolute Auto 0.2 X10*3/uL (0.0-0.4); Eosinophils Percent Auto 1.7 % (0-4); Hemoglobin 13.2 g/dl (12.0-16.0); Imm Gran Abs Auto 0.03 X10*3/uL (0.00-0.03); Imm Gran Pct Auto 0.3 % (0.0-0.4); Lymphocytes Absolute Auto 1.8 X10*3/uL (1.2-4.9); Lymphocytes Percent Auto 18.7 % (20-40); MANUAL DIFF FLAG NO; Mean Corpuscular HGB Conc 33.8 g/dl (31.0-35.0); Mean Corpuscular Hemoglobin 30.6 pg (27.0-33.0); Mean Corpuscular Volume 90.3 fL (80.0-98.0); Mean Platelet Volume 9.7 fL (9.4-12.3); Monocytes Absolute Auto 0.7 X10*3/uL (0.1-1.2); Monocytes Percent Auto 7.3 % (2-11); Neutrophils Percent Auto 71.7 % (45-73); Platelet Count 322 X10*3/uL (160-400); Red Blood Count 4.32 X10*6/uL (4.20-5.50); Red Cell Distribution Width 12.4 % (11.0-16.0); White Blood Count 9.8 X10*3/uL (4.8-10.8)
[2024-07-12 18:08] LABS: Lactic Acid 0.8 mmol/L (0.5-2.0)
[2024-07-12 18:13] LABS: Alanine Aminotransferase 11 U/L (0-31); Albumin Level 4.1 g/dL (3.5-5.0); Alkaline Phosphatase 50 U/L (39-117); Anion Gap 10 (12-20); Aspartate Amino Transferase 10 U/L (5-31); Bilirubin Total 0.3 mg/dL (0.0-1.0); Blood Urea Nitrogen 8 mg/dL (9-16); Calcium 8.9 mg/dL (8.4-10.2); Carbon Dioxide 24 mmol/L (22-29); Chloride 110 mmol/L (96-108); Creatinine Clr Calc Pharmacy 115.3; Estimated Glomerular Filt Rate > 60; Glucose Random 93 mg/dL (60-115); Lipase 27 U/L (8-78); Potassium 3.9 mmol/L (3.3-5.1); Sodium 140 mmol/L (135-145); Total Protein 7.3 g/dL (6.5-8.0)
--- NOTE | 2024-07-12 19:24 | PC.NURSE ---
184 received report from Lacey DAVIS, assume care of pt at this time
[2024-07-12 20:15] LABS: Appearance Urine Clear; Color Urine Yellow; Glucose Urine UA Negative (Negative); Leukocyte Esterase Urine Negative (Negative); Nitrite Urine Negative (Negative); PH 6.5 (5.0-9.0); Urine Blood Negative (Negative); Urine Ketones Negative (Negative); Urine Protein Negative (Neg-Trace)
[2024-07-12] MEDS: iohexoL 350 MG/ML 100 ML INFUS..BTL 85 ML IV (21:19)
[2024-07-12] MEDS: Ketorolac Tromethamine 15 MG/ML VIAL 30 MG IVPUSH (22:11)
[2024-07-12 22:12] LABS: Troponin-I High Sensitivity < 2.7 ng/L (<3.5-17.0)
[2024-07-12 22:20] VITALS: BP 127/87; PULSE 64; RESP 20; TEMP 36.9; O2SAT 98
[2024-07-12 23:38] VITALS: BP 127/87; PULSE 64; RESP 20; TEMP 36.9; O2SAT 98
== END 2024-07-12 23:39 | disposition home or self-care (01) ==
PROVIDERS: Nurse Practitioner Family; Physician Assistant; Emergency Provider Emergency Medicine Emergency Medical Services; PCP Internal Medicine
DX: K42.9 Umbilical hernia without obstruction or gangrene (principal); R11.2 Nausea with vomiting, unspecified; M54.50 Low back pain, unspecified; K59.00 Constipation, unspecified; Z79.899 Other long term (current) drug therapy
CPT/HCPCS: 36415; 74177; 80053; 81003; 83605; 83690; 84484; 85025; 96374; 99284; J1885; Q9967

== ENCOUNTER 2024-07-22 11:13 | Outpatient (AMB) | payer MEDICAID, SELFPAY ==
--- NOTE | 2024-07-22 11:15 | A.OFFVIS_ITS ---
Vital Signs 07/22/24 11:25 Height 5 ft 1 in Weight 179 lb BMI 33.8 Intake Visit Reasons: umbilical hernia Intake Note: This patient presents for umbilical hernia assessment. Pt c/o; reports no complaints. 07/12/2024: Abd/pelvis CT Financing Analyst Required: No Accompanied by: Spouse Allergies No Known Allergies Allergy (Verified 07/22/24 11:26) Medication List - Last Reconciled 07/22/24 by Norman Paez MD acetaminophen (Tylenol Extra Strength) 500 mg PO Q6H PRN ketorolac 10 mg PO TID PRN 5 days [Medial Nursing Education Specialist Knee brace n/a] semaglutide (weight loss) (Wegovy) mg subcut QWEEK HPI HPI umbilical hernia: Details: [age] year old female referred for an umbilical hernia. She states that she had noticed this more than a year ago. She says that this really did not bother her at that time. However, for the past few months, she has been having significant discomfort and occasional pain with a hernia. She therefore wants this repaired. She says she is healthy otherwise. She denies significant medical problems. She had a hysterectomy 3 years ago for endometrial carcinoma. [facility] Medical History Obesity Endometrial adenocarcinoma Abnormal uterine bleeding (AUB) Acid reflux Iron deficiency Thrombocytosis Acute GI bleeding Anemia Back pain History of kidney stones Surgical History H/O: hysterectomy History of lithotripsy S/P cystoscopy with ureteral stent placement S/P tubal ligation History of Family History Mother Diabetes High blood pressure High cholesterol Father High blood pressure Social History Household Members: Family Housing: House Do you presently have visiting nurse or other home services: No Alcohol intake: never Patient Tobacco Use Status: Never used Tobacco e-Cigarette/Vaping Use: Never Used Second Hand Smoke Exposure: No service: No Current occupational status: unemployed Gender identity: Female Female Reproductive History Menstrual Age of Menarche: 11 Review of Systems Const Denies chills and Denies fever(s) Card Denies chest pain, Denies dyspnea and Denies dyspnea on exertion Resp Denies cough, Denies dyspnea and Denies dyspnea on exertion GI Denies hematochezia and Denies change in bowel habits Denies hematuria Musc Denies back pain and Denies limited range of motion Neuro Denies focal weakness and Denies convulsions Psych Denies depression and Denies mood swings Physical Exam Const Other: Obese General: comfortable and no acute distress Orientation/consciousness: patient oriented x3 Neck Neck: Yes no lymphadenopathy Resp Auscultation: clear to auscultation bilaterally Cardio Rhythm: regular rhythm GI Other: Umbilical hernia, about 2 cm, reducible Palpation (GI): Soft to palpation, nontender and no guarding Neuro General: patient oriented x3 Assessment & Plan Assessment & Plan (1) Hernia, umbilical: Code(s): K42.9 - Umbilical hernia without obstruction or gangrene Category: Medical Plan: She has a reducible umbilical hernia as described above. She wants to proceed with repair. I explained the technique of repair with possible mesh placement. I reviewed the risks including but not limited to bleeding, infections, injury to bowel, recurrence, postop pain, as well as the benefits and alternatives. I reviewed with her what to expect postoperatively. She has given consent. Coding Level of Care Code New Pt Level 3 (48706) Diagnoses Hernia, umbilical K42.9
[2024-07-22 11:25] VITALS: BMI 33.8
== END 2024-07-22 11:32 | disposition home or self-care (01) ==
PROVIDERS: PCP Internal Medicine; Referring Provider Internal Medicine; Visit Provider Surgery
DX: K42.9 Umbilical hernia without obstruction or gangrene (principal)
CPT/HCPCS: 99203

== ENCOUNTER → 2024-07-22 11:13 | Outpatient (BNVA) | payer MEDICAID, SELFPAY | PROVIDERS: PCP Internal Medicine; Visit Provider Surgery | DX: K42.9 Umbilical hernia without obstruction or gangrene (principal) | CPT/HCPCS: 99202 ==

== ENCOUNTER 2024-07-28 10:53 | Outpatient (REF) | payer MEDICAID, SELFPAY ==
[2024-07-28 12:17] LABS: Uric Acid 5.4 mg/dL (2.4-5.7)
[2024-07-28 12:46] LABS: Folate 8.4 ng/mL (> or = 4.0); Vitamin B12 370 pg/mL (200-900)
[2024-07-29 16:33] LABS: Homocysteine 8.3 umol/L (<10.4)
[2024-07-31 14:03] LABS: Methylmalonic Acid 99 nmol/L (55-335)
== END 2024-07-28 10:54 | disposition home or self-care (01) ==
LOC: HO.LAB 10:53
PROVIDERS: Emergency Medicine; PCP Internal Medicine; Visit Provider Internal Medicine
DX: R20.8 Other disturbances of skin sensation (principal); M25.561 Pain in right knee; G89.29 Other chronic pain
CPT/HCPCS: 36415; 82607; 82746; 83090; 83921; 84550

== ENCOUNTER 2024-09-08 09:56 | Day surgery (SDC) | payer MEDICAID, SELFPAY ==
[2024-08-14 13:10] VITALS: BMI 33.8
[2024-09-04 12:43] VITALS: BMI 33.8
[2024-09-08] VITALS (9 sets, daily range): BP systolic 130–160; BP diastolic 83–98; PULSE 55–76; RESP 16–18; TEMP 36.1–36.6; O2SAT 96–100; BMI 34.3
--- NOTE | 2024-09-08 10:16 | HO.ANESPROP2 ---
HPI - Anesthesia Eval Consult details Narrative: 44 yo female patient for Repair of reducibke umbilical hernia with mesh PMFSH Active Problems Active Problems: All Active Problems Right knee pain (Acute) Varicose veins of right lower extremity with inflammation (Acute) IT band syndrome (Acute) Osteoarthritis of right knee (Acute) Valgus deformity, not elsewhere classified, left knee (Acute) COVID-19 (Acute) H. pylori infection (Acute) Thickened endometrium (Acute) History of menorrhagia (Acute) Potential exposure to STD (Acute) Cervical cancer screening (Acute) Well woman exam with routine gynecological exam (Acute) Physical exam (Acute) Obesity (Acute) Endometrial adenocarcinoma (Acute) Abnormal uterine bleeding (AUB) (Acute) Iron deficiency (Acute) Thrombocytosis (Acute) Back pain (Acute) Anemia (Acute) History of lithotripsy (Acute) S/P cystoscopy with ureteral stent placement (Acute) S/P tubal ligation (Acute) Past Medical History Medical History Obesity Endometrial adenocarcinoma Abnormal uterine bleeding (AUB) Acid reflux Iron deficiency Thrombocytosis Anemia Back pain History of kidney stones Family History Family History Mother Diabetes High blood pressure High cholesterol Father High blood pressure Family history of problems with anesthesia: No Surgical History Surgical History History of esophagogastroduodenoscopy (EGD) H/O colonoscopy H/O: hysterectomy History of lithotripsy S/P cystoscopy with ureteral stent placement S/P tubal ligation History of History of Problems with Anesthesia: Yes (PONV) Social History Social History Household Members: Family Housing: House Do you presently have visiting nurse or other home services: No Alcohol intake: never Patient Tobacco Use Status: Never used Tobacco e-Cigarette/Vaping Use: Never Used Second Hand Smoke Exposure: No Advance Directives: No Advance Directives Information Provided: Yes service: No Current occupational status: unemployed Gender identity: Female Meds Allergies Allergy/AdvReac Type Severity Reaction Status Date / Time No Known Allergies Allergy Verified 07/22/24 11:26 Active Medications: Current Medications Cefazolin Sodium/Dextrose (Ancef) 2 gm in 50 mls @ 100 mls/hr IV PREOP ONE Stop: 09/08/24 10:28 Home Medications ?Medication ?Instructions ?Recorded ?Confirmed ?Last Taken ?Type semaglutide (weight loss) 0.5 0.5 mg subcut QWEEK 07/22/24 08/14/24 08/26/24 History mg/0.5 mL subcutaneous pen injector (Wegovy) Exam Height,Weight and Vital Signs: Height 5 ft 1 in Weight 81.193 kg Vital Signs Temp Pulse Resp BP Pulse Ox O2 Del Method 09/08/24 10:02 97.8 F 74 18 143/91 H 98 Room Air Airway Mallampati Class: II TM Dist: >3cm Neck ROM: Full Loose/Missing/Broken Teeth: No Heart: RRR Lungs: CTAB Assessment and Plan Assessment Anesthesia Assessment: Anesthesia Plan Discussed and Chart Reviewed Final Anesthetic Review Family History of Problems with Anesthesia: No History of Problems with Anesthesia: Yes (PONV) NPO: Yes ASA Class: II Final Preanesthetic Review: No Changes in Pt Med Stat, Meds/Allgs Chart Reviewed, Consent Obtained/Reviewed and Anes Risks/Benef Reviewed Patient Risk: Low Procedure Risk: Low Assessment/Block/Sedation in SS: Assess/Block/Sedation-SS Anesthetic Plan Anesthetic Plan: GA Disposition: Standard PACU
--- NOTE | 2024-09-08 10:20 | MHC.SHP ---
Pre-Procedural Eval Section A - 24 Hr Update-Section A only Date of Service: 09/08/24 Section B - Complete if H&P > 30 days Chief Complaint: Umbilical hernia without obstruction or gangrene Details of Present Illness: Has umbilical hernia, reducible Relevant Social History: None Present Medications: see Short Stay Collaborative assessment Medical History: Significant History (Obesity, history of endometrial carcinoma, chronic anemia) Allergies: Allergies Allergy/AdvReac Type Severity Reaction Status Date / Time No Known Allergies Allergy Verified 07/22/24 11:26 Review of Systems Sugical H&P ROS: Negative: Constitution, Cardiovascular, Respiratory and Gastrointestinal Exam Surgical H&P Exam: Normal: Heart and Normal: Lungs and Significant Findings: Abdomen (Small reducible umbilical hernia about 1 cm in diameter) Plan Diagnosis/Plan: Unchanged I have reviewed the history and physical and performed a pertinent physical examination on my patient. No changes have occurred unless specified. Time Spent With Patient Time: Total time managing care of this patient today ____ minutes.
[2024-09-08] MEDS: Lactated Ringers 1,000 ML 100 ML IVCONT (10:27)
--- NOTE | 2024-09-08 11:34 | P.OP_ITS ---
Operative Note Operative Note Date of Service: 09/08/24 Narrative: Preop diagnosis: Umbilical hernia, reducible Postop diagnosis: The same Procedure: Repair of umbilical hernia with mesh Surgeon: Norman Paez MD administrative assistant data entry: SHAKIRA Coronel The patient is a 44 year female with a reducible umbilical hernia. She wanted to proceed with repair. She understood the technique of the planned procedure as well as the risks, benefits, and alternatives. She was brought to the operating room. She was she was placed supine under general anesthesia via laryngeal mask airway. The abdomen was prepped and draped in the usual sterile fashion. A surgical time-out was done. The patient received cefazolin 2 g IV preoperatively I infiltrated the planned line of incision with lidocaine 1%. I made a supraumbilical transverse curvilinear incision using blade 15. This was carried down with electrocautery through the full-thickness of the skin and subcutaneous fat. I proceeded to dissect the umbilicus sharply with Metzenbaum scissors to lift this off as a flap. I was able to identify the hernia sac. I carefully dissected the hernia sac using Metzenbaum scissors down to the fascial defect. I had to divide adhesions surrounding this hernia sac to the subcutaneous layer. I was able to then separate the entire hernia sac from the fascial defect and this was reduced completely. The fascial defect measured about 2 cm in size. There were no bowel loops surrounding this. I applied a Verito clamp on the fascial edge. This allowed me to define the entire defect well. I positioned a small-sized Ventralex mesh this underneath the fascia. This was flattened. I secured the Prolene straps of the mesh to the fascial edge on both sides with Prolene 2 sutures. I closed the fascial defect with a [id number] Maxon 1 stitch The umbilicus was tacked down to the fascia with a Polysorb 3-0 stitch to re- create the dimple. The subdermal layer was reapposed with Polysorb 3-0 interrupted sutures. The skin was closed with subcuticular Polysorb 4-0 running stitch The area was infiltrated with Marcaine 0.5% for postop analgesia. Dressings were applied. The procedure was completed. The patient tolerated the procedure well. There were no immediate complications. Initial and final counts of sponges and instruments were correct. Estimated blood loss was less than 5 cc The patient was extubated without difficulty and transferred to the recovery room with stable vital signs
[2024-09-08] MEDS: oxyCODONE HCl Immed Release 5 MG TABLET PO (12:17)
[2024-09-08] MEDS: fentaNYL citrate/PF 100 MCG/2 ML VIAL 25 MCG IVPUSH (12:18)
== END 2024-09-08 13:18 | disposition home or self-care (01) ==
LOC: HO.SSS 09:57
PROVIDERS: PCP Internal Medicine; Visit Provider Surgery
PROC: (CPT 49591; principal; 2024-09-08 11:10)
DX: K42.9 Umbilical hernia without obstruction or gangrene (principal); K66.0 Peritoneal adhesions (postprocedural) (postinfection); E61.1 Iron deficiency; D75.839 Thrombocytosis, unspecified; D64.9 Anemia, unspecified; K21.9 Gastro-esophageal reflux disease without esophagitis; Z85.42 Personal history of malignant neoplasm of other parts of uterus; Z90.710 Acquired absence of both cervix and uterus; E66.9 Obesity, unspecified; Z68.33 Body mass index [BMI] 33.0-33.9, adult; Z87.442 Personal history of urinary calculi; Z79.85 Long-term (current) use of injectable non-insulin antidiabetic drugs; Z79.899 Other long term (current) drug therapy
CPT/HCPCS: 49591; C1781; J0131; J0690; J1100; J1885; J2003; J2405; J2704; J2795; J3010

== ENCOUNTER → 2024-09-08 09:56 | Outpatient (BNV) | payer MEDICAID, SELFPAY | PROVIDERS: PCP Internal Medicine; Visit Provider Surgery | DX: K42.9 Umbilical hernia without obstruction or gangrene (principal) | CPT/HCPCS: 49591 ==

== ENCOUNTER 2024-09-21 10:04 | Outpatient (AMB) | payer MEDICAID, SELFPAY ==
--- NOTE | 2024-09-21 10:06 | MHC.OFFVIS ---
Vital Signs 09/21/24 10:14 Height 5 ft 1 in Weight 172 lb BMI 32.5 BP 157/88 H Blood Pressure Location Rt brachial Position Sitting Pulse 67 Intake Visit Reasons: S/P umbilical hernia w/poss mesh Intake Note: This patient presents for post-op assessment status post Repair of umbilical hernia with mesh. Pt c/o; reports rash all over, ? allergic reaction to adhesive tape. Inside Phone Sales Required: No Accompanied by: Spouse Allergies No Known Allergies Allergy (Verified 09/21/24 10:07) HPI HPI S/P umbilical hernia w/poss mesh: Details: She underwent repair of an umbilical hernia with mesh last September 08, 2024. She tolerated the procedure well. She currently denies significant complaints. [facility] Medical History Obesity Endometrial adenocarcinoma Abnormal uterine bleeding (AUB) Acid reflux Iron deficiency Thrombocytosis Anemia Back pain History of kidney stones Surgical History History of umbilical hernia repair (~09/08/24) History of esophagogastroduodenoscopy (EGD) H/O colonoscopy H/O: hysterectomy History of lithotripsy S/P cystoscopy with ureteral stent placement S/P tubal ligation History of Family History Mother Diabetes High blood pressure High cholesterol Father High blood pressure Social History Household Members: Family Housing: House Do you presently have visiting nurse or other home services: No Alcohol intake: never Patient Tobacco Use Status: Never used Tobacco e-Cigarette/Vaping Use: Never Used Second Hand Smoke Exposure: No service: No Current occupational status: unemployed Gender identity: Female Female Reproductive History Menstrual Age of Menarche: 11 Review of Systems Const Denies chills and Denies fever(s) Card Denies chest pain GI Reports abdominal pain Physical Exam Const General: comfortable and no acute distress GI Other: Umbilical hernia repair site is well healed, not infected, repair intact Palpation (GI): Soft to palpation and not firm Assessment & Plan Assessment & Plan (1) Hernia, umbilical: Code(s): K42.9 - Umbilical hernia without obstruction or gangrene Category: Medical Plan: Status post repair with mesh. She is doing very well. The repair site is intact. The incisions well healed. I advised her to avoid lifting anything more than 20 lb for about 4 weeks and she can follow up on a p.r.n. basis. Coding Level of Care Code Global (17761) Diagnoses Hernia, umbilical K42.9
[2024-09-21 10:14] VITALS: BP 157/88; PULSE 67; BMI 32.5
== END 2024-09-21 10:18 | disposition home or self-care (01) ==
PROVIDERS: PCP Internal Medicine; Visit Provider Surgery
DX: K42.9 Umbilical hernia without obstruction or gangrene (principal)
CPT/HCPCS: 99212

== ENCOUNTER → 2024-09-21 10:04 | Outpatient (BNVA) | payer MEDICAID, SELFPAY | PROVIDERS: PCP Internal Medicine; Visit Provider Surgery | DX: Z09 Encounter for follow-up examination after completed treatment for conditions other than malignant neoplasm (principal); Z87.19 Personal history of other diseases of the digestive system; Z98.890 Other specified postprocedural states | CPT/HCPCS: 99212 ==

== ENCOUNTER 2024-10-22 17:09 | Emergency (ER) | payer MEDICAID, SELFPAY ==
--- NOTE | ~2024-10-22 | XR_ITS ---
EXAMINATION: XR SHOULDER, RIGHT. XR ELBOW, RIGHT. CLINICAL INFORMATION: Fall COMPARISON: None. TECHNIQUE: 3 views of the right shoulder. 3 views of the right elbow. FINDINGS: No acute fracture or malalignment. Mild degenerative spurring of the greater tuberosity of the right humeral head. No elbow joint effusion. Mild enthesopathy of the medial and lateral epicondyles. XR/XR shoulder RT min 2V IMPRESSION: No acute fracture or malalignment of the right shoulder or elbow. Electronically signed by: Spencer Uriostegui MD 10/22/2024 08:33 PM [facility]
--- NOTE | ~2024-10-22 | XR_ITS ---
EXAMINATION: XR SHOULDER, RIGHT. XR ELBOW, RIGHT. CLINICAL INFORMATION: Fall COMPARISON: None. TECHNIQUE: 3 views of the right shoulder. 3 views of the right elbow. FINDINGS: No acute fracture or malalignment. Mild degenerative spurring of the greater tuberosity of the right humeral head. No elbow joint effusion. Mild enthesopathy of the medial and lateral epicondyles. XR/XR elbow RT min 3V IMPRESSION: No acute fracture or malalignment of the right shoulder or elbow. Electronically signed by: Spencer Uriostegui MD 10/22/2024 08:33 PM [facility]
[2024-10-22 18:09] VITALS: BP 160/83; PULSE 63; RESP 18; TEMP 36.3; O2SAT 100; BMI 32.5
--- NOTE | 2024-10-22 18:09 | ED.GENADULT ---
HPI - General Adult General Chief complaint: Fall Stated complaint: fell downstairs 10/21 right arm pain Time Seen by Provider: 10/22/24 23:36 Source: patient and family Mode of arrival: ambulatory Limitations: no limitations History of Present Illness ED Provider: DR. Schneider HPI narrative: 44-year-old female came in for evaluation of right arm pain after a fall 2 days ago. Patient fell at the house 2 days ago when she was going downstairs and lost balance fell on her right side no head injury, no LOC, initially patient felt okay the next day patient started to have right shoulder, right arm, right elbow pain, and patient also has black and blue bruise on right buttock. Patient otherwise is able to ambulate. Not taking anticoagulation medication. Related Data Home Medications ?Medication ?Instructions ?Recorded ?Confirmed semaglutide (weight loss) 0.5 0.5 mg subcut QWEEK 07/22/24 08/14/24 mg/0.5 mL subcutaneous pen injector (Wegovy) Previous Rx's ?Medication ?Instructions ?Recorded acetaminophen 500 mg tablet 500 mg PO Q6H PRN pain or fever 10/02/21 (Tylenol Extra Strength) #20 tabs ibuprofen 600 mg tablet 600 mg PO Q6H PRN pain #30 tabs 09/08/24 oxycodone-acetaminophen 5 mg-325 1 tab PO Q4-6H PRN pain #20 tabs 09/08/24 mg tablet (Percocet) Allergies Allergy/AdvReac Type Severity Reaction Status Date / Time No Known Allergies Allergy Verified 10/22/24 18:11 Review of Systems Review of Systems: All other systems are reviewed and are negative Constitutional: Reports as per HPI and Reports no additional constitutional complaints Eyes: Reports as per HPI and Reports no additional eye complaints Reports system reviewed and no additional complaints, except as documented Cardiovascular: Reports as per HPI and Reports no additional cardiovascular complaints Respiratory: Reports as per HPI and Reports no additional respiratory complaints Gastrointestinal: Reports as per HPI and Reports no additional gastrointestinal complaints Genitourinary: Reports no additional female genitourinary complaints Musculoskeletal: Reports no additional musculoskeletal complaints Skin/Breast: Reports system reviewed and no additional complaints, except as docu Psychiatric: Reports no additional psychiatric complaints Endocrine: Reports no additional endocrine complaints Hematologic/Lymphatic: Reports no additional hematologic/lymphatic complaints Allergic/Immunologic: Reports no additional allergic/immunologic complaints Reports system reviewed and no additional complaints, except as documented and Reports Abnormal speech present [facility] Past Medical History Medical History Obesity Endometrial adenocarcinoma Abnormal uterine bleeding (AUB) Acid reflux Iron deficiency Thrombocytosis Anemia Back pain History of kidney stones Surgical History History of umbilical hernia repair (~09/08/24) History of esophagogastroduodenoscopy (EGD) H/O colonoscopy H/O: hysterectomy History of lithotripsy S/P cystoscopy with ureteral stent placement S/P tubal ligation History of Family History Family History Mother Diabetes High blood pressure High cholesterol Father High blood pressure Social History Social History Household Members: Family Housing: House Do you presently have visiting nurse or other home services: No Alcohol intake: never Patient Tobacco Use Status: Never used Tobacco e-Cigarette/Vaping Use: Never Used Second Hand Smoke Exposure: No service: No Current occupational status: unemployed Gender identity: Female Physical Exam ED Vital Signs: Vital Signs - 24 hr 10/22/24 18:09 10/22/24 23:40 Temperature 97.3 F 98.2 F Pulse Rate 63 72 Respiratory Rate 18 18 Blood Pressure 160/83 H 158/95 H Pulse Oximetry 100 100 Oxygen Delivery Method Room Air Room Air BMI result Body Mass Index 32.5 Vital signs have been reviewed and appear to be correct. Blood pressure elevated. Heart rate normal. Respiratory rate normal. Temperature normal. Oxygen saturation normal. Appearance: Alert. Oriented X3. No acute distress. Head: Normal external exam. Normocephalic. Atraumatic. No Andrews signs noted. No raccoon eyes noted Eyes: PERRLA. EOMI. Conjunctiva and sclera normal. Eyelids normal. ENT: TM's Normal. Pharynx normal. Uvula midline. Moist mucous membranes. No trismus noted. No drooling noted. No muffled voice noted. Neck: Normal inspection. Neck supple. FROM. No adenopathy. Thyroid Normal. No meningeal signs. No neck mass noted. CVS: Normal heart rate and rhythm. Heart sound normal. No murmurs noted. Pulses normal throughout. Respiratory: No respiratory distress. Painless inspiration. Breath sounds normal. No wheezes/rales/rhonchi noted. Chest nontender. No accessory muscle usage noted or decreased air movement noted. Abdomen: Soft and nontender. Bowel sounds normal in all 4 quadrants. No distention noted. No organomegaly noted. No visible injury noted. Back: No CVA tenderness. Full range of motion noted. Skin: Skin warm and dry. Normal skin color. Normal skin turgor. No rashes/lesions/lacerations noted. Extremities: Right upper extremity: Right shoulder with full range of motion, right elbow with full range of motion, no deformity, neurovascular intact. Right lower extremity: 10 x 10 cm area of ecchymosis on the right buttock. Neuro: Oriented X 3. Cranial nerve exam: II-XII are grossly intact No motor deficit. No sensory deficit. Reflexes normal. Course Course Course Narrative: RME, this is a rapid medical exam performed by Ron Ghosh please refer to primary provider for complete H&P- 44 year old female presents for evaluation of Right arm pain after falling one and a half days ago. Plan for x-rays of the right shoulder and wrist Reevaluation(s) Reevaluation #1: S/p mechanical fall with bruises no fracture. Time: 23:49 Medical Decision Making Differential Diagnosis Differential Diagnoses: The differential diagnosis associated with the presentation includes (Right shoulder fracture, right elbow fracture, right arm fracture, right hip fracture, intracranial bleed, cervical spine injury, chest injury, abdominal injury.) Admission/Observation Consideration of admission/observation: Escalation of care including admission/observation considered Independent Interpretation I performed an independent interpretation of an: Plain X-Ray (Right shoulder/right elbow: No acute fracture.) Radiology Impression Discussion of test interpretation with radiology: I have reviewed the radiologist's reading. Discharge Plan Discharge Clinical Impression: Contusion of right shoulder, Contusion of right elbow, Contusion of right buttock Patient Disposition: Home, Self-Care Instructions: Contusion in Adults (ED) Prescriptions: No Action acetaminophen [Tylenol Extra Strength] 500 mg tablet 500 mg PO Q6H PRN (Reason: pain or fever) Qty: 20 0RF oxycodone-acetaminophen [Percocet] 5-325 mg tablet 1 tab PO Q4-6H PRN (Reason: pain) Qty: 20 0RF Rx Instructions: Partial Fill upon patient request. ibuprofen 600 mg tablet 600 mg PO Q6H PRN (Reason: pain) Qty: 30 0RF Wegovy 0.5 mg/0.5 mL pen injector 0.5 mg subcut QWEEK Rx Instructions: takes on Wednesdays Referrals: Zita Gibbs MD [Primary Care Provider] - Print Language: Cymraes
[2024-10-22 23:40] VITALS: BP 158/95; PULSE 72; RESP 18; TEMP 36.8; O2SAT 100
--- NOTE | 2024-10-22 23:40 | MHC.EDTECH ---
Patient was brought back from the waiting room to ED8. Patient complaining of pain. Patients vitals were updated.
[2024-10-23] MEDS: Ibuprofen 800 MG TABLET PO (00:04)
[2024-10-23 00:05] VITALS: BP 158/95; PULSE 72; RESP 18; TEMP 36.8; O2SAT 100
== END 2024-10-23 00:05 | disposition home or self-care (01) ==
PROVIDERS: Emergency Provider Emergency Medicine; PCP Internal Medicine
DX: S40.011A Contusion of right shoulder, initial encounter (principal); S50.01XA Contusion of right elbow, initial encounter; S30.0XXA Contusion of lower back and pelvis, initial encounter; W10.8XXA Fall (on) (from) other stairs and steps, initial encounter; Y93.9 Activity, unspecified; Y92.008 Other place in unspecified non-institutional (private) residence as the place of occurrence of the external cause; Y99.9 Unspecified external cause status
CPT/HCPCS: 73030; 73080; 99283

== ENCOUNTER 2024-11-19 11:58 | Outpatient (REF) | payer MEDICAID, SELFPAY ==
--- NOTE | ~2024-11-19 | XR_ITS ---
EXAMINATION: XR THORACIC SPINE 2 VIEWS HISTORY: PAIN COMPARISON: There are no prior studies for comparison. FINDINGS: AP and lateral views of the thoracic spine are submitted. Osseous mineralization is normal. The vertebral bodies maintain normal height and alignment without evidence of fracture or subluxation. There is mild degenerative disc disease with disc space narrowing and osteophyte formation. The visualized paraspinal soft tissues are unremarkable. XR/XR thoracic spine 2V IMPRESSION: Mild degenerative disc disease. Electronically signed by: Gentry Pedersen MD 11/19/2024 12:21 PM [facility]
== END 2024-11-19 11:59 | disposition home or self-care (01) ==
LOC: HO.HHCX 11:58
PROVIDERS: Visit Provider Internal Medicine
DX: M54.9 Dorsalgia, unspecified (principal)
CPT/HCPCS: 72070

== ENCOUNTER → 2024-11-19 12:00 | Outpatient (BNV) | payer MEDICAID, SELFPAY | PROVIDERS: Visit Provider Radiology Diagnostic Radiology | DX: M54.6 Pain in thoracic spine (principal) | CPT/HCPCS: 72070 ==

== ENCOUNTER 2025-02-08 11:14 | Outpatient (REF) | payer MEDICAID, SELFPAY ==
--- OUTSIDE RECORDS SUMMARY | 2025-02-08 13:17 | XMS_ITS | Encounter Summary ---
Author Organization [employer] Address [address] [facility] [address] [place] [address] Care Team Providers Care Director Of Sustainability Programs Name Role Phone Zita Gibbs MD Primary Care Provide r Reason for Visit * Reason Onset Date Comments Med Refill 11/27/2024 Encounter Details Date Type Department Care Team (Late st Contact Info) Description 11/27/[address] [facility] [address] [place] [address] Zita Gibbs MD [address] [place], [place] [phone] Class 1 obesity due to excess calories without serious comorbidity with body mass index (BMI) of 32.0 to 32.9 in adult Social History Tobacco Use Types Packs/Day Years Used Date Smoking Tobacco: Never Passive Smoke Exposure: Never Smokeless Tobacco: Never Alcohol Use Standard Drinks/Week Comments Never 0 (1 standard drink = 0.6 oz pur e alcohol) Depression Answer Date Recorded Patient Health Questionnaire-9 Score 0 04/29/2024 Patient Health Questionnaire-9 Score 0 04/29/2024 Last PHQ-9: Questionnaire Data Not on file 0 04/29/2024 Housing Stability Answer Date Recorded What is your housing situation today? I have vargas gilman 04/29/[address] you li ve. Do you have problems with any of the following? None of the above 04/29/2024 Food Insecurity Answer Date Recorded Within the past 12 months, y ou worried that your food would run out before you got money to buy more: Never True 04/29/2024 Within the past 12 months,th e food you bought just didn't last and you didn't have enough money to get more: Never True 12/2023 Transportation Answer Date Recorded In the past 12 months, has l ack of transportation kept you from medical appts, meetings, work or from getting things needed for daily living? No 04/29/2024 Utilities Answer Date Recorded In the past 12 months, has t he electric, gas, oil or water company threatened to shut off services in your home? No 04/29/2024 Depression Answer Date Recorded Patient Health Questionnaire-2 Score 0 04/29/2024 Internet Access Answer Date Recorded Internet Access Q1 Yes 06/29/2024 Internet Access Q2 Not on file 06/29/2024 Comments Unknown Sex and Gender Information Value Date Recorded Sex Assigned at Female 08/27/2022 10:15 AM EDT Legal Sex Female 10:15 AM EDT Gender Identity Female 08/27/2022 10:15 AM EDT Sexual Orientation Straight 08/27/2022 10 :15 AM EDT documented as of this encounter Plan of Treatment Upcoming Encounters Date Type Department Care Team (Late st Contact Info) Description 02/18/2025 10:45 AM EDT Office Visit [facility] [address] [place] [phone] Zita Gibbs MD [address] [place] [address] 05/05/2025 10:45 AM EDT Office Visit [facility] [address] [place] [phone] Zita Gibbs MD [address] [place] [address] 05/27/2025 11:15 AM EDT Office Visit [facility] [address] [place], [place] [phone] Yue Cardoso, OD [address] [place] [address] documented as of this encounter Visit Diagnoses Diagnosis Class 1 obesity due to excess calories without serious comorbidity with body mass index (BMI) of 32.0 to 32.9 in adult documented in this encounter Additional Health Concerns Assessment Noted Time PHQ-9 Depression Total Score: 0 04/29/20 24 11:03 AM EDT documented as of this encounter Care Teams Director Of Sustainability Programs Relationship Specialty Start Date End Date Zita Gibbs MD [address] [place] [address] PCP - General Family Medicine 05/10/22 documented as of this encounter
--- OUTSIDE RECORDS SUMMARY | 2025-02-08 13:17 | XMS_ITS | Encounter Summary ---
Author Organization [employer] Address [address] [facility] 7[address] [place] [address] Care Team Providers Care Biomedical Engineering Internship Name Role Phone Zita Gibbs MD Primary Care Provide r Encounter Details Date Type Department Care Team (Late st Contact Info) Description 07/16/2024 Orders Only [facility] [address] [place], [place] [phone] Zita Gibbs MD [address] [place] [address] Class 2 obesity due to excess calories without serious comorbidity with body mass index (BMI) of 38.0 to 38.9 in adult Social History Tobacco Use Types [...] Description 02/18/2025 10:45 AM EDT Office Visit [facility] [address] [place] [phone] Zita Gibbs MD [address] [place] [address] 05/05/2025 10:45 AM EDT Office Visit [facility] [address] [place] [phone] Zita Gibbs MD [address] [place] [address] 05/27/2025 11:15 AM EDT Office Visit [facility] [address] [place] [address] Yue Cardoso, OD [address] [place] [address] documented as of this encounter Visit Diagnoses Diagnosis Class 2 obesity due to excess calories without serious comorbidity with body mass index (BMI) of 38.0 to 38.9 in adult documented in this encounter Additional Health Concerns Assessment Noted Time PHQ-9 Depression Total Score: 0 04/29/20 24 11:03 AM EDT documented as of this encounter Care Teams Biomedical Engineering Internship Relationship Specialty Start Date End Date Zita Gibbs MD [address] [place] [address] PCP - General Family Medicine 05/10/22 documented as of this encounter
--- OUTSIDE RECORDS SUMMARY | 2025-02-08 13:17 | XMS_ITS | Encounter Summary ---
Author Organization [employer] Address [address] [facility] 7[address] [place] [address] Care Team Providers Care Bridges Supervisor Name Role Phone Ziat Gibbs MD Primary Care Provide r Reason for Visit * Reason Comments Med Change Request Encounter Details Date Type Department Care Team ([facility] Contact Info) Description 07/16/2024 Refill [facility] [address] [place] [address] Zita Gibbs MD [address] [place] [address] Class 2 obesity due to excess calories without serious comorbidity with body mass index (BMI) of 39.0 to 39.9 in adult Social History Tobacco Use Types [...] Description 02/18/2025 10:45 AM EDT Office Visit [facility] [address] [place] [address] Zita Gibbs MD [address] [place] [address] 05/05/2025 10:45 AM EDT Office Visit [facility] [address] [place] [address] Zita Gibbs MD [address] [place] [address] 05/27/2025 11:15 AM EDT Office Visit [facility] [address] [place], [place] [phone] Yue Cardoso, OD [address] [place] [address] documented as of this encounter Visit Diagnoses Diagnosis Class 2 obesity due to excess calories without serious comorbidity with body mass index (BMI) of 39.0 to 39.9 in adult documented in this encounter Additional Health Concerns Assessment Noted Time PHQ-9 Depression Total Score: 0 04/29/20 24 11:03 AM EDT documented as of this encounter Care Teams Bridges Supervisor Relationship Specialty Start Date End Date Zita Gibbs MD [address] [place] [address] PCP - General Family Medicine 05/10/22 documented as of this encounter
--- OUTSIDE RECORDS SUMMARY | 2025-02-08 13:17 | XMS_ITS | Encounter Summary ---
Author Organization [employer] Address [address] [facility] [address] [place] [address] Care Team Providers Care Coffee Plantation Worker Name Role Phone Zita Gibbs MD Primary Care Provide r Reason for Visit * Reason Comments Med Refill Encounter Details Date Type Department Care Team ([facility] Contact Info) Description 11/17/2024 Refill [facility] [address] [place], [place] [phone] Zita Gibbs MD [address] [place], [place] [phone] Social History Tobacco Use Types Packs/Day Years [...] Description 02/18/2025 10:45 AM EDT Office Visit [facility] [address] [place] [phone] Zita Gibbs MD [address] [place] [address] 05/05/2025 10:45 AM EDT Office Visit [facility] [address] [place] [phone] Zita Gibbs MD [address] [place] [address] 05/27/2025 11:15 AM EDT Office Visit [facility] [address] [place] [address] Yue Cardoso, OD [address] [place] [address] documented as of this encounter Visit Diagnoses Not on filedocumented in this encounter Additional Health Concerns Assessment Noted Time PHQ-9 Depression Total Score: 0 04/29/20 24 11:03 AM EDT documented as of this encounter Care Teams Coffee Plantation Worker Relationship Specialty Start Date End Date Zita Gibbs MD [address] [place] [address] PCP - General Family Medicine 05/10/22 documented as of this encounter
--- OUTSIDE RECORDS SUMMARY | 2025-02-08 13:17 | XMS_ITS | Encounter Summary ---
Author Organization [employer] Address [address] [facility] [address] [place] [address] Care Team Providers Care Design Supervisor Name Role Phone Zita Gibbs MD Primary Care Provide r Reason for Visit * Reason Onset Date Comments Med Refill 11/08/2024 Encounter Details Date Type Department Care Team ([facility] st Contact Info) Description 11/08/2024 Refill [facility] MEDICINE [address] [place] [address] Zita Gibbs MD [address] [place] [address] Social History Tobacco Use Types Packs/Day Years [...] your housing situation today? I have vargas sing 04/29/[address] you li [...] Description 02/18/2025 10:45 AM EDT Office Visit [facility] MEDICINE [address] [place] [address] Zita Gibbs MD [address] [place] [address] 05/05/2025 10:45 AM EDT Office Visit [facility] MEDICINE [address] [place] [address] Zita Gibbs MD [address] [place] [address] 05/27/2025 11:15 AM EDT Office Visit [facility] OPTOMETRY [address] [place] [address] Yue Cardoso, OD [address] [place] [address] documented as of this encounter Visit Diagnoses Not on filedocumented in this encounter Additional Health Concerns Assessment Noted Time PHQ-9 Depression Total Score: 0 04/29/20 24 11:03 AM EDT documented as of this encounter Care Teams Design Supervisor Relationship Specialty Start Date End Date Zita Gibbs MD [address] [place] [address] PCP - General Family Medicine 05/10/22 documented as of this encounter
--- OUTSIDE RECORDS SUMMARY | 2025-02-08 13:17 | XMS_ITS | Encounter Summary ---
Author Organization [employer] Address [address] [facility] [address] [place] [address] Care Team Providers Care Military Technology Specialist Name Role Phone Zita Gibbs MD Primary Care Provide r Reason for Visit * Reason Comments Med Refill Encounter Details Date Type Department Care Team ([facility] st Contact Info) Description 07/27/2024 Refill [facility] MEDICINE [address] [place], [place] [phone] Zita Gibbs MD [address] [place] [address] Class 2 obesity due to excess calories [...] Description 02/18/2025 10:45 AM EDT Office Visit [facility] MEDICINE [address] [place] [address] Zita Gibbs MD [address] [place] [address] 05/05/2025 10:45 AM EDT Office Visit [facility] MEDICINE [address] [place] [address] Zita Gibbs MD [address] [place] [address] 05/27/2025 11:15 AM EDT Office Visit [facility] OPTOMETRY [address] [place], [place] [phone] Yue Cardoso, OD [address] [place] [address] documented as of this encounter Visit Diagnoses Diagnosis Class 2 obesity due to excess calories without serious comorbidity with body mass index (BMI) of 38.0 to 38.9 in adult documented in this encounter Additional Health Concerns Assessment Noted Time PHQ-9 Depression Total Score: 0 04/29/20 24 11:03 AM EDT documented as of this encounter Care Teams Military Technology Specialist Relationship Specialty Start Date End Date Zita Gibbs MD [address] [place] [address] PCP - General Family Medicine 05/10/22 documented as of this encounter
--- OUTSIDE RECORDS SUMMARY | 2025-02-08 13:17 | XMS_ITS | Clinical Summary ---
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 Active Blood Pressure kit 1 each 2 times daily. 1 kit 024 2024 Active lidocaine (Lidoderm) 5 % patch Apply 1 patch topically in the morning. Remove & discard patch within 12 hours or as directed by MD. 30 patch 2 024 2024 Active cyclobenzaprine (Flexeril) 10 MG tabletIndicatio ns:Chronic midline low back pain without sciatica Take 1 tablet (10 mg) by mouth at bedtime. 30 tablet 1 Active Semaglutide-Yg ght Management (Wegovy) 0.25 MG/0.5ML solution auto-injectorIn dications:Class 2 obesity due to excess calories without serious comorbidity with body mass index (BMI) of 38.0 to 38.9 in adult Inject 0.25 mg under the skin 1 (one) time per week. 0.5 mL 024 Active Semaglutide-Yg ght Management (Wegovy) 0.5 MG/0.5ML solution auto-injectorIn dications:Class 2 obesity due to excess calories without serious comorbidity with body mass index (BMI) of 38.0 to 38.9 in adult Inject 0.5 mg under the skin 1 (one) time per week. 0.5 mL 024 Active Semaglutide-Yg ght Management (Wegovy) 1 MG/0.5ML solution auto-injectorIn dications:Class 2 obesity due to excess calories without serious comorbidity with body mass index (BMI) of 39.0 to 39.9 in adult INJECT ONE PEN SUBCUTANEOUSLY ONCE A WEEK 2 mL 024 Active Semaglutide-Yg ght Management (Wegovy) 1.7 MG/0.75ML solution auto-injectorIn dications:Class 2 obesity due to excess calories without serious comorbidity with body mass index (BMI) of 39.0 to 39.9 in adult Inject 1.7 mg under the skin 1 (one) time per week. 0.75 mL 024 Active Semaglutide-Yg ght Management (Wegovy) 2.4 MG/0.75ML solution auto-injector INJECT ONE PEN (=2.4 MG) SUBCUTANEOUSLY ONCE A WEEK 3 mL 024 Active Tirzepatide-Yg ght Management (Zepbound) 2.5 MG/0.5ML solution auto-injectorIn dications:Class 2 obesity due to excess calories without serious comorbidity with body mass index (BMI) of 39.0 to 39.9 in adult Inject 0.5 mL (2.5 mg) under the skin 1 (one) time per week. 2 mL 024 Active gabapentin (Neurontin) 300 MG capsuleIndicati ons:Upper back pain Take 1 capsule (300 mg) by mouth at bedtime. 30 capsule 2 025 2025 Active Tirzepatide-Yg ght Management (Zepbound) 2.5 MG/0.5ML solution auto-injectorIn dications:Class 1 obesity due to excess calories without serious comorbidity with body mass index (BMI) of 32.0 to 32.9 in adult Inject 0.5 mL (2.5 mg) under the skin 1 (one) time per week. 2 mL Active amLODIPine (Norvasc) 5 MG tabletIndicatio ns:Primary hypertension Take 1 tablet (5 mg) by mouth Once per day. 30 tablet 11 025 2025 Active acetaminophen (Tylenol) 500 MG tabletIndicatio ns:Chronic midline low back pain without sciatica TAKE 2 TABLETS BY MOUTH EVERY 6 HOURS IF NEEDED FOR MODERATE PAIN OR FEVER 50 tablet 025 Active ibuprofen 400 MG tablet TAKE 1 TABLET BY MOUTH EVERY 6 HOURS IF NEEDED FOR MODERATE PAIN OR FEVER 30 tablet 025 Active Tirzepatide-Yg ght Management (Zepbound) 7.5 MG/0.5ML solution auto-injector Inject 0.5 mL (7.5 mg) under the skin every 7 (seven) days. 2 mL 025 Active Tirzepatide-Yg ght Management (Zepbound) 5 MG/0.5ML solution auto-injector Inject 0.5 mL (5 mg) under the skin 1 (one) time per week. INJECT ONE PEN (= 0.5 MG) SUBCUTANEOUSLY ONCE A WEEK 2 mL 025 2024 Discontinued Active Problems Problem Noted Date Diagnosed Date Class 1 obesity due to exces s calories without serious comorbidity with body mass index (BMI) of 32.0 to 32.9 in adult 11/19/2024 Assessment & Plan (11/19/2024 12:14 PM EST): I will prescribe for patient weight loss medication zepbound Advised to continue with healthy diet and cardiovascular exercise Upper back pain 11/19/2024 Assessment & Plan (11/19/2024 12:15 PM EST): X-ray ordered patient will be contacted with results We will try with gabapentin 300 mg at bedtime, side effects were discussed with patient including somnolence, I advised not to drive while taking this medication Primary hypertension 11/19/2024 Assessment & Plan (11/19/2024 12:13 PM EST): I will start patient on amlodipine 5 mg daily, plan is for her to check her blood pressure at home for the next 2 weeks and then come back for nurse visit with log, if blood pressure is not at goal plan is to increase her amlodipine dose to 10 mg daily I advised patient low-sodium diet and to continue with weight loss Class 2 obesity due to exces s calories without serious comorbidity in adult 07/16/2024 Assessment & Plan (07/16/2024 12:12 PM EDT): I will increase her semaglutide to 1mg weekly Burning sensation 07/16/2024 Blurry vision 04/29/2024 Chronic midline low back pain without sciatica 0 03/09/2024 Assessment & Plan (03/09/2024 4:34 PM EDT): Apply heat on affected area Acetaminophen PRN Gentle stretching Flexeril at bed time (patient is aware of side effect somnolence) If pain persists or gets worse, I advise to reports back White coat syndrome without diagnosis of hyperte nsion 03/09/2024 Assessment & Plan (03/09/2024 4:31 PM EDT): Blood pressure is normal at home but when patient comes to the office it gets high, I advise low Na diet and weight reduction to avoid hypertension Encounter for preventative adult health care exa mination 04/08/2023 Assessment & Plan (04/29/2024 1:40 PM EDT): See HPI Assessment & Plan (04/08/2023 3:41 PM EDT): Please refer to HPI Pain due to varicose veins of lower extremity Colon cancer screening 04/08/2023 Anemia 11/27/2022 Back pain 11/27/2022 Chronic pain of right knee 11/27/2022 Assessment & Plan (04/29/2024 1:39 PM EDT): Continue to follow with orthopedics Assessment & Plan (03/09/2024 4:32 PM EDT): C/w acetaminophen PRN, patient has orthopedics appointment tomorrow 03/10/24 I advise not to miss her appointment Endometrial ca 11/27/2022 Iron deficiency 11/27/2022 Thrombocytosis 11/27/2022 Vitamin D deficiency 11/27/2022 Acid reflux 11/27/2022 Encounters Date Type Department Care Team Description 01/26/2025 Refill [facility] MEDICINE [address] [place] [address] Zita Gibbs MD 01/08/2025 Population Health Risk Score [facility] () [address] [phone] Provider, Population Health Generic 01/02/2025 Refill [facility] MEDICINE [address] [place] [address] Zita Gibbs MD Chronic midline low back pain without sciatica 12/14/2024 Refill [facility] MED[facility]INE [address] [place] [address] Zita Gibbs MD Class 1 obesity due to excess calories without serious comorbidity with body mass index (BMI) of 32.0 to 32.9 in adult 11/27/2024 Refill [facility] MEDICINE [address] [place] [address] Zita Gibbs MD Class 1 obesity due to excess calories without serious comorbidity with body mass index (BMI) of 32.0 to 32.9 in adult 11/24/2024 Telephone [facility] MEDICINE [address] [place], [place] [phone] Zita Gibbs MD Paperwork/Forms; Prior Authorization ([facility] Request: Zepbound) 11/19/2024 11:00 AM EST Office Visit [facility] MEDICINE [address] [place] [address] Zita Gibbs MD Class 1 obesity due to excess calories without serious comorbidity with body mass index (BMI) of 32.0 to 32.9 in adult (Primary Dx); Upper back pain; Colon cancer screening; Primary hypertension 11/19/2024 Travel 11/17/2024 Refill [facility] MEDICINE [address] [place], [place] [phone] Zita Gibbs MD 11/13/2024 Refill [facility] MEDICINE [address] [place], [place] [phone] Zita Gibbs MD from Last 3 Months Immunizations Name Administration Dates Next Due Influenza injectable quadriv alent preservative free 08/21/2023,09/19/2020,01/08/2020 Td (adult), 5 Lf tetanus tox oid, preservative free, adsorbed 02/07/2015 Tdap 10/12/2016 Social History Tobacco Use Types Packs/Day Years Used Date Smoking Tobacco: Never Passive Smoke Exposure: Never Smokeless Tobacco: Never Tobacco Cessation:Counseling Given: Not Answered Alcohol Use Standard Drinks/Week Comments Never 0 [...] Orientation Straight 08/27/2022 10 :15 AM EDT Last Filed Vital Signs Vital Sign Reading Time Taken Comments Blood Pressure 164/96 11/19/2024 10:50 AM EST Pulse 69 11/19/2024 10:50 AM EST Temperature 36 ??C (96.8 ??F) 11/19/2024 10:50 AM EST Respiratory Rate 16 11/19/2024 10:50 AM EST Oxygen Saturation 100% 11/19/2024 10:50 AM EST Inhaled Oxygen Concentration - - Weight 73.8 kg (162 lb 9.6 oz) 11/19/2024 10:50 AM EST Height 149.9 cm (4' 11 ) 11/19/2024 10:50 AM EST Body Mass Index 32.84 11/19/2024 10:50 AM EST Plan of Treatment Upcoming Encounters Date Type Department Care Team (Late st Contact Info) Description 02/18/2025 10:45 AM EDT Office Visit [facility] MEDICINE [address] [place] [address] Zita Gibbs MD [address] [place] [address] 05/05/2025 10:45 AM EDT Office Visit [facility] MEDICINE [address] [place] [address] Zita Gibbs MD [address] [place] [address] 05/27/2025 11:15 AM EDT Office Visit [facility] OPTOMETRY [address] [place] [address] Yue Cardoso, OD [address] [place] [address] Health Maintenance Due Date Last Done Comments CT Colonography 1978 FIT DNA/Cologuard 1978 FIT 1980 FOBT 1980 Sigmoidoscopy 1980 Family Planning (PISQ) 1993 Hepatitis B Vaccines (1 of 3 - 19+ 3-dose series) 1997 COVID-19 Vaccine (2023-2 5 season) 2024 03/15/2021, 02/15/2021 Influenza Vaccine (#1) 2024 3, 09/19/2020, 01/08/2020 Mammogram 02/02/2025 02/03/2024, 12/13/2022 Alcohol/Substance Use Screening 04/29/2025 04/29/2024 Depression Screening 04/29/2025 04/29/2024, 04/29/2024 SDOH Screening 11/09/2025 11/09/2024 Tobacco Screening 11/19/2025 11/19/2024 DTaP/Tdap/Td Vaccines (2 - T d or Tdap) 10/12/2026 10/12/2016, 02/07/2015 Zoster Vaccines (1 of 2) 2028 Lipid Panel 04/08/2028 04/08/2023, 05/10/2022 Cervical Cancer Screening 02/06/2029 HPV/Cotest 02/06/2029 Pap Smear 02/06/2029 02/07/2024 Colonoscopy 01/12/2031 01/12/2021 Colorectal Cancer Screening 01/12/2031 RSV Patients and Patients Aged 60 years or older (1 - 1-dose 75+ series) 2053 HIV Screening Completed 04/08/2023 Hepatitis C Screening Completed 04/08/2023 HIB Vaccines Aged Out No longer eligi ble based on patient's age to complete this topic HPV Vaccines Aged Out No longer eligi ble based on patient's age to complete this topic Hepatitis A Vaccines Aged Out No long er eligible based on patient's age to complete this topic IPV Vaccines Aged Out No longer eligi ble based on patient's age to complete this topic Meningococcal Vaccine Aged Out No timur jay eligible based on patient's age to complete this topic Pneumococcal Vaccine: Pediatrics (0 to 5 Years) and At-Risk Patients (6 to 49) Years) Aged Out No longer eligible b ased on patient's age to complete this topic RSV under 20 months Aged Out No longe r eligible based on patient's age to complete this topic Rotavirus Vaccines Aged Out No longer eligible based on patient's age to complete this topic Procedures Procedure Name Priority Date/Time Associated Diagnosis Comments XR THORACIC SPINE 2 VIEWS Routine 11/19/2024 12:00 PM EST Upper back pain PAP SMEAR Routine 02/07/2024 11:35 AM EDT BI MAMMOGRAM SCREENING TOMOSYNTHESIS BILATERAL Routine 02/03/2024 11:34 AM EDT HEPATITIS C AB W/REFL TO HCV RNA, QN, PCR Routine 04/08/2023 3:50 PM EDT HIV 1/2 ANTIGEN/ANTIBODY, FOURTH GENERATION W/RFL Routine 04/08/2023 3:50 PM EDT LIPID PANEL, STANDARD Routine 04/08/2023 3:50 PM EDT Encounter for preventative adult health care examination HM COLONOSCOPY Routine 01/12/2021 from Last 3 Months or Most Recently Relevant to Health Maintenance Results * XR Thoracic Spine 2 Views (11/19/2024 12:00 PM EST) Anatomical Region Laterality Modality Spine, T-spine Radiographic Mila ging 11/19/2024 12:0 0 PM EST Narrative 11/19/2024 12:24 PM EST ?[facility] ?[address] ?[place] [address] ?XRay Report ? Signed ? Patient: Shaniqua Pardo ?MR#: [id number] ?? 028 ? : 1980 ?Acct:[id number] ? Age/Sex: 44 / F ?ADM Date: 11/19/24 ? Loc: HO.HHCX ? Attending Dr: Zita Agarwal MD ? Ordering Physician: Zita Gibbs MD ?? Date of Service: 11/19/24 ?? Procedure(s): XR thoracic spine 2V ?? Accession Number(s): [id number] ? cc: Zita Gibbs MD ? EXAMINATION: ??XR THORACIC SPINE 2 VIEWS ? HISTORY: PAIN ? COMPARISON: There are no prior studies for comparison. ? FINDINGS: ??AP and lateral views of the thoracic spine are submitted. ? Osseous mineralization is normal. ??The vertebral bodies maintain normal ?? height and alignment without evidence of fracture or subluxation. ? There is mild degenerative disc disease with disc space narrowing and ?? osteophyte formation. ??The visualized paraspinal soft tissues are ?? unremarkable. ? XR/XR thoracic spine 2V ?? IMPRESSION: ?? Mild degenerative disc disease. ? Electronically signed by: ??Gentry Pedersen MD ??11/19/2024 12:21 PM EST ?? RP ? Dictated By: ?Gentry Pedersen MD ? Signed By: ?<Electronically signed by Gentry Pedersen MD in OV> ?11/19/24 1221 ? DD/ 1200 ? TD/TT: 11/19/24 1212 ? Slasher Runner: ? Procedure Note Donhilariater, Image - 11/19/[address] [address] XRay Report Signed Patient: Austen Pardo#: [id number] 028 : 1980Acct:[id number] Age/Sex: 44 / FADM Date: 11/19/24 Loc: .HHCX Attending Dr: Zita Agarwal MD Ordering Physician: Zita Gibbs MD Date of Service: 11/19/24 Procedure(s): XR thoracic spine 2V Accession Number(s): [id number] cc: Zita Gibbs MD EXAMINATION: XR THORACIC SPINE 2 VIEWS HISTORY: PAIN COMPARISON: There are no prior studies for comparison. FINDINGS: AP and lateral views of the thoracic spine are submitted. Osseous mineralization is normal. The vertebral bodies maintain normal height and alignment without evidence of fracture or subluxation. There is mild degenerative disc disease with disc space narrowing and osteophyte formation. The visualized paraspinal soft tissues are unremarkable. XR/XR thoracic spine 2V IMPRESSION: Mild degenerative disc disease. Electronically signed by: Gentry Pedersen MD 11/19/2024 12:21 PM EST Dictated By: Gentry Pedersen MD Signed By: <Electronically signed by Gentry Pedersen MD in OV> 11/19/24 1221 DD/ 1200 TD/TT: 11/19/24 1212 Slasher Runner: us Zita Agarwal MD IMG XR PROCEDURES Fin al Result * Pap Smear (02/07/2024 11:35 AM EDT) 02/07/2024 11:3 5 AM EDT 02/11/2024 11:15 AM EDT [facility] - 02/24/2024 12:49 PM EDT ----- ------- Name: Pardo,Shaniqua ?Age/Sex: 43/F ? : 1980 Unit#: [id number] ?? Attend Dr: Antonietta Davis CNM ?Re02/07/24 ?Status: DEP REF ? Location: HO.LNP ?Disch: ? ----- ------- SPEC : [id number] ? RECD: 02/11/24-111 ? STATUS: ??SOUT ? REQ NUM: [id number] ? CINDY: 02/07/24-1135 ? SUBM DR: Antonietta Davis CNM ? ENTERED: ??02/11/24-1234 ?SP TYPE: Pap Smr ?OTHR DR: Zita Gibbs MD ? ORDERED: ??Pap Smear ? Interpretation ?? Satisfactory for evaluation. ?? Negative for intraepithelial lesion or malignancy. ?HPV mRNA E6/E7: ?NOT DETECTED ? This assay detects E6/E7 viral messenger RNA (mRNA) from 14 high-risk HPV types (16, 18, ?? 31, 33, 35, 39, 45, 51, 52, 56, 58, 59, 66, 68) ?? HPV testing performed by [facility], [place], [place]. ??See reference laboratory ?? portion of the EMR for entire report. ?Clinical Information LMP: No menses Previous PAP test: 03/23/22, WNL ? Material Received ?? ThinPrep-Vaginal Copies To: ?? Zita Gibbs MD ?? [address] [facility] ?? [place] [address] ?? [phone] ?? Antonietta Davis CNM ?? [address] [place] [address] Dr. Urban [facility] ?? [place] [address] ?? [phone] ----- ------- Signed (signature on file) GARRY Lopes ([facility]) 02/24/24 1249 ? ----- ------- ? END OF REPORT ? us Generic External Data Provider LAB CYTOLOGY DANIELLE ROJAS Final Result [facility] [address] [place] [address] [phone] * BI Mammogram Screening Tomosynthesis Bilateral (02/03/2024 11:34 AM EDT) Anatomical Region Laterality Modality Breast Bilateral Mammography 02/03/2024 11:3 4 AM EDT Narrative 02/09/2024 8:48 PM EDT ? [facility] ? [address] [facility] ?[place] [address] ? Mammography Report ? Signed ? Patient: Pardo,Shaniqua ?MR#: [id number] ?? 028 ? : 1980 ?Acct:[id number] ? Age/Sex: 43 / F ?ADM Date: 04/08/24 ? Loc: HO.MAMMO ? Attending Dr: Zita Agarwal MD ? Ordering Physician: Zita Gibbs MD ?Results: ?? 1Negative ? Date of Service: 02/03/24 ?Follow Up: 1 Year From Orig ?? inal Mammogram ? Procedure(s): MM tomosynthesis screening BI ?? Accession Number(s): [id number] ? cc: Zita Gibbs MD ? EXAMINATION: ?? MM SCREENING DIGITAL BREAST TOMOSYNTHESIS, BILATERAL ? CLINICAL INFORMATION: ? Screening. Asymptomatic. ? COMPARISON: ?? Mammography: This study is compared with prior exams dating back to ?? 2017. ? TECHNIQUE: ?? Digital breast tomosynthesis is performed in both the craniocaudal and ?? mediolateral oblique views along with computer-aided detection (CAD). ?? Synthesized 2D images are generated from the tomosynthesis. ? FINDINGS: ?? There are scattered areas of fibroglandular density (ACR BI-RADS breast ?? composition Category b). ? There are no significant masses, abnormal calcifications, or other ?? abnormalities. ? MM/MM tomosynthesis screening BI ?? IMPRESSION: ?? No mammographic evidence of malignancy. ? ASSESSMENT: ? BI-RADS BI-RADS 1 - Negative ? RECOMMENDATION: ?? Routine annual mammography screening. ? 1 year F/U ? This examination should not preclude the clinical evaluation of a ?? suspicious palpable abnormality. ? This patient's information was entered into a reminder system with a ?? target due date for their next mammogram. ? Dictated By: ?Rain Franks MD ? Signed By: ?<Electronically signed by Rain Franks MD in OV> ? 02/09/242044 ? DD/ 33 ? TD/TT: ? Slasher Runner: ? Procedure Note Donotuseinterpreter, Image - 02/09/2024 [facility] [address] [place] [address] Mammography Report Signed Patient: Austen Pardo#: [id number] 028 : 1980Acct:[id number] Age/Sex: 43 / FADM Date: 02/03/24 Loc: HO.MAMMO Attending Dr: Zita Agarwal MD Ordering Physician: Zita Gibbs [facility] 1Negative Date of Service: 02/03/24Follow Up: 1 Year From Orig inal Mammogram Procedure(s): MM tomosynthesis screening BI Accession Number(s): [id number] cc: Zita Gibbs MD EXAMINATION: MM SCREENING DIGITAL BREAST TOMOSYNTHESIS, BILATERAL CLINICAL INFORMATION: Screening. Asymptomatic. COMPARISON: Mammography: This study is compared with prior exams dating back to 2018. TECHNIQUE: Digital breast tomosynthesis is performed in both the craniocaudal and mediolateral oblique views along with computer-aided detection (CAD). Synthesized 2D images are generated from the tomosynthesis. FINDINGS: There are scattered areas of fibroglandular density (ACR BI-RADS breast composition Category b). There are no significant masses, abnormal calcifications, or other abnormalities. MM/MM tomosynthesis screening BI IMPRESSION: No mammographic evidence of malignancy. ASSESSMENT: BI-RADS BI-RADS 1 - Negative RECOMMENDATION: Routine annual mammography screening. 1 year F/U This examination should not preclude the clinical evaluation of a suspicious palpable abnormality. This patient's information was entered into a reminder system with a target due date for their next mammogram. Dictated By: Rain Franks MD Signed By: <Electronically signed by Rain Franks MD in OV> 02/09/245 DD/ 1134 TD/TT: Slasher Runner: Zita Agarwal MD IMG BI PROCEDURES Mason moo Result - Final * Hepatitis C Antibody with Reflex to HCV, RNA, Quantitative, Real-Time PCR (04/08/2023 3:50 PM EDT) Hepatitis C Antibody NON-REACT JUAN CARLOS NON-REACT JUAN CARLOS [facility] Index <0.02 <1.00 [facility] Comment: HCV antibody was non-reactive. There is no laboratory evidence of HCV infection. In most cases, no further action is required. However, if recent HCV exposure is suspected, a test for HCV RNA (test code 39524) is suggested. For additional information please refer to http://Avuxi.ViewsIQ/faq/KLW77l9 (This link is being provided for informational/ educational purposes only.) 04/08/2023 3:50 PM EDT 04/08/2023 3:51 PM EDT Zita Agarwal MD LAB BLOOD ORDERABLES Final Result [facility] [address], [place] [address] [facility] [address] [place] [address] * HIV-1/2 Antigen and Antibodies, Fourth Generation, with Reflexes (04/08/2023 3:50 PM EDT) Pathologist [facility] HIV Antigen/Antibody, 4th Generation NON-REAC TIVE NON-REAC TIVE [facility] Comment: HIV-1 antigen and HIV-1/HIV-2 antibodies were not detected. There is no laboratory evidence of HIV infection. PLEASE NOTE: This information has been disclosed to you from records whose confidentiality may be protected by state law. ??If your state requires such protection, then the state law prohibits you from making any further disclosure of the information without the specific written consent of the person to whom it pertains, or as otherwise permitted by law. A general authorization for the release of medical or other information is NOT sufficient for this purpose. ?? For additional information please refer to http://education.ViewsIQ/faq/GGN215 (This link is being provided for informational/ educational purposes only.) The performance of this assay has not been clinically validated in patients less than 2 years old. 04/08/2023 3:50 PM EDT 04/08/2023 3:51 PM EDT Zita Agarwal MD LAB BLOOD ORDERABLES Final Result [facility] [address], [place] [address] [facility] [employer] [facility] [address] [place] [address] * (ABNORMAL) Lipid Panel, Standard (04/08/2023 3:50 PM EDT) Cholesterol, Total 162 <200 mg/dL [facility] HDL Cholesterol 60 > OR = 50 mg/dL [facility] [employer] [facility] [employer] [facility] Triglycerides 169(H) <150 mg/dL [facility] LDL Cholesterol 75 mg/dL (calc) [facility] Comment: Reference range: <100 Desirable range <100 mg/dL for primary prevention; ?? <70 mg/dL for patients with CHD or diabetic patients with > or = 2 CHD risk factors. LDL-C is now calculated using the Jose Alfredo-Lebron calculation, which is a validated novel method providing better accuracy than the Friedewald equation in the estimation of LDL-C. Jose Alfredo SS et al. PAUL. 2013;310(19): 1489-8042 (http://education.Kryptiq/faq/ZGO397) Chol/HDLC Ratio 2.7 <5.0 (calc) [email or web address] Non-HDL Cholesterol 102 <130 mg/dL (calc) [facility] Comment: For patients with diabetes plus 1 major ASCVD risk factor, treating to a non-HDL-C goal of <100 mg/dL (LDL-C of <70 mg/dL) is considered a therapeutic option. Blood Venous blood specimen / Unknown 04/08/2023 3:50 PM EDT 04/08/2023 3:51 PM EDT us Zita Agarwal MD LAB BLOOD ORDERABLES Final Result [facility] [address] [facility], [place] [address] [facility] [address] [place] [address] * Hm Colonoscopy (01/12/2021) Colonoscopy Normal Normal Narrative Faith Ruiz - 01/12/2021 Repeat Colonoscopy in 10 years or earlier if clinically indicated us Historical Provider HEALTH MAINTENANCE Final Result from Last 3 Months or Most Recently Relevant to Health Maintenance Insurance [facility] C3 HSN FULL Care Teams Hot Tar Roofer Helper Relationship Specialty Start Date End Date Zita Gibbs MD [address] [place] [address] PCP - General Family Medicine 05/10/22
--- OUTSIDE RECORDS SUMMARY | 2025-02-08 13:17 | XMS_ITS | Encounter Summary ---
Author Organization [employer] Address 75 [facility] 7t [place] [address] Care Team Providers Care Hand Tile Maker Name Role Phone Zita Gibbs MD Primary Care Provide r Reason for Visit * Reason Onset Date Comments Med Refill 06/21/2024 Encounter Details Date Type Department Care Team ([facility] st Contact Info) Description 06/21/2024 Refill [facility] 230 [place] [address] Jayson Brantley MD 230 [place] [address] Social History Tobacco Use Types Packs/Day Years [...] Recorded Patient Health Questionnaire-2 Score 0 04/29/2024 Comments Unknown Sex and Gender Information Value [...] Description 02/18/2025 10:45 AM EDT Office Visit [facility] [address] [place] [address] Zita Gibbs MD [address] [place] [address] 05/05/2025 10:45 AM EDT Office Visit [facility] [address] [place] [address] Zita Gibbs MD [address] [place] [address] 05/27/2025 11:15 AM EDT Office Visit [facility] [address] [place] [address] TarkaYue, OD [address] [place] [address] documented as of this encounter Visit Diagnoses Not on filedocumented in this encounter Additional Health Concerns Assessment Noted Time PHQ-9 Depression Total Score: 0 04/29/20 24 11:03 AM EDT documented as of this encounter Care Teams Hand Tile Maker Relationship Specialty Start Date End Date Zita Gibbs MD [address] [place] [address] PCP - General Family Medicine 05/10/22 documented as of this encounter
--- OUTSIDE RECORDS SUMMARY | 2025-02-08 13:17 | XMS_ITS | Encounter Summary ---
Author Organization [employer] Address [address] [facility] 7t [place] [address] Care Team Providers Care Surveyor Mine Name Role Phone Zita Gibbs MD Primary Care Provide r Reason for Visit * Reason Comments Med Refill Encounter Details Date Type Department Care Team ([facility] Contact Info) Description 11/13/2024 Refill [facility] 230 [place], [place] [phone] Zita Gibbs MD 230 [place], [place] [phone] Social History Tobacco Use Types Packs/Day Years [...] Description 02/18/2025 10:45 AM EDT Office Visit [facility] [address] [place] [address] Zita Gibbs MD 230 [place] [address] 05/05/2025 10:45 AM EDT Office Visit [facility] [address] [place] [address] Zita Gibbs MD 230 [place] [address] 05/27/2025 11:15 AM EDT Office Visit [facility] [address] [place] [address] Yue Cardoso, OD 267 [place] [address] documented as of this encounter Visit Diagnoses Not on filedocumented in this encounter Additional Health Concerns Assessment Noted Time PHQ-9 Depression Total Score: 0 04/29/20 24 11:03 AM EDT documented as of this encounter Care Teams Surveyor Mine Relationship Specialty Start Date End Date Zita Gibbs MD 230 [place] [address] PCP - General Family Medicine 05/10/22 documented as of this encounter
== END 2025-02-08 11:15 | disposition home or self-care (01) ==
LOC: HO.MAMMO 11:14
PROVIDERS: PCP Internal Medicine; Visit Provider Internal Medicine
DX: Z12.31 Encounter for screening mammogram for malignant neoplasm of breast (principal)
CPT/HCPCS: 77063; 77067

== ENCOUNTER → 2025-02-08 11:45 | Outpatient (BNV) | payer MEDICAID, SELFPAY | PROVIDERS: PCP Internal Medicine; Visit Provider Internal Medicine | DX: Z12.31 Encounter for screening mammogram for malignant neoplasm of breast (principal) | CPT/HCPCS: 77063; 77067 ==

== ENCOUNTER 2025-02-09 11:35 | Outpatient (AMB) | payer MEDICAID, SELFPAY ==
--- NOTE | 2025-02-09 11:36 | MHC.OFFVIS ---
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 She is feeling very very good she has been working very hard on losing portion control and eating healthy and walking 45 minutes a day and using the stairs in her house and being 2 at her work and in addition she was on would go be a now she is on Zepbound and she feels it helps her with the portion control but she is knows that she is doing the hard work herself and she has lost about 45 lb and in fact lost on her own before she even started the medications. She feels very proud of herself she had her mammogram yesterday she saw her primary care provider about a month ago and she will be seeing her then in April and she sees her oncologist tomorrow and she says she does not know that she has lost so much weight. 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 [facility] Medical History (Updated 02/09/25 @ 12:23 by Antonietta Davis CNM) Obesity Endometrial adenocarcinoma Abnormal uterine bleeding (AUB) Acid reflux Iron deficiency Thrombocytosis Anemia Back pain History of kidney stones Surgical History History of umbilical hernia repair (~09/08/24) History of esophagogastroduodenoscopy (EGD) H/O colonoscopy H/O: hysterectomy History of lithotripsy S/P cystoscopy with ureteral stent placement S/P tubal ligation History of Family History Mother Diabetes High blood pressure High cholesterol Father High blood pressure Social History Household Members: Family Housing: House Do you presently have visiting nurse or other home services: No Alcohol intake: never Patient Tobacco Use Status: Never used Tobacco e-Cigarette/Vaping Use: Never Used Second Hand Smoke Exposure: No Advance Directives Date on File: 01/13/21 service: No Current occupational status: unemployed Gender identity: Female Female Reproductive History Menstrual Age of Menarche: 11 control method: permanent sterilization Total pregnancies: 2 Full term: 2 Date of last pap smear: 02/11/24 (negative,2021,negative) History of abnormal pap smear: Yes (2020,ASCUS) Date of Mammogram: 12/13/22 (B-Rads-2) Physical Exam Vital Signs: Last Vital Signs BP 138/78 02/09/25 11:43 BMI result Body Mass Index 30.3 Const General: healthy appearing, comfortable, no acute distress, well developed and alert Nutritional Appearance: average body habitus Orientation/consciousness: patient oriented x3 Limitations: no limitations HEENT Head: Yes normocephalic Neck Neck: Yes normal visual inspection Thyroid: Thyroid normal Chest Chest palpation & inspection: normal inspection of the chest Breast/axilla inspection: normal inspection of the breasts and normal inspection of the axillae Breast/axilla palpation: normal palpation of the breasts and normal palpation of the axillae Resp Effort & Inspection: normal respiratory effort GI Inspection: Yes normal to inspection, No Abdominal wall edema and No distended Palpation (GI): Soft to palpation and nontender Other: Vagina pink and clear no abnormal discharge at all slight irregularity to vaginal cuff but nontender and no inflammation. External Female Exam: normal external appearance and normal appearance of the urethra Speculum Exam - Vagina: normal appearance of the vagina and normal vaginal discharge Bimanual Exam- Adnexa, other: normal adnexae, no masses, normal and No adnexal tenderness Neuro General: patient oriented x3 Assessment & Plan Assessment & Plan (1) S/P tubal ligation: Code(s): Z98.51 - Tubal ligation status Category: Surgical (2) Well woman exam with routine gynecological exam: Code(s): Z01.419 - Encounter for gynecological examination (general) (routine) without abnormal findings Category: Medical (3) Cervical cancer screening: Comment: 01/24/21 pap= ascus, neg hpv.,per [facility]- repeat pap in 3 yrs.,.( see adenocarcinoma -->hysterectomy 04/17./// pap of vag cuff done 03/22/22.= neg w neg HPV; 02/05/2024 Pap is negative with negative HPV. Code(s): Z12.4 - Encounter for screening for malignant neoplasm of cervix Category: Medical (4) Endometrial adenocarcinoma: Comment: cont to f/u with phlebotomy lab assistant.. dxd 03/17, hysterectomy 04/17 at [facility]. ; 02/05/2024 vaginal cuff Pap is negative with negative HPV. Code(s): C54.1 - Malignant neoplasm of endometrium Category: Medical (5) Obesity: Comment: Has lost 45 lb so far with her healthy eating and diet and portion control and exercise and with the assistance of Jin and now Zepbound. Code(s): E66.9 - Obesity, unspecified Category: Medical Plan -----Discussed in this visit the following: healthy balanced diet, regular and consistent exercise, getting recommended health screens, doing the best she can for her particular health concerns, kegel exercises, pap smear screening and followup recommendations, mammography screening and SBE, normal changes in cycles in her life stage--- . She is up-to-date with her mammograms she sees her oncologist tomorrow she sees her primary care provider regularly she is very proud of herself how much weight she has lost because it was mostly through her efforts with the assistance of the medications and she plans to continue because she has a goal herself of getting to a least 10 lb more weight loss before then focusing on maintaining. She feels very good and healthy and is happy and both of her sons ages 15 and 26 doing well and she is very proud them. She has no worries about STIs. Pap was done with Cytobrush of vaginal cuff. Orders: Orders Pap Smear Today Z00.00 - Encounter for general adult medical examination without abnormal findings Coding Level of Care Code Est Pt Prev Care 40-64y(24489) Diagnoses S/P tubal ligation Z98.51 Well woman exam with routine gynecological exam Z01.419 Cervical cancer screening Z12.4 Endometrial adenocarcinoma C54.1 Obesity E66.9
[2025-02-09 11:43] VITALS: BP 138/78; BMI 30.3
--- OUTSIDE RECORDS SUMMARY | 2025-02-09 14:19 | XMS_ITS | Encounter Summary ---
Author Organization [employer] Address 75 [facility] 7t [place] [address] Care Team Providers Care Supplier Quality Engineering Manager Name Role Phone Zita Gibbs MD Primary Care Provide r Reason for Visit * Reason Comments Med Refill Encounter Details Date Type Department Care Team ([facility] Contact Info) Description 11/17/2024 Refill [facility] 230 [place], [place] [phone] Zita Gibbs MD 230 [place], [place] [phone] Social History Tobacco Use Types Packs/Day Years [...] Description 02/18/2025 10:45 AM EDT Office Visit [facility] [address] [place] [address] Zita Gibbs MD 230 [place] [address] 05/05/2025 10:45 AM EDT Office Visit [facility] [address] [place] [address] Zita Gibbs MD 230 [place] [address] 05/27/2025 11:15 AM EDT Office Visit [facility] [address] [place] [address] Yue Cardoso, OD 267 [place] [address] documented as of this encounter Visit Diagnoses Not on filedocumented in this encounter Additional Health Concerns Assessment Noted Time PHQ-9 Depression Total Score: 0 04/29/20 24 11:03 AM EDT documented as of this encounter Care Teams Supplier Quality Engineering Manager Relationship Specialty Start Date End Date Zita Gibbs MD 230 [place] [address] PCP - General Family Medicine 05/10/22 documented as of this encounter
--- OUTSIDE RECORDS SUMMARY | 2025-02-09 14:19 | XMS_ITS | Encounter Summary ---
Author Organization [employer] Address 75 [facility] 7t [place] [address] Care Team Providers Care Nut Grinder Name Role Phone Zita Gibbs MD Primary Care Provide r Reason for Visit * Reason Comments Pre-visit Planning SDOH screening compl eted on 11/09/2024 Encounter Details Date Type Department Care Team ([facility] st Contact Info) Description 02/09/2025 Patient Outreach [facility] 230 [place] [address] Zita Gibbs MD 230 [place] [address] Pre-visit Planning (SDOH screening completed on 11/09/2024) Social History Tobacco Use Types Packs/Day Years [...] AM EDT documented as of this encounter Progress Notes * Carolina Maloney - 02/09/2025 9:12 AM EDT SUSSY Figueroa. Placed outbound call to patient to complete pre-visit planning. No answer at this time. Patient name and were not confirmed. CC left voicemail requesting return call. Direct contact information provided. documented in this encounter Plan of Treatment Upcoming Encounters Date Type Department Care Team (Late st Contact Info) Description 02/18/2025 10:45 AM EDT Office Visit [facility] [address] [place] [address] Zita Gibbs MD [address] [place] [address] 05/05/2025 10:45 AM EDT Office Visit [facility] [address] [place] [address] Zita Gibbs MD [address] [place] [address] 05/27/2025 11:15 AM EDT Office Visit [facility] [address] [place] [address] Yue Cardoso, OD [address] [place] [address] documented as of this encounter Visit Diagnoses Not on filedocumented in this encounter Additional Health Concerns Assessment Noted Time PHQ-9 Depression Total Score: 0 04/29/20 24 11:03 AM EDT documented as of this encounter Care Teams Nut Grinder Relationship Specialty Start Date End Date Zita Gibbs MD 230 [place] [address] PCP - General Family Medicine 05/10/22 documented as of this encounter
--- OUTSIDE RECORDS SUMMARY | 2025-02-09 14:19 | XMS_ITS | Encounter Summary ---
Author Organization [employer] Address 75 [facility] 7t [place] [address] Care Team Providers Care Poker In Name Role Phone Zita Gibbs MD Primary Care Provide r Reason for Visit * Reason Comments Med Refill Encounter Details Date Type Department Care Team ([facility] st Contact Info) Description 07/27/2024 Refill [facility] [address] [place], [place] [phone] Zita Gibbs MD 230 [place] [address] Class 2 obesity due to excess calories [...] Description 02/18/2025 10:45 AM EDT Office Visit [facility] [address] [place] [address] Zita Gibbs MD [address] [place] [address] 05/05/2025 10:45 AM EDT Office Visit [facility] [address] [place] [address] Zita Gibbs MD 230 [place] [address] 05/27/2025 11:15 AM EDT Office Visit [facility] [address] [place], [place] [phone] Yue Cardoso, OD 267 [place] [address] documented as of this encounter Visit Diagnoses Diagnosis Class 2 obesity due to excess calories without serious comorbidity with body mass index (BMI) of 38.0 to 38.9 in adult documented in this encounter Additional Health Concerns Assessment Noted Time PHQ-9 Depression Total Score: 0 04/29/20 24 11:03 AM EDT documented as of this encounter Care Teams Poker In Relationship Specialty Start Date End Date Zita Gibbs MD 230 [place] [address] PCP - General Family Medicine 05/10/22 documented as of this encounter
--- OUTSIDE RECORDS SUMMARY | 2025-02-09 14:19 | XMS_ITS | Encounter Summary ---
Author Organization [employer] Address 75 [facility] 7t [place] [address] Care Team Providers Care Manager Of Business Name Role Phone Zita Gibbs MD Primary Care Provide r Reason for Visit * Reason Comments Med Refill Encounter Details Date Type Department Care Team ([facility] Contact Info) Description 11/13/2024 Refill [facility] 230 [place], [place] [phone] Zita Gibbs MD 230 [place], [place] [phone] Social History Tobacco Use Types Packs/Day Years [...] Description 02/18/2025 10:45 AM EDT Office Visit [facility] [address] [place] [address] Zita Gibbs MD 230 [place] [address] 05/05/2025 10:45 AM EDT Office Visit [facility] [address] [place] [address] Zita Gibbs MD 230 [place] [address] 05/27/2025 11:15 AM EDT Office Visit [facility] [address] [place] [address] Yue Cardoso, OD [address] [place] [address] documented as of this encounter Visit Diagnoses Not on filedocumented in this encounter Additional Health Concerns Assessment Noted Time PHQ-9 Depression Total Score: 0 04/29/20 24 11:03 AM EDT documented as of this encounter Care Teams Manager Of Business Relationship Specialty Start Date End Date Zita Gibbs MD [address] [place] [address] PCP - General Family Medicine 05/10/22 documented as of this encounter
--- OUTSIDE RECORDS SUMMARY | 2025-02-09 14:19 | XMS_ITS | Encounter Summary ---
Author Organization [employer] Address 75 [facility] 7t [place] [address] Care Team Providers Care Geriatric Nurse Practitioner Name Role Phone Zita Gibbs MD Primary Care Provide r Reason for Visit * Reason Comments Med Change Request Encounter Details Date Type Department Care Team ([facility] Contact Info) Description 07/16/2024 Refill [facility] 230 [place], [place] [phone] Zita Gibbs MD [address] [place] [address] Class 2 obesity due to excess calories [...] 10:45 AM EDT Office Visit [facility] [address] [place] [address] Zita Gibbs MD [address] [place] [address] 05/05/2025 10:45 AM EDT Office Visit [facility] [address] [place] [address] Zita Gibbs MD [address] [place] [address] 05/27/2025 11:15 AM EDT Office Visit [facility] 267 [place], [place] [phone] Yue Cardoso, OD [address] [place] [address] documented as of this encounter Visit Diagnoses Diagnosis Class 2 obesity due to excess calories without serious comorbidity with body mass index (BMI) of 39.0 to 39.9 in adult documented in this encounter Additional Health Concerns Assessment Noted Time PHQ-9 Depression Total Score: 0 04/29/20 24 11:03 AM EDT documented as of this encounter Care Teams Geriatric Nurse Practitioner Relationship Specialty Start Date End Date Zita Gibbs MD [address] [place] [address] PCP - General Family Medicine 05/10/22 documented as of this encounter
--- OUTSIDE RECORDS SUMMARY | 2025-02-09 14:19 | XMS_ITS | Encounter Summary ---
Author Organization [employer] Address [address] [facility] 7t [place] [address] Care Team Providers Care Pyridine Recovery Operator Name Role Phone Zita Gibbs MD Primary Care Provide r Reason for Visit * Reason Onset Date Comments Med Refill 06/21/2024 Encounter Details Date Type Department Care Team ([facility] st Contact Info) Description 06/21/2024 Refill [facility] [address] [place] [address] Jayson Brantley MD [address] [place] [address] Social History Tobacco Use Types Packs/Day Years [...] Description 02/18/2025 10:45 AM EDT Office Visit [facility] [address] [place] [address] Zita Gibbs MD [address] [place] [address] 05/05/2025 10:45 AM EDT Office Visit [facility] [address] [place] [address] Zita Gibbs MD [address] [place] [address] 05/27/2025 11:15 AM EDT Office Visit [facility] [address] [place] [address] TarkaYue, OD [address] [place] [address] documented as of this encounter Visit Diagnoses Not on filedocumented in this encounter Additional Health Concerns Assessment Noted Time PHQ-9 Depression Total Score: 0 04/29/20 24 11:03 AM EDT documented as of this encounter Care Teams Pyridine Recovery Operator Relationship Specialty Start Date End Date Zita Gibbs MD [address] [place] [address] PCP - General Family Medicine 05/10/22 documented as of this encounter
--- OUTSIDE RECORDS SUMMARY | 2025-02-09 14:19 | XMS_ITS | Encounter Summary ---
Author Organization [employer] Address 75 [facility] 7t [place] [address] Care Team Providers Care Metal Door Assembler Name Role Phone Zita Gibbs MD Primary Care Provide r Encounter Details Date Type Department Care Team (Late st Contact Info) Description 07/16/2024 Orders Only [facility] 230 [place], [place] [phone] Zita Gibbs MD 230 [place] [address] Class 2 obesity due to excess calories [...] Description 02/18/2025 10:45 AM EDT Office Visit [facility] [address] [place] [address] Zita Gibbs MD 230 [place] [address] 05/05/2025 10:45 AM EDT Office Visit [facility] [address] [place] [address] Zita Gibbs MD 230 [place] [address] 05/27/2025 11:15 AM EDT Office Visit [facility] [address] [place] [address] Yue Cardoso, OD [address] [place] [address] documented as of this encounter Visit Diagnoses Diagnosis Class 2 obesity due to excess calories without serious comorbidity with body mass index (BMI) of 38.0 to 38.9 in adult documented in this encounter Additional Health Concerns Assessment Noted Time PHQ-9 Depression Total Score: 0 04/29/20 24 11:03 AM EDT documented as of this encounter Care Teams Metal Door Assembler Relationship Specialty Start Date End Date Zita Gibbs MD [address] [place] [address] PCP - General Family Medicine 05/10/22 documented as of this encounter
--- OUTSIDE RECORDS SUMMARY | 2025-02-09 14:20 | XMS_ITS | Encounter Summary ---
Author Organization [employer] Address 75 [facility] 7t [place] [address] Care Team Providers Care Agile Scrum Coach Name Role Phone Zita Gibbs MD Primary Care Provide r Reason for Visit * Reason Onset Date Comments Med Refill 11/27/2024 Encounter Details Date Type Department Care Team (Late st Contact Info) Description 11/27/2024 Refill [facility] [address] [place] [address] Zita Gibbs MD 230 [place], [place] [phone] Class 1 obesity due to excess calories [...] Description 02/18/2025 10:45 AM EDT Office Visit [facility] [address] [place] [address] Zita Gibbs MD 230 [place] [address] 05/05/2025 10:45 AM EDT Office Visit [facility] [address] [place] [address] Zita Gibbs MD 230 [place] [address] 05/27/2025 11:15 AM EDT Office Visit [facility] 267 [place], [place] [phone] Yue Cardoso, OD 267 [place] [address] documented as of this encounter Visit Diagnoses Diagnosis Class 1 obesity due to excess calories without serious comorbidity with body mass index (BMI) of 32.0 to 32.9 in adult documented in this encounter Additional Health Concerns Assessment Noted Time PHQ-9 Depression Total Score: 0 04/29/20 24 11:03 AM EDT documented as of this encounter Care Teams Agile Scrum Coach Relationship Specialty Start Date End Date Zita Gibbs MD 230 [place] [address] PCP - General Family Medicine 05/10/22 documented as of this encounter
--- OUTSIDE RECORDS SUMMARY | 2025-02-09 14:20 | XMS_ITS | Encounter Summary ---
Author Organization [employer] Address [address] [facility] [address]t [place] [address] Care Team Providers Care Car Ferrier Name Role Phone Zita Gibbs MD Primary Care Provide r Reason for Visit * Reason Onset Date Comments Med Refill 11/08/2024 Encounter Details Date Type Department Care Team ([facility] st Contact Info) Description 11/08/2024 Refill [facility] [address] [place] [address] Zita Gibbs MD [address] [place] [address] Social History Tobacco Use Types Packs/Day Years [...] Description 02/18/2025 10:45 AM EDT Office Visit [facility] [address] [place] [address] Zita Gibbs MD [address] [place] [address] 05/05/2025 10:45 AM EDT Office Visit [facility] [address] [place] [address] Zita Gibbs MD [address] [place] [address] 05/27/2025 11:15 AM EDT Office Visit [facility] OPTOMETRY [address] [place] [address] Yue Cardoso, OD [address] [place] [address] documented as of this encounter Visit Diagnoses Not on filedocumented in this encounter Additional Health Concerns Assessment Noted Time PHQ-9 Depression Total Score: 0 04/29/20 24 11:03 AM EDT documented as of this encounter Care Teams Car Ferrier Relationship Specialty Start Date End Date Zita Gibbs MD [address] [place] [address] PCP - General Family Medicine 05/10/22 documented as of this encounter
--- OUTSIDE RECORDS SUMMARY | 2025-02-09 14:20 | XMS_ITS | Clinical Summary ---
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 Role Phone Zita Gibbs MD [...] Encounters Date Type Department Care Team Description 02/09/2025 Patient Outreach [facility] [address] [place] [address] Zita Gibbs MD Pre-visit Planning (SDOH screening completed on 11/09/2024) 01/26/2025 Refill [facility] [address] [place] [address] Zita Gibbs MD 01/08/2025 Population Health Risk Score [facility] () [address] [address] Provider, Population Health Generic 01/02/2025 Refill [facility] [address] [place] [address] Zita Gibbs MD Chronic midline low back pain without sciatica 12/14/2024 Refill [facility] [address] [place] [phone] Zita Gibbs MD Class 1 obesity due to excess calories without serious comorbidity with body mass index (BMI) of 32.0 to 32.9 in adult 11/27/2024 Refill [facility] [address] [place] [address] Zita Gibbs MD Class 1 obesity due to excess calories without serious comorbidity with body mass index (BMI) of 32.0 to 32.9 in adult 11/24/2024 Telephone [facility] [address] [place] [phone] Zita Gibbs MD Paperwork/Forms; Prior Authorization ([facility] Request: [employer]) 11/19/2024 11:00 AM EST Office Visit [facility] [address] [place] [phone] Zita Gibbs MD Class 1 obesity due to excess calories without serious comorbidity with body mass index (BMI) of 32.0 to 32.9 in adult (Primary Dx); Upper back pain; Colon cancer screening; Primary hypertension 11/19/2024 Travel 11/17/2024 Refill [facility] [address] [place] [phone] Zita Gibbs MD 11/13/2024 Refill [facility] [address] [place] [address] Zita Gibbs MD from Last 3 Months [...] Description 02/18/2025 10:45 AM EDT Office Visit [facility] [address] [place] [address] Zita Gibbs MD [address] [place] [address] 05/05/2025 10:45 AM EDT Office Visit [facility] [address] [place] [address] Zita Gibbs MD [address] [place] [address] 05/27/2025 11:15 AM EDT Office Visit [facility] OPTOMETRY [address] [place] [address] TarkaYue, OD [address] [place] [address] Health Maintenance Due Date Last Done Comments CT Colonography 1978 FIT DNA/Cologuard 1978 FIT 1978 FOBT 1978 Sigmoidoscopy 1980 Family Planning (PISQ) 1993 Hepatitis B Vaccines (1 of 3 - 19+ 3-dose series) 1997 COVID-19 Vaccine (3 - 2023-2 5 season) 2024 03/15/2021, 02/15/2021 Influenza Vaccine (#1) 2024 , 09/19/2020, 01/08/2020 Mammogram 02/02/2025 02/03/2024, 12/13/2022 Alcohol/Substance [...] PM EST Narrative 11/19/2024 12:24 PM EST ?[facility] ?[address] ?[place] [address] ?XRay Report ? Signed ? Patient: Pardo,Shaniqua ?MR#: [id number] ?? 028 ? : 1980 ?Acct:[id number] ? Age/Sex: 44 / F ?ADM Date: /23/25 ? Loc: HO.HHCX ? Attending Dr: Zita Agarwal MD ? Ordering Physician: Zita Gibbs MD ?? Date of Service: 11/19/24 ?? Procedure(s): XR thoracic spine 2V ?? Accession Number(s): [id number] ? cc: Zita Gibbs MD ? EXAMINATION: [...] EST ?? RP ? Dictated By: ?Gentry Pederesn MD ? Signed By: ?<Electronically signed by Gentry Pedersen MD in OV> ?11/19/24 1221 ? DD/ 1200 ? TD/TT: 11/19/24 1212 ? Orthopaedic Surgeon: ? Procedure Note Donotkendrainterpreter, Image - 11/19/2024 [place] [address] XRay Report Signed Patient: Austen Pardo#: [id number] 028 : 1980Acct:[id number] Age/Sex: 44 / FADM Date: 11/19/24 Loc: HO.HHCX Attending Dr: Zita Agarwal MD Ordering Physician: Zita Gibbs MD Date of Service: 11/19/24 Procedure(s): XR thoracic spine 2V Accession Number(s): [id number] cc: Zita Gibbs MD EXAMINATION: XR THORACIC [...] by: Gentry Pedersen MD 11/19/2024 12:21 PM [facility] Dictated By: Gentry Pedresen MD Signed By: <Electronically signed by Gentry Pedersen MD in OV> 11/19/24 1221 DD/ 1200 TD/TT: 11/19/24 1212 Orthopaedic Surgeon: us Zita Agarwal MD IMG XR PROCEDURES Fin al Result * Pap Smear (02/07/2024 11:35 AM EDT) 02/07/2024 11:3 5 AM EDT 02/11/2024 11:15 AM EDT [facility] LABS - 02/24/2024 12:49 PM EDT ----- ------- Name: Shaniqua Pardo ?Age/Sex: 43/F ? : 1980 Unit#: [id number] ?? Attend Dr: Antonietta Davis CNM ?Re02/07/24 ?Status: DEP REF ? Location: HO.LNP ?Disch: ? ----- ------- SPEC : [id number] ? RECD: 02/11/24-1115 ? STATUS: ??SOUT ? REQ NUM: [id number] ? CINDY: 02/07/24-1135 ? SUBM DR: Antonietta [...] 66, 68) ?? HPV testing performed by [facility], [place], [place]. ??See reference laboratory ?? portion of the EMR for entire report. ?Clinical Information LMP: No menses Previous PAP test: 03/23/22, WNL ? Material Received ?? ThinPrep-Vaginal Copies To: ?? Zita Gibbs MD ?? [address] ?? [place] [address] ?? [phone] ?? Antonietta Davis CNM ?? [address] ?? [place] [address] ?? [phone] ----- ------- Signed (signature on file) GARRY Lopes ([facility]) 02/24/24 1249 ? ----- ------- ? END OF REPORT ? us Generic External Data Provider LAB CYTOLOGY DANIELLE ROJAS Final Result [facility] [address] [place] [phone] * BI Mammogram Screening Tomosynthesis Bilateral (02/03/2024 11:34 AM EDT) Anatomical Region Laterality Modality Breast Bilateral Mammography 02/03/2024 11:3 4 AM EDT Narrative 02/09/2024 8:48 PM EDT ? [facility] ? [address] ?[place] [address] ? Mammography Report ? Signed ? Patient: Pardo,Shaniqua ?MR#: [id number] ?? 028 ? : 1980 ?Acct:[id number] ? Age/Sex: 43 / F ?ADM Date: 04/08/24 ? Loc: HO.MAMMO ? Attending Dr: Zita Agarwal MD ? Ordering Physician: Zita Gibbs MD ?Results: ?? 1Negative ? Date of Service: 02/03/24 ?Follow Up: 1 Year From Orig ?? inal Mammogram ? Procedure(s): MM tomosynthesis screening BI ?? Accession Number(s): [id number] ? cc: Zita Gibbs MD ? EXAMINATION: [...] MD in OV> ? 02/09/242044 ? DD/ 1134 ? TD/TT: ? Orthopaedic Surgeon: ? Procedure Note Donotuseinterpreter, Image - 02/09/2024 [place] [facility] [address] [place] [address] Mammography Report Signed Patient: Austen Pardo#: [id number] 028 : 1980Acct:[id number] Age/Sex: 43 / FADM Date: 02/03/24 Loc: HO.MAMMO Attending Dr: Zita Agarwal MD Ordering Physician: Zita Gibbs MDResults: 1Negative Date of Service: 02/03/24Follow Up: 1 Year From Orig inal Mammogram Procedure(s): MM tomosynthesis screening BI Accession Number(s): [id number] cc: Zita Gibbs MD EXAMINATION: MM SCREENING [...] signed by Rain Franks MD in OV> 02/09/242044 DD/ 1134 TD/TT: Orthopaedic Surgeon: Zita Agarwal MD IMG BI PROCEDURES Mason moo Result - Final * Hepatitis C Antibody with Reflex to HCV, RNA, Quantitative, Real-Time PCR (04/08/2023 3:50 PM EDT) Hepatitis C Antibody NON-REACT JUAN CARLOS NON-REACT JUAN CARLOS [facility] [place] [facility] Index <0.02 <1.00 [facility] [place] [facility] Comment: HCV antibody was non-reactive. There is no laboratory evidence of HCV infection. In most cases, no further action is required. However, if recent HCV exposure is suspected, a test for HCV RNA (test code 18847) is suggested. For additional information please refer to http://[facility].Sentrinsic/faq/YFB80m1 (This link is being provided for informational/ educational purposes only.) 04/08/2023 3:50 PM EDT 04/08/2023 3:51 PM EDT Result [facility] Zita Agarwal MD LAB BLOOD ORDERABLES Final Result [facility] [address], [place] [address] [facility] [place] [facility] [address] [place] [address] * HIV-1/2 Antigen and Antibodies, Fourth Generation, with Reflexes (04/08/2023 3:50 PM EDT) HIV Antigen/Antibody, 4th Generation NON-REAC TIVE NON-REAC TIVE [facility] [place] [employer] Comment: HIV-1 antigen and HIV-1/HIV-2 antibodies were [...] ?? For additional information please refer to http://[facility].Sentrinsic/faq/MOQ518 (This link is being provided for informational/ educational purposes only.) The performance of this assay has not been clinically validated in patients less than 2 years old. 04/08/2023 3:50 PM EDT 04/08/2023 3:51 PM EDT Zita Agarwal MD LAB BLOOD ORDERABLES Final Result [facility] [address], [facility] [place] [address] [facility] [place] [facility] [address] [place] [address] * (ABNORMAL) Lipid Panel, Standard (04/08/2023 3:50 PM EDT) [facility] Cholesterol, Total 162 <200 mg/dL [facility] [place] [facility] HDL Cholesterol 60 > OR = 50 mg/dL [facility] [place] [facility] Triglycerides 169(H) <150 mg/dL [facility] [place] [facility] LDL Cholesterol 75 mg/dL (calc) [facility] [place] [facility] Comment: Reference range: <100 Desirable range <100 mg/dL for primary prevention; ?? <70 mg/dL for patients with CHD or diabetic patients with > or = 2 CHD risk factors. LDL-C is now calculated using the Jose Alfredo-Bernardino calculation, which is a validated novel method providing better accuracy than the Friedewald equation in the estimation of LDL-C. Jose Alfredo MARES et al. PAUL. 2013;310(19): 2252-6028 (http://education.Eventyard/faq/WDS225) Chol/HDLC Ratio 2.7 <5.0 (calc) [facility] [facility] Non-HDL Cholesterol 102 <130 mg/dL (calc) [facility] Comment: For patients with diabetes plus 1 major ASCVD risk factor, treating to a non-HDL-C goal of <100 mg/dL (LDL-C of <70 mg/dL) is considered a therapeutic option. Blood Venous blood specimen / Unknown 04/08/2023 3:50 PM EDT 04/08/2023 3:51 PM EDT Zita Agarwal MD LAB BLOOD ORDERABLES Final Result [facility] [address], [place] [address] [facility] [address] [place] [address] * Colonoscopy (01/12/2021) Colonoscopy Normal Normal Narrative Faith Ruiz - 01/12/2021 Repeat Colonoscopy in 10 years or earlier if clinically indicated Historical Provider HEALTH MAINTENANCE Final Result from Last 3 Months or Most Recently Relevant to Health Maintenance Insurance [facility] C3 HSN FULL Care Teams Reach Truck Operator Relationship Specialty Start Date End Date Zita Gibbs MD [address] [place] [id number] PCP - General Family Medicine 05/10/22
== END 2025-02-09 13:00 | disposition home or self-care (01) ==
LOC: HO.HWSM 11:35
PROVIDERS: PCP Internal Medicine; Visit Provider Advanced Practice Midwife
DX: Z98.51 Tubal ligation status (principal); Z01.419 Encounter for gynecological examination (general) (routine) without abnormal findings; Z12.4 Encounter for screening for malignant neoplasm of cervix; C54.1 Malignant neoplasm of endometrium; E66.9 Obesity, unspecified
CPT/HCPCS: 99396; 99459

== ENCOUNTER 2025-02-09 11:35 | Outpatient (REF) | payer MEDICAID, SELFPAY ==
[2025-02-12 13:57] LABS: HPV Genotype 16 Negative (Negative); HPV Genotype 18 Negative (Negative); HPV High Risk Negative (Negative)
== END 2025-02-09 11:36 | disposition home or self-care (01) ==
LOC: HO.LNP 11:35
PROVIDERS: PCP Internal Medicine; Visit Provider Advanced Practice Midwife
DX: Z01.419 Encounter for gynecological examination (general) (routine) without abnormal findings (principal); E66.9 Obesity, unspecified; Z98.51 Tubal ligation status; Z85.42 Personal history of malignant neoplasm of other parts of uterus; Z90.710 Acquired absence of both cervix and uterus
CPT/HCPCS: 87626; 88175; 99396; 99459

== ENCOUNTER 2025-04-24 21:07 | Emergency (ER) | payer MEDICAID, SELFPAY ==
[2025-04-24 21:24] VITALS: BP 146/52; PULSE 85; RESP 18; TEMP 36.6; O2SAT 96; BMI 28.5
[2025-04-24 21:34] VITALS: BP 159/101; PULSE 77; RESP 20; TEMP 36.7; O2SAT 96
[2025-04-24 21:47] LABS: MANUAL DIFF FLAG NO
[2025-04-24 21:48] LABS: Basophils Percent Auto 0.4 % (0-2); Eosinophils Absolute Auto 0.1 X10*3/uL (0.0-0.4); Eosinophils Percent Auto 1.7 % (0-4); Hematocrit 35.3 % (37.0-47.0); Hemoglobin 12.5 g/dl (12.0-16.0); Imm Gran Abs Auto 0.01 X10*3/uL (0.00-0.03); Imm Gran Pct Auto 0.1 % (0.0-0.4); Lymphocytes Absolute Auto 2.1 X10*3/uL (1.2-4.9); Lymphocytes Percent Auto 28.3 % (20-40); Mean Corpuscular HGB Conc 35.4 g/dl (31.0-35.0); Mean Corpuscular Hemoglobin 30.8 pg (27.0-33.0); Mean Corpuscular Volume 86.9 fL (80.0-98.0); Mean Platelet Volume 9.5 fL (9.4-12.3); Monocytes Absolute Auto 0.6 X10*3/uL (0.1-1.2); Monocytes Percent Auto 8.3 % (2-11); Neutrophils Absolute Auto 4.5 x10*3/uL (2.0-8.3); Neutrophils Percent Auto 61.2 % (45-73); Platelet Count 379 X10*3/uL (160-400); Red Blood Count 4.06 X10*6/uL (4.20-5.50); Red Cell Distribution Width 12.1 % (11.0-16.0); White Blood Count 7.4 X10*3/uL (4.8-10.8)
[2025-04-24 22:06] LABS: Alanine Aminotransferase 10 U/L (0-31); Alkaline Phosphatase 49 U/L (39-117); Anion Gap 12 (12-20); Aspartate Amino Transferase 16 U/L (5-31); Bilirubin Total 0.2 mg/dL (0.0-1.0); Blood Urea Nitrogen 12 mg/dL (9-16); Calcium 8.5 mg/dL (8.4-10.2); Carbon Dioxide 22 mmol/L (22-29); Chloride 110 mmol/L (96-108); Creatinine Clr Calc Pharmacy 86.8; Estimated Glomerular Filt Rate > 60; Glucose Random 107 mg/dL (60-115); Potassium 3.3 mmol/L (3.3-5.1); Sodium 141 mmol/L (135-145); Total Protein 6.5 g/dL (6.5-8.0)
--- NOTE | 2025-04-24 22:36 | ED_ITS ---
HPI - Allergic Reaction General Chief complaint: Allergic Reaction Stated complaint: allergic reaction/throat itchy but breathing ok Time Seen by Provider: 04/24/25 21:52 History of Present Illness HPI narrative: Patient is 45 years old presents today with having swelling redness to the face to the neck. Itchy denies any change in environment no change in surrounding no shortness of breath. No difficulty breathing no change in voice. No change in medication. Patient from home. Related Data Home Medications ?Medication ?Instructions ?Recorded ?Confirmed semaglutide (weight loss) 0.5 0.5 mg subcut QWEEK 06/2908/14/24 mg/0.5 mL subcutaneous pen injector (Wegovy) Previous Rx's ?Medication ?Instructions ?Recorded acetaminophen 500 mg tablet 500 mg PO Q6H PRN pain or fever 10/02/21 (Tylenol Extra Strength) #20 tabs ibuprofen 600 mg tablet 600 mg PO Q6H PRN pain #30 t abs 09/08/24 diphenhydramine HCl 25 mg capsule 25 mg PO Q8H 5 days #15 caps 04/24/25 (Benadryl) epinephrine 0.3 mg/0.3 mL 0.3 mg (0.3 mL) IM ONCE PRN 04/24/25 injection, auto-injector (EpiPen) extreme reaction #1 ea famotidine 20 mg tablet (Pepcid) 20 mg PO BID 5 days # 10 tabs 04/24/25 prednisone 20 mg tablet 40 mg (2 x 20 mg) PO DAILY # 10 tabs 04/24/25 Allergies Allergy/AdvReac Type Severity Reaction Status Date / Time No Known Allergies Allergy Verified 04/24/25 21:26 Review of Systems 2 Review of Systems: No fever no chills no chest pain or shortness breath Yes all other systems are reviewed and are negative PMFSH Past Medical History Attestation statement: The following information was validated with the patient. Medical History Obesity Endometrial adenocarcinoma Abnormal uterine bleeding (AUB) Acid reflux Iron deficiency Thrombocytosis Anemia Back pain History of kidney stones Surgical History History of umbilical hernia repair (~09/08/24) History of esophagogastroduodenoscopy (EGD) H/O colonoscopy H/O: hysterectomy History of lithotripsy S/P cystoscopy with ureteral stent placement S/P tubal ligation History of Family History Family History Mother Diabetes High blood pressure High cholesterol Father High blood pressure Social History Social History Household Members: Family Housing: House Do you presently have visiting nurse or other home services: No Alcohol intake: never Patient Tobacco Use Status: Never used Tobacco Smoked in Last 30 Days: No e-Cigarette/Vaping Use: Never Used Second Hand Smoke Exposure: No Use of substances other than those prescribed or required for medical reasons: No Advance Directives: Yes Advance Directives on File: Yes Advance Directives Date on File: 01/13/21 service: No Current occupational status: unemployed Gender identity: Female Physical Exam ED Vital Signs: Vital Signs - 24 hr 04/24/25 21:24 04/24/25 21:34 Temperature 97.8 F 98.1 F Pulse Rate 85 77 Respiratory Rate 18 20 Blood Pressure 146/52 H 159/101 H Pulse Oximetry 96 96 Oxygen Delivery Method Room Air Room Air BMI result Body Mass Index 28.5 Appearance: Alert. Oriented X3. No acute distress. Eyes: Pupils equal, round and reactive to light. ENT: Pharynx normal. Tongue is normal size posterior pharynx is normal Neck: Normal inspection. Neck supple. No lymph nodes noted. No crepitus CVS: Normal heart rate and rhythm. Pulses normal. Normal S1 and S2 Respiratory: No respiratory distress. Breath sounds normal. No Wheezing. No rales Abdomen: Soft and nontender. No rigidity. No distention. good BS x4 Skin: Positive redness over the face neck blanching. Positive rash over the axilla bilaterally. Extremities: No lower extremity edema. Neurovascular intact to all extremities. No Lacerations. Neuro: Oriented X 3. No motor deficit. No sensory deficit. Moving all extermities. No slurred speech Medical Decision Making Medical Decision Making MDM Narrative: Patient's rash is over sun-exposed area. Positive redness positive itchiness. In no acute distress. Lungs are clear. Question secondary to eczema. Another possibility is allergic reaction either way steroid was given. Benadryl Pepcid was given. Will have patient follow-up on an outpatient basis. Avoid sun exposure. In stable condition. Differential Diagnosis Differential Diagnoses: The differential diagnosis associated with the presentation includes Admission/Observation Consideration of admission/observation: Escalation of care including admission/observation considered Lab Data [facility] Lab Attestation statement: I reviewed the patient's lab results. 04/24/25 21:42 04/24/25 21:42 Labs: Lab Results 04/24/25 Range/Units 21:42 WBC 7.4 (4.8-10.8) X10*3/uL RBC 4.06 L (4.20-5.50) X10*6/uL Hgb 12.5 (12.0-16.0) g/dl Hct 35.3 L (37.0-47.0) % MCV 86.9 (80.0-98.0) fL MCH 30.8 (27.0-33.0) pg MCHC 35.4 H (31.0-35.0) g/dl RDW 12.1 (11.0-16.0) % Plt Count 379 (160-400) X10*3/uL MPV 9.5 (9.4-12.3) fL Immature Gran % (Auto) 0.1 (0.0-0.4) % Neut % (Auto) 61.2 (45-73) % Lymph % (Auto) 28.3 (20-40) % [place]barger % (Auto) 8.3 (2-11) % Eos % (Auto) 1.7 (0-4) % Baso % (Auto) 0.4 (0-2) % Lymph # (Auto) 2.1 (1.2-4.9) X10*3/uL [place]ger # (Auto) 0.6 (0.1-1.2) X10*3/uL Eos # (Auto) 0.1 (0.0-0.4) X10*3/uL Baso # (Auto) 0.0 (0.0-0.2) X10*3/uL Abs Immat Gran (auto) 0.01 (0.00-0.03) X10*3/uL Absolute Neuts (auto) 4.5 (2.0-8.3) x10*3/uL Absolute Nucleated RBC 0.000 (0.0-0.012) X10*3/uL Nucleated RBC % (auto) 0.0 (0.0-0.2) /100WBC Sodium 141 (135-145) mmol/L Potassium 3.3 (3.3-5.1) mmol/L Chloride 110 H (96-108) mmol/L Carbon Dioxide 22 (22-29) mmol/L Anion Gap 12 (12-20) BUN 12 (9-16) mg/dL Creatinine 0.68 (0.5-1.4) mg/dL Estim Creat Clear Calc 86.8 Estimated GFR > 60 Random Glucose 107 (60-115) mg/dL Calcium 8.5 (8.4-10.2) mg/dL Total Bilirubin 0.2 (0.0-1.0) mg/dL AST 16 (5-31) U/L ALT 10 (0-31) U/L Alkaline Phosphatase 49 (39-117) U/L Total Protein 6.5 (6.5-8.0) g/dL Albumin 4.0 (3.5-5.0) g/dL Radiology Impression Discussion of test interpretation with radiology: I have reviewed the radiologist's reading. Chronic Conditions History of being overweight Social Determinants Patient?s care significantly limited by Social Determinants of Health including: Problems related to primary support group Discharge Plan Discharge Clinical Impression: Allergic reaction, Eczema Patient Disposition: Home, Self-Care Instructions: Eczema (ED), General Allergic Reaction (ED) Prescriptions: New prednisone 20 mg tablet 40 mg PO DAILY Qty: 10 0RF famotidine [Pepcid] 20 mg tablet 20 mg PO BID 5 Days Qty: 10 0RF diphenhydramine HCl [Benadryl] 25 mg capsule 25 mg PO Q8H 5 Days Qty: 15 0RF epinephrine [EpiPen] 0.3 mg/0.3 mL auto-injector 0.3 mg IM ONCE PRN (Reason: extreme reaction) Qty: 1 0RF Rx Instructions: for 2 doses No Action acetaminophen [Tylenol Extra Strength] 500 mg tablet 500 mg PO Q6H PRN (Reason: pain or fever) Qty: 20 0RF ibuprofen 600 mg tablet 600 mg PO Q6H PRN (Reason: pain) Qty: 30 0RF Wegovy 0.5 mg/0.5 mL pen injector 0.5 mg subcut QWEEK Rx Instructions: takes on Wednesdays Referrals: Zita Gibbs MD [Primary Care Provider, Internal Medicine] - 04/26/25 Print Language: Mauritanian
[2025-04-24] MEDS: diphenhydrAMINE HCL 25 MG CAPSULE PO (22:45)
[2025-04-24] MEDS: Famotidine 20 MG TABLET PO (22:45)
[2025-04-24] MEDS: predniSONE 20 MG TABLET 40 MG PO (22:49)
[2025-04-24 22:50] VITALS: BP 140/92; PULSE 73; RESP 17; TEMP 36.7; O2SAT 96
[2025-04-24 22:57] VITALS: BP 140/92; PULSE 73; RESP 17; TEMP 36.7; O2SAT 96
== END 2025-04-24 23:12 | disposition home or self-care (01) ==
PROVIDERS: Emergency Provider Emergency Medicine Emergency Medical Services; PCP Internal Medicine
DX: L50.0 Allergic urticaria (principal); Z79.85 Long-term (current) use of injectable non-insulin antidiabetic drugs; Z79.899 Other long term (current) drug therapy
CPT/HCPCS: 36415; 80053; 85025; 99283; 99284

== ENCOUNTER 2025-06-16 10:36 | Outpatient (AMB) | payer MEDICAID, SELFPAY ==
--- NOTE | 2025-06-16 10:39 | MHC.OFFVIS ---
Vital Signs 06/16/25 10:41 Height 5 ft Weight 150 lb BMI 29.3 BP 117/83 Blood Pressure Location Lt brachial Position Sitting Pulse 60 Pulse Oximetry (%) 98 Oxygen Delivery Method Room Air Intake Visit Reasons: Colonoscopy Screening Intake Note: Patient new consult for 2nd Colonoscopy Screening. [place] [facility] [place] cc: Constipation on and off, and denies any other GI issues. Art Psychotherapist Or Therapist Required: No Accompanied by: Self / Same As Patient Allergies No Known Allergies Allergy (Verified 06/16/25 10:38) Medication List - Last Reconciled 06/16/25 by Jordyn Royal CNP acetaminophen (Tylenol Extra Strength) 500 mg PO Q6H PRN diphenhydramine HCl (Benadryl) 25 mg PO Q8H 5 days epinephrine (EpiPen) 0.3 mg (0.3 mL) IM ONCE PRN ibuprofen 600 mg PO Q6H PRN tirzepatide (weight loss) (Zepbound) mg subcut QWEEK HPI HPI Colonoscopy Screening: Details: Patient is a 45-year-old female with PMH of obesity, hypertension, chronic back pain and hx of uterine ca s/p hysterectomy March 2021. Referred by PCP for pre colonoscopy screening. Shaniqua reports longstanding constipation, which worsened after starting a weight loss medication in May?June 2024. Prior to the medication, she experienced daily bowel movements that were hard and required straining. Currently, she continues to have one bowel movement per day, but notes increased difficulty and straining. She relies on water and occasionally prune juice to alleviate symptoms, but does not use regular laxatives or stool softeners. Shaniqua notes her constipation is likely exacerbated by her weight loss regimen, and she follows a high-protein diet with minimal vegetables. Previous colonoscopy (December 2020) was normal except for internal hemorrhoids. Gastric inflammation was observed during a concurrent upper endoscopy, which has not caused symptoms since. History of iron deficiency anemia, resolved since treatment for uterine cancer (hysterectomy, March 2021). No history of red flag symptoms such as unexplained weight loss or persistent anemia. Patient denies: fever/chills, n/v, appetite changes, pyrosis, regurgitation,dysphasia, unintentional wt loss, ab pain or melena/hematochezia. Social hx: -denies ETOH use -denies recreational drug use -non-smoker - family hx as below -denies significant cardiopulmonary history -tolerated anesthesia in the past without difficulty. [facility], [facility] Medical History (Updated 06/16/25 @ 12:41 by Jordyn Royal CNP) Constipation Colon cancer screening Obesity Endometrial adenocarcinoma Abnormal uterine bleeding (AUB) Acid reflux Iron deficiency Thrombocytosis Anemia Back pain History of kidney stones Surgical History History of umbilical hernia repair (~09/08/24) History of esophagogastroduodenoscopy (EGD) H/O colonoscopy H/O: hysterectomy History of lithotripsy S/P cystoscopy with ureteral stent placement S/P tubal ligation History of Family History Mother Diabetes High blood pressure High cholesterol Father High blood pressure Social History Household Members: Family Housing: House Do you presently have visiting nurse or other home services: No Alcohol intake: never Patient Tobacco Use Status: Never used Tobacco e-Cigarette/Vaping Use: Never Used Second Hand Smoke Exposure: No Advance Directives Date on File: 01/13/21 service: No Current occupational status: unemployed Gender identity: Female Female Reproductive History Menstrual Age of Menarche: 11 Review of Systems Const Reports as per HPI ENT Reports as per HPI Card Reports as per HPI Resp Reports as per HPI GI Reports as per HPI Reports as per HPI Physical Exam Vital Signs: Oxygen Delivery Method Room Air 06/16/25 10:41 BMI result Body Mass Index 29.3 Const General: healthy appearing, no acute distress and well developed Nutritional Appearance: average body habitus Orientation/consciousness: patient oriented x3 HEENT Head: Yes normal to inspection, Yes normocephalic and Yes atraumatic Face and sinus: Yes normal facial exam Eyes General: appearance normal, both eyes and all related structures Neck Neck: Yes normal visual inspection Resp Effort & Inspection: normal respiratory effort, able to speak in complete sentences, no tracheal deviation and symmetric chest movement Auscultation: clear to auscultation bilaterally Cardio Jugular venous distension: no JVD Rate: regular rate Rhythm: regular rhythm Heart sounds: S1 normal heart sound present, S2 normal heart sound present, no gallops and no murmurs GI Inspection: Yes normal to inspection, No distended and Yes obesity Palpation (GI): Soft to palpation, not firm, nontender and No hepatosplenomegaly present Auscultation: normal bowel sounds Neuro General: patient oriented x3 Gait exam (Neuro): Normal gait present Psych Appearance: grossly normal Mental Status: mental status grossly normal Speech and movement: Normal speech and movement present Affect: normal affect Attitude: cooperative Thought process: Normal thought process present Thought content: Normal thought content present Insight: Good insight present (Psych) Judgement: Good judgement present (Psych) Results Reviewed Results Reviewed: Operative Note Date of Service: 01/12/21 Narrative: Operative Information Procedure Description: EGD, Colonoscopy FLEXIBLE TRANSORAL UPPER GASTROINTESTINAL ENDOSCOPY AND COLONOSCOPY PROCEDURE NOTE UPPER ENDOSCOPY Consent: Indications for the procedure and potential complications of bleeding, perforation, reaction to medications and missed diagnosis were discussed with the patient and informed consent was obtained. Instrument: Olympus GIF H 190 J mid size upper endoscope Monitoring: Vital signs and clinical assessment, continuous EKG monitoring, Pulse oximetry, Carbon Dioxide monitoring and blood pressure monitoring were done throughout the procedure. Procedure: The patient was placed in the left lateral decubitis position and pre-procedure medications were administered and a bite block was placed. The endoscope was inserted into the mouth and advanced under direct vision to the third part of duodenum. A careful inspection was made as the upper endoscope was withdrawn including a retroflexed examination of the proximal stomach; Findings and interventions are described below. Findings: Larynx:normal Esophagus: GE junction at 35 cm, diaphragm hiatus at 35 cm, normal mucosa, non obstructive schatzki ring noted Stomach: Patchy erythema in proximal stomach. Biopsies were obtained. Grade 2 flap valve on retroflexed examination of the cardia. Duodenum: Normal bulb and descending duodenum, bx taken Intervention: Biopsies as noted above COLONOSCOPY Procedure: The patient was placed in the left lateral decubitis position and pre-procedure medications were administered. After a digital rectal examination of the ano-rectum, the video colonoscope was inserted into the rectum and advanced through the colon to the cecum/TI. The colonoscope was slowly withdrawn in a retrograde panoramic fashion and the colon mucosa was carefully examined including a retroflexed view of the rectum. Findings and interventions are described below. Procedure Difficulty:easy Findings: Terminal Ileum-normal Cecum:normal Ascending Colon: normal Transverse Colon -normal Descending Colon:normal Sigmoid Colon: normal Rectum: Retroflexion with small internal hemorrhoids, grade I Anorectum - normal Colon preparation: [place] Bowel Preparation Scale Right colon; 3 Transverse colon: 3 Left colon; 3 Impression and Post Procedure Diagnosis: Endoscopy Findings: gastritis' schatzki ring Colonoscopy Findings: internal hemorrhoids Plan: Await Pathology results Repeat Colonoscopy in 10 years or earlier if clinically indicated High fiber diet leaflet avoid straining at stool, epsom salts and sitz bath, anusol supps or cream as needed o/p capsule endoscopy middle stitcher review iron replacement can go home today if no other medical issues Assessment & Plan Assessment & Plan (1) Colon cancer screening: Comment: 01/12/21 Colonoscopy complete with excellent prep- internal hemorrhoid. Code(s): Z12.11 - Encounter for screening for malignant neoplasm of colon Category: Medical Plan: Asymptomatic, no red flag symptoms, prior normal colonoscopy (December 2020); per guidelines, repeat colonoscopy not indicated until 2030. Additional Testing: Cologuard stool DNA test ordered; colonoscopy only if positive. Education: Discussed that for asymptomatic patients with a normal colonoscopy, evidence supports a 10-year interval for repeat screening due to low risk of interval colorectal cancer. Early repeat colonoscopy is not recommended in the absence of new symptoms (e.g., hematochezia, unexplained weight loss, persistent anemia, or change in bowel habits). Stool-based testing is an appropriate interim option if patient desires additional reassurance. (2) Constipation: Code(s): K59.00 - Constipation, unspecified Category: Medical Qualifiers: Constipation type: drug induced constipation Qualified Code(s): K59.03 - Drug induced constipation Plan: Chronic, worsened by weight loss medication and low-fiber diet. Additional Testing: None indicated at present. Medication Management: Start docusate (Colace) 1 tab QHS; titrate to stool consistency. Lifestyle Recommendations: -Increase dietary fiber, handout provided -Maintain hydration (primarily water). -Encourage regular physical activity. Follow-Up: 3 months to assess response and adjust plan as needed. (3) Acid reflux: Comment: 01/12/21 EGD gastritis, schatzki ring Code(s): K21.9 - Gastro-esophageal reflux disease without esophagitis Category: Medical Qualifiers: Esophagitis presence: without esophagitis Qualified Code(s): K21.9 - Gastro-esophageal reflux disease without esophagitis Plan: Resolved, no longer requiring pharmacological management Continue lifestyle modifications Plan Follow-up in 3 months or sooner as needed Time: I spent a total of 30 minutes on the date of encounter which includes: Preparing to see the patient (reviewed previous documentation, test results and medical history) Performing a medically appropriate exam and/or evaluation Ordering medications, tests, and procedures Documenting clinical information in the health record Orders: Orders AMB Mina Today Z12.11 - Encounter for screening for malignant neoplasm of colon Medications: New docusate sodium Take one tablet at bedtime 100 mg PO BEDTIME 90 caps 1RF constipation Coding Level of Care Code New Pt New Pt Level 3 (43783) Patient Type New Diagnoses Colon cancer screening Z12.11 Drug-induced constipation K59.03 Constipation type: drug induced constipation Gastroesophageal reflux disease without esophagitis K21.9 Esophagitis presence: without esophagitis
[2025-06-16 10:41] VITALS: BP 117/83; PULSE 60; O2SAT 98; BMI 29.3
--- OUTSIDE RECORDS SUMMARY | 2025-06-16 11:56 | XMS_ITS | Encounter Summary ---
Author Organization [employer] [employer] Address [address] [place] [address] Care Team Providers Care Real Estate Administrator Name Role Phone Zita Gibbs MD Primary Care Provide r Reason for Visit * Reason Comments Med Refill Encounter Details Date Type Department Care Team ([facility] Contact Info) Description 11/17/2024 Refill [facility] [address], [place] [phone] Zita Gibbs MD [address], [place] [phone] Social History Tobacco Use Types Packs/Day Years [...] Care Team (Late st Contact Info) Description 07/14/2025 10:15 AM EDT Office Visit [facility] [address] [place] [address] Zita Gibbs MD [address] [place] [address] 09/13/2025 11:00 AM EST Office Visit [facility] [address] [place] [address] Tarmarge Yue, OD [address] [place] [address] documented as of this encounter Visit Diagnoses Not on filedocumented in this encounter Additional Health Concerns Assessment Noted Time PHQ-9 Depression Total Score: 0 04/29/20 24 11:03 AM EDT documented as of this encounter Care Teams Real Estate Administrator Relationship Specialty Start Date End Date Zita Gibbs MD [address] [place] [address] PCP - General Family Medicine 05/10/22 documented as of this encounter
== END 2025-06-16 12:50 | disposition home or self-care (01) ==
LOC: HO.HGI 10:37
PROVIDERS: PCP Internal Medicine; Visit Provider Nurse Practitioner Family
DX: Z01.818 Encounter for other preprocedural examination (principal); Z12.11 Encounter for screening for malignant neoplasm of colon; K59.03 Drug induced constipation; K21.9 Gastro-esophageal reflux disease without esophagitis
CPT/HCPCS: 99203

== ENCOUNTER → 2025-06-16 10:36 | Outpatient (BNVA) | payer MEDICAID, SELFPAY | PROVIDERS: PCP Internal Medicine; Visit Provider Nurse Practitioner Family | DX: Z01.818 Encounter for other preprocedural examination (principal); K59.03 Drug induced constipation; K21.9 Gastro-esophageal reflux disease without esophagitis | CPT/HCPCS: 99212 ==